=== PATIENT | female | born 1945 | race Caucasian/White ===

== ENCOUNTER 2016-07-20 09:10 | Observation (INO) | payer MEDICARE, OTHER ==
[2016-07-20] VITALS (7 sets, daily range): BP systolic 99–122; BP diastolic 55–61; PULSE 74–114; RESP 18; TEMP 98.5; Ht 167.6 cm; Wt 59.4 kg
[~2016-07-20] VITALS: Ht 167.6 cm; Wt 59.4 kg
[~2016-07-20 09:10] MED LIST: ALEN1TAB3; ALEN70TA15; ALPR1TAB2; ALPR1TAB7; ASCO500T22; BUDE6HFA; CALC-649; CALC1TAB98; CENTSILV; CHOL10009; DOCU50CA4; DULO60CA6; DUR25P; FOLI-49; HYDR-3504; HYDR200T39; LEVA15HF6; LUBI8CAP4; METO-448; METO25TA54; OLAN10TA16; OLAN20TA3; POTA10TA97; PRED-248; SENOKOTS; SYN1; ZOF8; [UNRECOGNIZED DRUG - CODE]; [UNRECOGNIZED DRUG - CODE]; [UNRECOGNIZED DRUG - CODE]; [UNRECOGNIZED DRUG - CODE]; [UNRECOGNIZED DRUG - CODE]
[2016-07-20] MEDS ORDERED: NITROGLYCERIN (SL) 0.4 MG TAB SL PRN ×2 (09:30→13:00)
[2016-07-20] MEDS ORDERED: METHYLPREDNISOLONE 125 MG INJ IV STA (09:30)
[2016-07-20] MEDS ORDERED: ASPIRIN 325 MG TAB PO STA (09:30)
[2016-07-20] MEDS ORDERED: NITROGLYCERIN 2% 1 GM OINT PKT TD STA (09:30)
[2016-07-20] MEDS: ALBUTEROL 0.5% (NEB) 2.5 MG/0.5 ML AMP INH STA ×2 (09:56→11:03)
[2016-07-20 10:23] LABS: ADD SCAN DIFF NO; BASOPHIL # 0.1 10^3/ul (0.0-0.1); BASOPHILS % 0.5 % (0.0-2.0); EOSINOPHILS # 0.1 10^3/ul (0.0-0.5); HEMATOCRIT 45.7 % (37.0-47.0); HEMOGLOBIN 14.7 g/dl (12.0-16.0); LYMPHOCYTES # 2.6 10^3/ul (0.8-2.9); LYMPHOCYTES % 23.7 % (15.0-51.0); MEAN CORPUSCULAR HEMOGLOBIN 28.5 pg (29.0-33.0); MEAN CORPUSCULAR HGB CONC 32.2 g/dl (32.0-37.0); MEAN CORPUSCULAR VOLUME 88.7 fl (82.0-101.0); MEAN PLATELET VOLUME 10.1 fl (7.4-10.4); NEUTROPHIL # 7.1 10^3/ul (1.6-7.5); NEUTROPHILS % 65.5 % (39.0-77.0); PLATELET COUNT 368 10^3/UL (140-415); RED BLOOD COUNT 5.15 10^6/ul (4.20-5.40); RED CELL DISTRIBUTION WIDTH 13.9 % (11.5-14.5); WHITE BLOOD COUNT 10.9 10^3/ul (4.8-10.8)
--- NOTE | 2016-07-20 10:29 | RADRPT ---
PROCEDURE: XR Chest. CLINICAL INDICATION: Chest pain TECHNIQUE: Single frontal chest x-ray. COMPARISON: 11/04/2008 FINDINGS: The lungs are mildly hyperinflated but clear. No focal opacification is seen. No pneumothorax or p leural effusion is seen. The cardiomediastinal silhouette is unremarkable. The osseous structures are grossly unremarkable. IMPRESSION: 1. No evidence of acute cardiopulmonary disease. 2. Mild hyperinflation. RPTAT: EE .Rush Song MD, MD Date Time Electronically viewed and signed by .Rush Song MD, on 07/20/2016 10:28 .A/
[2016-07-20 10:44] LABS: INR 0.91; PROTIME 12.3 Sec (12.2-14.2)
[2016-07-20 10:45] LABS: PARTIAL THROMBOPLASTIN TIME 27.9 Sec (25.0-35.0)
[2016-07-20 10:54] LABS: ALANINE AMINOTRANSFERASE 25 IU/L (13-69); ALBUMIN 3.8 g/dl (3.3-4.9); ALKALINE PHOSPHATASE 128 IU/L (42-121); ANION GAP 13 (8-16); ASPARTATE AMINO TRANSFERASE 30 IU/L (15-46); BILIRUBIN,INDIRECT 0.2 mg/dl (0-1.1); BILIRUBIN,TOTAL 0.2 mg/dl (0.2-1.3); BLOOD UREA NITROGEN 8 mg/dl (7-20); CALCIUM 10.4 mg/dl (8.4-10.2); CARBON DIOXIDE 30 mmol/L (21-31); CHLORIDE 101 mmol/L (97-110); CREATININE 0.74 mg/dl (0.44-1.00); GLUCOSE 107 mg/dl (70-220); POTASSIUM 4.2 mmol/L (3.5-5.1); SODIUM 140 mmol/L (135-144)
[2016-07-20 11:04] LABS: B-TYPE NATRIURETIC PEPTIDE 98 PG/ML (0-125)
[2016-07-20 11:06] LABS: TROPONIN-I < 0.012 ng/ml (0.00-0.12)
--- NOTE | 2016-07-20 12:29 | ERA ---
ER Documentation Chief Complaint Date/Time DATE: 07/20/16 TIME: 12:18 Chief Complaint CHEST PAIN GEN BODY PAIN FOR THE PAST FEW DAYS. NO TRAUMA/ MILD SOB HPI This is a 71-year-old female complains of chest pain and shortness of breath today. The patient has a history of asthma/COPD and is on oxygen as needed. She states that this morning she developed some substernal chest pressure that radiated to her shoulders and is having a hard time breathing. She says the pressure in her chest it feels different than it does when she has her asthma/ COPD exacerbations. She is not diaphoretic no palpitations no syncope. She says she has had a dry cough over the past 2-3 days. No fever no orthopnea or dyspnea on exertion ROS All systems reviewed and are negative except as per history of present illness. Medications Home Meds Reported Medications Trazodone Hcl* (Trazodone Hcl*) 50 Mg Tablet, 50 MG PO QHS, #30 TAB 07/20/16 Bisacodyl* (Dulcolax*) 5 Mg Tablet.dr, 10 MG PO DAILY Y for CONSTIPATION, TAB 07/20/16 Acetaminophen* (Tylenol*) 500 Mg Tab, 500 MG PO Q4H Y for MILD PAIN LEVEL 1-3, TAB 07/20/16 Discontinued Reported Medications Budesonide-Formoterol Fumarate* (Symbicort*) 6 Gm Hfa.aer.ad 04/20/10 Oxycodone Hcl/Acetaminophen (Oxycodon Hcl-Apap 10-325 Mg Tb) 1 Tab Tablet 04/20/10 Hydroxychloroquine Sulfate* (Hydroxychloroquine Sulfate*) 200 Mg Tablet 04/20/10 Prednisone (Prednisone) 10 Mg Tablet 04/20/10 Lubiprostone* (Amitiza*) 8 Mcg Capsule 04/20/10 Docusate Sod/Senna (Senokot-S) 1 Tab Tab 04/20/10 Docusate Sodium* (Colace*) 50 Mg Capsule 04/20/10 Ondansetron Hcl* (Zofran* ODT) 8 Mg/Tab Tab.rapdis 04/20/10 Hydrocodone Bit-Acetaminophen (Hydrocodone-APAP) 1 Tab Tablet 04/20/10 Levalbuterol* (Xopenex* HFA) 15 Gm Inha 04/20/10 Acetaminophen/Dp-Hydram Hcl (Tylenol Pm Ex-Str Caplet) 1 Tab Tablet 04/20/10 Fentanyl Patch* (Duragesic Patch*) 1 Patch Patch 04/20/10 Alendronate Sodium-Vitamin D3 (Fosamax Plus-D) 1 Tab Tablet 04/20/10 Alprazolam* (Alprazolam*) 1 Mg Tablet 04/20/10 Olanzapine* (Zyprexa*) 20 Mg Tablet 04/20/10 Calcium Carbonate (Calcium) 1 Tab Tablet 04/20/10 Cholecalciferol (Vitamin D3) 1,000 Unit Capsule 04/20/10 Calcium Carbonate/Vitamin D3 (Calcium + D Tablet) 1 Udtab Tablet 04/20/10 Multivitamins/Minerals (Centrum Silver) 1 Tab Tab 04/20/10 Potassium Chloride (Klor-Con) 10 Meq Tablet.sa 04/20/10 Phentermine Hcl (Adipex-P) 37.5 Mg Capsule 04/20/10 Levothyroxine Sodium* (Synthroid*) 100 Mcg Tablet 04/20/10 Metoprolol Tartrate* (Lopressor*) 25 Mg Tab 04/20/10 Duloxetine Hcl* (Cymbalta*) 60 Mg Capsule. 04/20/10 Calcium Carbonate/Vitamin D3 (Calcium With Vitamin D Tablet) 1 Tab Tablet 04/19/10 Simethicone (Mylanta) 125 Mg Capsule 04/19/10 Prednisone (Prednisone) 10 Mg Tablet 04/19/10 Levalbuterol* (Xopenex* HFA) 15 Gm Inha 04/19/10 Ascorbic Acid (Ascorbic Acid With Rh) 500 Mg Tablet 02/13/10 Folic Acid* (Folic Acid*) 1 Mg Tablet 02/13/10 Alendronate Sodium (Fosamax) 70 Mg Tablet 02/13/10 Alprazolam* (Xanax*) 1 Mg Tab 02/13/10 Olanzapine (Zyprexa) 10 Mg Tablet 02/13/10 Fentanyl Patch* (Duragesic Patch*) 1 Patch Patch 02/13/10 Levothyroxine Sodium* (Synthroid*) 100 Mcg Tablet 02/13/10 Metoprolol Succinate (Toprol Xl) 25 Mg Tab.sr.24h 02/13/10 Duloxetine Hcl* (Cymbalta*) 60 Mg Capsule. 02/13/10 Allergies Allergies: Coded Allergies: No Known Drug Allergy (Verified Allergy, Unknown, 02/13/10) PMhx/Soc History of Surgery: Yes (APPENDECTOMY,TUBAL LIGATION,D&C,BREAST LUMPECTOMY, GALLBLADDER,BILATERAL HIP) Anesthesia Reaction: No Hx Neurological Disorder: No Hx Respiratory Disorders: Yes (ASTHMA) Hx Cardiac Disorders: Yes (H/O HEART MURMUR.) Hx Psychiatric Problems: No Hx Alcohol Use: No Hx Substance Use: No Hx Tobacco Use: No Smoking Status: Never smoker FmHx Family History: No coronary disease Physical Exam Vitals Vital Signs Date Time Temp Pulse Resp B/P Pulse Ox O2 Delivery O2 Flow Rate FiO2 07/20/16 12:00 109 20 103/67 100 Room Air 07/20/16 11:04 98 21 99 Nasal Cannula 3.0 07/20/16 09:50 Nasal Cannula 3 07/20/16 09:20 98.5 102 24 122/79 94 Physical Exam Const: Well-developed, well-nourished Head: Atraumatic, normocephalic Eyes: Normal Conjunctiva, PERRLA, EOMI, normal sclera, no nystagmus ENT: Normal External Ears, Nose and Mouth, moist mucus membranes. Neck: Full range of motion. No meningismus, no lymphadenopathy. Resp: Bilateral distant breath sounds with some faint expiratory wheezes no increased work of breathing Cardio: Regular rate and rhythm, no murmurs, S1 S2 present Abd: Soft, non tender x 4, non distended. Normal bowel sounds, no guarding or rebound, no pulsitile abdominal masses or bruits Skin: No petechiae or rashes, no ecchymosis , no maculopapular rash Back: No midline or flank tenderness Ext: No cyanosis, or edema, FROM x 4, normal inspection, neurovascularly intact x 4 Neur: Awake and alert, STR 5/5 x 4, sensation intact x 4, no focal findings, cerebellum intact Psych: Normal Mood and Affect Result Diagram: 07/20/1695407/20/1655 Results 24 hrs Laboratory Tests Test 07/20/16 09:55 White Blood Count 10.910^3/ul Red Blood Count 5.1510^6/ul Hemoglobin 14.7g/dl Hematocrit 45.7% Mean Corpuscular Volume 88.7fl Mean Corpuscular Hemoglobin 28.5pg Mean Corpuscular Hemoglobin Concent 32.2g/dl Red Cell Distribution Width 13.9% Platelet Count 79268^3/UL Mean Platelet Volume 10.1fl Neutrophils % 65.5% Lymphocytes % 23.7% Monocytes % 9.0% Eosinophils % 1.0% Basophils % 0.5% Nucleated Red Blood Cells % 0.0/100WBC Neutrophils # 7.110^3/ul Lymphocytes # 2.610^3/ul Monocytes # 1.010^3/ul Eosinophils # 0.110^3/ul Basophils # 0.110^3/ul Nucleated Red Blood Cells # 0.010^3/ul Prothrombin Time 12.3Sec Prothrombin Time Ratio 1.0 INR International Normalized Ratio 0.91 Activated Partial Thromboplast Time 27.9Sec Sodium Level 140mmol/L Potassium Level 4.2mmol/L Chloride Level 101mmol/L Carbon Dioxide Level 30mmol/L Anion Gap 13 Blood Urea Nitrogen 8mg/dl Creatinine 0.74mg/dl Glucose Level 107mg/dl Calcium Level 10.4mg/dl Total Bilirubin 0.2mg/dl Direct Bilirubin 0.00mg/dl Indirect Bilirubin 0.2mg/dl Aspartate Amino Transf (AST/SGOT) 30IU/L Alanine Aminotransferase (ALT/SGPT) 25IU/L Alkaline Phosphatase 128IU/L Troponin I < 0.012ng/ml B-Type Natriuretic Peptide 98PG/ML Total Protein 8.0g/dl Albumin 3.8g/dl Globulin 4.20g/dl Albumin/Globulin Ratio 0.90 Current Medications Medications (Trade) Dose Ordered Sig/Viraj Route PRN Reason Start Time Stop Time Status Last Admin Dose Admin Aspirin (Aspirin) 325 mg ONCE STAT PO 07/20/16 09:30 07/20/16 09:32 DC 07/20/16 09:40 Nitroglycerin (Nitroglycerin 2% Oint) 1 inch ONCE STAT TD 07/20/16 09:30 07/20/16 12:46 DC 07/20/16 09:41 Nitroglycerin (Nitroglycerin (Sl Tab) 0.4 Mg) 1 tab Q5M UP TO 3 DOSES PRN SL CHEST PAIN 07/20/16 09:30 07/20/16 12:23 Albuterol (Proventil 0.5% (Neb)) 10 mg ONCE STAT INH 07/20/16 09:30 07/20/16 09:32 DC 07/20/16 11:03 Methylprednisolone Sodium Succinate (Solu-Medrol) 125 mg ONCE STAT IV 07/20/16 09:30 07/20/16 09:32 DC 07/20/16 09:40 IV Flush (NS 3 ml) 3 ml PER PROTOCOL IV 07/20/16 13:00 Ondansetron HCl (Zofran Inj) 4 mg Q6H PRN IV NAUSEA AND/OR VOMITING 07/20/16 13:00 Aspirin (Aspirin) 81 mg DAILY PO 07/21/16 09:00 Nitroglycerin (Nitroglycerin (Sl Tab) 0.4 Mg) 1 tab Q5M PRN SL CHEST PAIN 07/20/16 13:00 Acetaminophen (Tylenol Tab) 650 mg Q6H PRN PO PAIN LEVEL 1-3 OR FEVER 07/20/16 13:00 Acetaminophen/ Hydrocodone Bitart ([place] (5/325)) 1 tab Q6H PRN PO PAIN LEVEL 4-6 07/20/16 13:00 Acetaminophen/ Hydrocodone Bitart ([place] (5/325)) 2 tab Q6H PRN PO PAIN LEVEL 7-10 07/20/16 13:00 Docusate Sodium (Colace) 100 mg Q12H PRN PO CONSTIPATION 07/20/16 13:00 Magnesium Hydroxide (Milk Of Mag) 30 ml DAILY PRN PO CONSTIPATION 07/20/16 13:00 Bisacodyl (Dulcolax Supp) 10 mg DAILY PRN HI CONSTIPATION 07/20/16 13:00 Pantoprazole (Protonix Tab) 40 mg DAILY@06 PO 07/21/16 06:00 Enoxaparin Sodium (Lovenox) 40 mg DAILY SC 07/20/16 13:00 Procedures/[facility] PROCEDURE: XR Chest. CLINICAL INDICATION: Chest pain TECHNIQUE: Single frontal chest x-ray. COMPARISON: 11/04/2008 FINDINGS: The lungs are mildly hyperinflated but clear. No focal opacification is seen. No pneumothorax or pleural effusion is seen. The cardiomediastinal silhouette is unremarkable. The osseous structures are grossly unremarkable. IMPRESSION: 1. No evidence of acute cardiopulmonary disease. 2. Mild hyperinflation. RPTAT: EE .Rush Song MD, MD Date Time Electronically viewed and signed by .Rush Song MD, on 07/20/2016 10:28 .A/ CC: ZACHARY CLAY DO EKG: Rate/Rhythm: Sinus tachycardia heart rate 103, right axis deviation pulmonary disease pattern QRS, ST, QT: NORMAL HI, QRS, QT] Impression: Abnormal EKG] Patient received a continuous nebulizer treatment. On reevaluation the patient says her chest pain is improved but is still slightly very. The nurse had not given her sublingual nitroglycerin yet but only put paste on will attempt a sublingual now. Concern is that the patient is having chest pain radiating to her shoulders that feels like a different type of sensation that she usually has when she has her COPD exacerbations. She says she usually does not have this type of pain and she does not have radiation to the shoulder We will admit her for cardiac workup as well as pulmonary therapy. Patient's symptoms are concerning for cardiac cause will require inpatient workup and continuous monitoring. Further w/u for ischemia, arrhythmia, PE or dissection will be deferred to the inpatient team. Accepting Care Team: Current data and ongoing care discussed. Time: Time of admission Primary Provider: marcela Consulting: ALLISON Outstanding Data: none Departure Diagnosis: Primary Impression: Chest pain Qualified Code: R07.9 - Chest pain, unspecified type Additional Impression: COPD exacerbation Condition: Stable ZACHARY CLAY DO July 20, 2016 12:28
[2016-07-20] MEDS ORDERED: TYL500 PO (12:48)
[2016-07-20] MEDS ORDERED: TRAZ50TA18 PO (12:48)
[2016-07-20] MEDS ORDERED: BISA-57 PO (12:48)
[2016-07-20] MEDS ORDERED: SOD CHLORIDE 0.9% 1,000 ML IV SCH (12:53)
[2016-07-20] MEDS ORDERED: ALBUTEROL/IPRATROPIUM (NEB) 3 ML AMP HHN PRN (13:00)
[2016-07-20] MEDS ORDERED: MAGNESIUM HYDROXIDE 30ML CUP PO PRN (13:00)
[2016-07-20] MEDS ORDERED: DOCUSATE SODIUM 100 MG CAP PO PRN (13:00)
[2016-07-20] MEDS ORDERED: BISACODYL 10 MG SUPP PR PRN (13:00)
[2016-07-20] MEDS ORDERED: NACL 0.9% 3 ML SYG IV SCH (13:00)
[2016-07-20] MEDS ORDERED: ACETAMINOPHEN 325 MG TAB PO PRN ×2 (13:00)
[2016-07-20] MEDS ORDERED: ONDANSETRON 4 MG INJ IV PRN ×2 (13:00)
[2016-07-20] MEDS ORDERED: HYDROCODONE/APAP (5/325) TAB PO PRN (13:00)
[2016-07-20] MEDS ORDERED: LEVO88TA3 PO (14:24)
[2016-07-20] MEDS ORDERED: LACTINEX PO (14:25)
[2016-07-20] MEDS ORDERED: DOCU-144 PO (14:25)
[2016-07-20] MEDS ORDERED: PANT40TA4 PO (14:25)
[2016-07-20] MEDS ORDERED: CITA20TA6 PO (14:26)
[2016-07-20] MEDS ORDERED: MELA3TAB51 PO (14:27)
[2016-07-20] MEDS ORDERED: ONDA4TAB95 PO (14:28)
[2016-07-20] MEDS ORDERED: IBUP-1542 PO (14:28)
[2016-07-20] MEDS ORDERED: TRAM-40 PO (14:28)
--- NOTE | 2016-07-20 14:29 | RADRPT ---
PROCEDURE: US Lower extremity venous, bilateral CLINICAL INDICATION: r/o DVT TECHNIQUE: Multiple sonographic images of the bilateral lower extremity deep venous system was ob tained utilizing grayscale, color-flow, compressive sonography and doppler imaging with augmentation . The images were reviewed on a PACS workstation. COMPARISON: None. FINDINGS: There is normal compressibility and flow within the bilateral common femoral, superficial femoral , posterior tibial, peroneal and popliteal veins. RPTAT: AA IMPRESSION: No sonographic evidence for deep venous thrombosis in bilateral lower extremities. Physician Yue Date Time Electronically viewed and signed by Physician Yue on 07/20/2016 14:29 RA/
--- NOTE | 2016-07-20 14:41 | HP ---
DATE OF ADMISSION: 07/20/2016 PRIMARY CARE PHYSICIAN: Dr. Antoine CHIEF COMPLAINT ON ADMISSION: Chest pressure. HISTORY OF PRESENT ILLNESS: This is a 71-year-old female with a previous history of COPD, more or l ess oxygen dependent, but lately has not been really requiring much oxygen and also reported rheumat oid arthritis for which she is not taking any medication, who presented to the emergency department with acute onset of chest pressure this morning. The patient reports that she went to bed in her [facility] last night. She woke up around 4:00 a.m. with severe chest pressure, inability to take a deep breath. No nausea, no vomiting, no dizziness. This per sister, she came to the [facility]. In the emergency department, she did receive nitroglycerin and put on oxygen and also given her history, she did receive steroids and nebulizer treatment. She feels better currentl y. She is noted to be slightly tachycardic, but she did get nebulizer treatment. BNP is within nor mal. Troponin is negative. We will check a D-dimer and bilateral Dopplers of the lower extremities . If there is any additional indication, she will have a CT angiogram. The patient reports that sh checo is wheelchair bound, at least she is not really ambulatory. She denies any previous history of ve nous thromboembolism, coronary artery disease. Based on previous admission, she was on multiple med ications, but the patient reports that currently she only takes 3 medications and none of them are p ulmonary, cardiac or for rheumatoid arthritis. She will be admitted to telemetry observation. ALLERGIES: NO KNOWN ALLERGIES. PAST MEDICAL HISTORY: This is based on the reports on previous admission. 1. COPD, which is confirmed with the patient, occasionally oxygen dependent. 2. Rheumatoid arthritis. 3. Possible hypothyroidism. PAST SURGICAL HISTORY: 1. Status post right total hip replacement in February of 2010. 2. Status post left total hip replacement in October of 2008. 3. Laparoscopic cholecystectomy in 2009. 4. Status post appendectomy remotely. 5. Status post right breast lumpectomy remotely. 6. Status post tubal ligation, dilatation and curettage in the past. REVIEW OF SYSTEMS: As per HPI. OUTPATIENT MEDICATIONS: Listed. The patient only has 3 medications listed: 1. Tylenol 500 mg p.o. q.4h. p.r.n. mild pain. 2. Trazodone 50 mg p.o. at bedtime. 3. Dulcolax 10 mg p.o. daily p.r.n. constipation. PHYSICAL EXAMINATION: VITAL SIGNS: Temperature is 98.5, heart rate of 114, respiratory rate of 20, blood pressure 96/57. Patient is satting 100% on 3 liters nasal cannula. GENERAL: Generally, she is alert. She is oriented x4. She is in no acute distress. She is lying in a stretcher. She feels better with less chest pressure at this point. HEENT: Pupils are equally round and reactive to light. Extraocular muscles are intact. Anicteric sclerae. NECK: No JVD, no thyromegaly noted. HEART: Regular rhythm, tachycardic slightly. ABDOMEN: Soft, nontender, nondistended. Bowel sounds are present. EXTREMITIES: No edema, clubbing or cyanosis. NEUROLOGIC: Grossly intact with 5/5 strength, but limited range of movement due to arthritis, sever e. The patient again is wheelchair bound at most. LABORATORY DATA: White blood cell count is 10.9, hemoglobin 14.7, hematocrit 45.7, platelet count o f 368. Chemistry with a sodium of 140, potassium 4.2, chloride 101, bicarbonate 30, BUN 8, creatini ne 0.74, calcium of 10.4, total bilirubin 0.2, AST 30, ALT 25, alkaline phosphatase of 128, troponin less than 0.012. BNP of 98. Total protein 8.0. INR is 0.91. PT 12.3, PTT 27.9. ELECTROCARDIOGRAM: Does not show any acute ST or T-wave abnormalities. RADIOLOGICAL DATA: Chest x-ray shows no evidence of acute pulmonary disease, mild hyperinflation of the lungs. ASSESSMENT AND PLAN: This is a 71-year-old female with: 1. Chest pressure, new onset this morning, improving. Given her sedentary nature, I will also ru le out for any venous thromboembolism while she is being ruled out for coronary artery disease. Cur rently, we will start with Dopplers and a D-dimer. If they are indicators of possibly venous thromb oembolism, now will proceed with a CT angiogram. A 2-D echocardiogram is ordered. Cardiac enzymes will be trended by the morning. 2. Chronic obstructive pulmonary disease per history. Occasionally O2 dependent. This could be al so chronic obstructive pulmonary disease exacerbation and mild flare. She already received steroids in the ER. We will continue Solu-Medrol 60 mg IV q.8h., with plan to transition to p.o. taper by tomorrow. Continue nebulizer treatment. Continue Advair and Spiriva is added. 3. Previous reported hypothyroidism. Will check TSH and free T4. The patient has not been on any medications as an outpatient. 4. Rheumatoid arthritis. The patient reports that she has been mostly wheelchair bound due to mauro re arthritis. She is not on any medication currently. She will be referred to rheumatology if need ed as an outpatient. 5. Prophylaxis. Lovenox for deep vein thrombosis prophylaxis and Pepcid for gastrointestinal proph ylaxis. DISPOSITION: The patient is admitted to telemetry observation. Follow up on Doppler of the lower e xtremity and D-dimer. Dictated By: SHELBI MATTSON/SUMEET Conf#: [id number] DID#: [id number]
[2016-07-20] MEDS: METHYLPREDNISOLONE 125 MG INJ IV SCH ×2 (15:27→21:08)
[2016-07-20] MEDS: ENOXAPARIN 40 MG/0.4 ML SYG SC SCH (15:32)
--- NOTE | 2016-07-20 15:34 | RADRPT ---
Echocardiogram Report Patient Name: KIMI GOLD Gender: Female Date: 1945 Study Date: 20-Jul-2016 Freelance Director: Fabian Gaytan RDCS Location: 6 Ref. Physician: VENKAT HOLLINGSWORTH Quality: Technically Difficult Study Procedures: Transthoracic echocardiogram with complete 2D, M-Mode, and doppler examination. Indications: Chest Pain. 2D/M Mode Doppler Measurement Value Normal Ranges Measurement Value Normal Ranges LVIDd 2D 2.8 3.5 - 5.6 cm AV Peak Juan 0.9 m/sec LVIDs 2D 2.4 2.1 - 4.1 cm AV Peak PG 3.5 mmHg LVPWd 2D 0.9 0.6 - 1.1 cm LVOT Peak Juan 0.9 m/sec IVSd 2D 1.0 0.6 - 1.1 cm LVOT Peak PG 3.2 mmHg AoR Diam 2D 1.9 2.0 - 3.7 cm MV E Peak Juan 0.6 m/sec EDV 2D 29.7 cm3 MV A Peak Juan 0.8 m/sec ESV 2D 13.1 cm3 MV E/A 0.7 LA Dimen 2D 2.2 2.3 - 4.0 cm MV Decel Time 180 msec MV Decel Gilmer 3 MV E/A 0.7 Findings Left Ventricle: Overall, normal left ventricular systolic function. Not all segments visualized. Normal left ventricular cavity size. Normal left ventricular wall thickness. Ejection fraction is visually estimated at 65 %. Tissue Doppler/Mitral Doppler indices are consistent with impaired relaxation (Stage I diastolic dysfunction). Right Ventricle: Normal right ventricular size. Normal right ventricular systolic function. Left Atrium: The left atrium is normal in size. Right Atrium: The right atrium is normal in size. Mitral Valve: Mitral valve is not well visualized. Trace mitral regurgitation. Aortic Valve: No significant aortic stenosis or insufficiency. Aortic valve not well visualized. Tricuspid Valve: Tricuspid valve not well visualized. Estimated peak PA systolic pressure 22 mmHg. There is trace tricuspid regurgitation. Pulmonic Valve: Pulmonic valve not well visualized. Pericardium: Normal pericardium with no significant pericardial effusion. Aorta: Normal aortic root. IVC: Normal size and normal respiratory collapse consistent with normal right atrial pressure. Conclusions 1.Overall, normal left ventricular systolic function. Not all segments visualized. Normal left ventricular cavity size. Normal left ventricular wall thickness. Ejection fraction is visually estimated at 65 %. Tissue Doppler/Mitral Doppler indices are consistent with impaired relaxation (Stage I diastolic dysfunction). 2.Normal right ventricular size. Normal right ventricular systolic function. 3.The left atrium is normal in size. 4.The right atrium is normal in size. 5.No significant valvular stenosis or regurgitation seen. 6.Normal pericardium with no significant pericardial effusion. Electronically Signed By: Henok Devries 20-Jul-2016 15:33:51 -0700 Patient Name: KIMI GOLD Study Date: 20-Jul-2016 [id number]
[2016-07-20 15:39] LABS: D-DIMER 665.81 ng/ml (<460)
[2016-07-20] MEDS: ALBUTEROL/IPRATROPIUM (NEB) 3 ML AMP HHN SCH ×2 (16:00→23:17)
[2016-07-20 17:00] LABS: CK-MB 0.23 ng/ml (0.0-2.4)
[2016-07-20 17:09] LABS: CREATINE KINASE < 20 IU/L (23-200); TROPONIN-I < 0.012 ng/ml (0.00-0.12)
[2016-07-20] MEDS: SALMETEROL/FLUTICASONE 250/50 INHA INH SCH (20:07)
[2016-07-20] MEDS: HYDROCODONE/APAP (5/325) TAB PO PRN ×2 (20:08→21:07)
[2016-07-20] MEDS ORDERED: SOD CHLORIDE 0.9% 100 ML ONE (20:09)
[2016-07-20] MEDS ORDERED: IOHEXOL 100 ML ONE (20:09)
[2016-07-20] MEDS ORDERED: IOHEXOL 350MG/ML 50 ML BTL ONE (20:09)
[2016-07-20] MEDS ORDERED: traZODone 50 MG TAB PO SCH (21:00)
--- NOTE | 2016-07-20 21:03 | RADRPT ---
PROCEDURE: CTA Chest. CLINICAL INDICATION: Chest pain and shortness of breath TECHNIQUE: The study was performed utilizing a GE 64-slice multidetector CT scanner. Multiple axia l sections were obtained from the thoracic inlet to the upper abdomen with the use of 88 cc of Omnip aque- 350 nonionic intravenous contrast material. Coronal and sagittal reformations were obtained. 3 -D reformatted images were performed. The images were reviewed on a PACS workstation. The CTDI vol is 23.74 mGy and the DLP is 385.68 mGy-cm. COMPARISON: No prior studies are available for comparison. FINDINGS: No filling defect in the pulmonary arterial system is seen. The main and central pulmonary arteries are normal in course and caliber. Aortic calcifications are seen. The aorta is without aneurysmal d ilatation or dissection. Diffuse central lobular emphysematous changes are seen. Scarring in the ri ght middle lobe in bilateral lower lobes is seen. No dense consolidation is seen. Bilateral peribr onchial thickening is seen. The heart is not enlarged. No pericardial effusion is seen. No abnorma lly enlarged lymph nodes in the mediastinum, hilum, or axilla are seen. No suspicious osteoblastic f or osteolytic lesions are seen. Diffuse osteopenia is seen. The compression fracture of the T12 vert ebral body is seen which demonstrates approximately 25% height loss. Approximate 2-3 mm retropulsio n of the posterior superior endplate of T12 is seen. Mild height loss is also seen of the inferior endplates of T4 and L1. The gallbladder has been removed. A left renal cyst is seen. The visualized portions of the upper abdomen is grossly unremarkable. IMPRESSION: 1. No CT evidence for pulmonary embolus. 2. Diffuse centrilobular emphysematous changes. 3. Multiple compression fractures as detailed above which is most prominent at T12 with approximate ly 25% height loss and 2-3 mm of retropulsion of the posterior superior endplate. Consider further evaluation with an MRI as clinically warranted. 4. Bilateral peribronchial thickening which may be related to bronchitis. RPTAT: HPNM Physician Emmanuel Date Time Electronically viewed and signed by Physician Emmanuel on 07/20/2016 21:02 /
[2016-07-20] MEDS: METOPROLOL 25 MG TAB PO SCH (22:45)
[2016-07-20] MEDS: SOD CHLORIDE 0.9% 1,000 ML IV SCH (22:46)
[2016-07-21] VITALS (9 sets, daily range): BP systolic 87–101; BP diastolic 48–56; PULSE 85–112; RESP 18–20
[2016-07-21 00:48] LABS: CREATINE KINASE < 20 IU/L (23-200)
[2016-07-21 00:50] LABS: CK-MB 0.27 ng/ml (0.0-2.4); TROPONIN-I < 0.012 ng/ml (0.00-0.12)
[2016-07-21] MEDS ORDERED: PANTOPRAZOLE (EC) 40 MG TAB PO SCH (06:00)
[2016-07-21] MEDS: METHYLPREDNISOLONE 125 MG INJ IV SCH ×2 (06:00→14:00)
[2016-07-21 07:33] LABS: ADD SCAN DIFF NO
[2016-07-21 07:35] LABS: BASOPHILS % 0.1 % (0.0-2.0); HEMATOCRIT 36.4 % (37.0-47.0); HEMOGLOBIN 11.7 g/dl (12.0-16.0); LYMPHOCYTES # 1.4 10^3/ul (0.8-2.9); LYMPHOCYTES % 12.5 % (15.0-51.0); MEAN CORPUSCULAR HEMOGLOBIN 28.3 pg (29.0-33.0); MEAN CORPUSCULAR HGB CONC 32.1 g/dl (32.0-37.0); MEAN CORPUSCULAR VOLUME 87.9 fl (82.0-101.0); MEAN PLATELET VOLUME 9.9 fl (7.4-10.4); MONOCYTE # 0.3 10^3/ul (0.3-0.9); MONOCYTES % 2.3 % (0.0-11.0); NEUTROPHIL # 9.7 10^3/ul (1.6-7.5); NEUTROPHILS % 84.6 % (39.0-77.0); PLATELET COUNT 308 10^3/UL (140-415); RED BLOOD COUNT 4.14 10^6/ul (4.20-5.40); WHITE BLOOD COUNT 11.4 10^3/ul (4.8-10.8)
[2016-07-21] MEDS: ALBUTEROL/IPRATROPIUM (NEB) 3 ML AMP HHN SCH ×2 (07:49→16:21)
[2016-07-21 07:55] LABS: CALCIUM 9.5 mg/dl (8.4-10.2); CHOL/HDL RATIO 5.1 RATIO; CREATININE 0.72 mg/dl (0.44-1.00); MAGNESIUM 1.8 mg/dl (1.7-2.5); POTASSIUM 4.1 mmol/L (3.5-5.1)
[2016-07-21] MEDS: METOPROLOL 25 MG TAB PO SCH (08:09)
[2016-07-21] MEDS: SALMETEROL/FLUTICASONE 250/50 INHA INH SCH (08:21)
[2016-07-21] MEDS: ENOXAPARIN 40 MG/0.4 ML SYG SC SCH (08:23)
[2016-07-21] MEDS ORDERED: TIOTROPIUM 18 MCG CAPSULE INHA DEV INH SCH (09:00)
[2016-07-21] MEDS ORDERED: ASPIRIN 81 MG TAB PO SCH (09:00)
[2016-07-21] MEDS: SOD CHLORIDE 0.9% 1,000 ML IV SCH (11:00)
--- NOTE | 2016-07-21 11:57 | PN ---
Date/Time of Note Date/Time of Note DATE: 07/21/16 TIME: 11:48 Assessment/Plan VTE Prophylaxis VTE Prophylaxis Intervention: LMWH Lines/Catheters IV Catheter Type (from [facility] Saline Lock Urinary Cath still in place: No Assessment/Plan Assessment/Plan 71-year-old female with: 1. Chest pressure, new onset this morning, improving. Seems non cardiac chest pressure, 2ry to COPD Resolved and CE negative x 3 2D echo ordered Continue COPD treatment CTA negative and Doppler negative 2. Chronic obstructive pulmonary disease per history, home O2 at least while sleeping Advair and Spiriva added along with DuoNeb prn D/c with Medrol dose pack 3. Hypothyroidism. TFTs wnl and on Synthroid per updated med rec. 4. Rheumatoid arthritis. The patient reports that she has been mostly wheelchair bound due to severe arthritis. She is not on any medication currently. She will be referred to rheumatology if needed as an outpatient. 5. Chronic pain with hx of T spine compression fx, pelvic fx ... On tylenol at home, at most tramadol prn at home to be continued Prophylaxis. Lovenox for deep vein thrombosis prophylaxis and Pepcid for gastrointestinal prophylaxis. DISPOSITION: D/c home and follow up with Home Health RN and PCP Outpatient cardiology referral as needed . Subjective 24 Hr Interval Summary Free Text/Dictation Patient doing better, back to baseline ans no chest pressure all w/u negative so far D/c home with HH today Exam/Review of Systems Vital Signs Vitals Vital Signs Date Time Temp Pulse Resp B/P Pulse Ox O2 Delivery O2 Flow Rate FiO2 07/21/16 11:27 98.1 93 20 88/50 97 07/21/16 07:50 2.0 07/21/16 07:50 Nasal Cannula Intake and Output 07/20/16 07/20/16 07/21/16 15:00 23:00 07:00 Intake Total 280 ml Balance 280 ml Exam Constitutional: alert, frail, oriented Respiratory: clear to auscultation, normal air movement Cardiovascular: nl pulses, regular rate and rhythm Gastrointestinal: non-tender, soft Musculoskeletal: nl extremities to inspection Extremities: normal pulses, other (no edema, clubibng or cyanosis ) Neurological: GOLD STAMPER II-XII intact, nl mental status, nl speech, other ( generalised weakness mostly bed/wheelchair ridden ) Results Result Diagram: 07/21/16 0647 07/21/16 0647 Results 24 hrs Laboratory Tests Test 07/20/16 15:06 07/20/16 16:10 07/20/16 21:55 07/21/16 06:47 D-Dimer 665.81 H D-Dimer Comment Thyroid Stimulating Hormone (TSH) 0.035 L Free Thyroxine 1.42 Creatine Kinase < 20 L < 20 L Creatine Kinase Index Creatinine Kinase MB (Mass) 0.23 0.27 Troponin I < 0.012 < 0.012 White Blood Count 11.4 H Red Blood Count 4.14 L Hemoglobin 11.7 #L Hematocrit 36.4 #L Mean Corpuscular Volume 87.9 Mean Corpuscular Hemoglobin 28.3 L Mean Corpuscular Hemoglobin Concent 32.1 Red Cell Distribution Width 14.0 Platelet Count 308 Mean Platelet Volume 9.9 Neutrophils % 84.6 H Lymphocytes % 12.5 L Monocytes % 2.3 Eosinophils % 0.0 Basophils % 0.1 Nucleated Red Blood Cells % 0.0 Neutrophils # 9.7 H Lymphocytes # 1.4 Monocytes # 0.3 Eosinophils # 0.0 Basophils # 0.0 Nucleated Red Blood Cells # 0.0 Sodium Level 137 Potassium Level 4.1 Chloride Level 106 Carbon Dioxide Level 26 Anion Gap 9 Blood Urea Nitrogen 18 # Creatinine 0.72 Glucose Level 159 Hemoglobin A1c 5.4 Calcium Level 9.5 Magnesium Level 1.8 Triglycerides Level 77 Cholesterol Level 185 LDL Cholesterol, Calculated 134 HDL Cholesterol 36 Cholesterol/HDL Ratio 5.1 Medications Medications Current Medications Ondansetron HCl (Zofran Inj) 4 mg Q6H PRN IV NAUSEA AND/OR VOMITING; Start at 13:00 Aspirin (Aspirin) 81 mg DAILY PO Last administered on 07/21/16 08:20; Admin Dose 81 MG; Start 07/21/16 at 09:00 Nitroglycerin (Nitroglycerin (Sl Tab) 0.4 Mg) 1 tab Q5M PRN SL CHEST PAIN; Start 07/20/16 at 13:00 Acetaminophen (Tylenol Tab) 650 mg Q6H PRN PO PAIN LEVEL 1-3 OR FEVER; Start at 13:00 Acetaminophen/ Hydrocodone Bitart ([place] (5/325)) 1 tab Q6H PRN PO PAIN LEVEL 4 -6 Last administered on 07/20/16 21:07; Admin Dose 1 TAB; Start 07/20/16 at 13: 00 Acetaminophen/ Hydrocodone Bitart ([place] (5/325)) 2 tab Q6H PRN PO PAIN LEVEL 7 -10 Last administered on 07/21/16 08:22; Admin Dose 2 TAB; Start 07/20/16 at 13 :00 Docusate Sodium (Colace) 100 mg Q12H PRN PO CONSTIPATION; Start 07/20/16 at 13: 00 Magnesium Hydroxide (Milk Of Mag) 30 ml DAILY PRN PO CONSTIPATION; Start at 13:00 Bisacodyl (Dulcolax Supp) 10 mg DAILY PRN [place] CONSTIPATION; Start 07/20/16 at 13 :00 Pantoprazole (Protonix Tab) 40 mg DAILY@06 PO Last administered on 07/21/16 06 :00; Admin Dose 40 MG; Start 07/21/16 at 06:00 Enoxaparin Sodium (Lovenox) 40 mg DAILY SC Last administered on 07/21/16 08:23 ; Admin Dose 40 MG; Start 07/20/16 at 13:00 Methylprednisolone Sodium Succinate (Solu-Medrol) 60 mg Q8 IV Last administered on 07/21/16 06:00; Admin Dose 60 MG; Start 07/20/16 at 14:00 Tiotropium [place] (Spiriva) 1 inh DAILY INH Last administered on 07/21/16 08: 21; Admin Dose 1 INH; Start 07/21/16 at 09:00 Trazodone HCl (Desyrel) 50 mg QHS PO Last administered on 07/20/16 22:07; Admin Dose 50 MG; Start 07/20/16 at 21:00 Salmeterol Xinafoate/ Fluticasone 1 inh 1 inh BID INH Last administered on 07/21 08:21; Admin Dose 1 INH; Start 07/20/16 at 21:00 Sodium Chloride (NS) 1,000 ml @ 80 mls/hr [id number] IV Last administered on 07/20 22:46; Admin Dose 80 MLS/HR; Start 07/20/16 at 22:30 Metoprolol Tartrate (Lopressor) 25 mg BID PO Last administered on 07/20/16 22: 45; Admin Dose 25 MG; Start 07/20/16 at 22:30 Procedures Procedures PROCEDURE: CTA Chest. CLINICAL INDICATION: Chest pain and shortness of breath TECHNIQUE: The study was performed utilizing a GE 64-slice multidetector CT scanner. Multiple axial sections were obtained from the thoracic inlet to the upper abdomen with the use of 88 cc of Omnipaque- 350 nonionic intravenous contrast material. Coronal and sagittal reformations were obtained. 3-D reformatted images were performed. The images were reviewed on a PACS workstation. The CTDI vol is 23.74 mGy and the DLP is 385.68 mGy-cm. COMPARISON: No prior studies are available for comparison. FINDINGS: No filling defect in the pulmonary arterial system is seen. The main and central pulmonary arteries are normal in course and caliber. Aortic calcifications are seen. The aorta is without aneurysmal dilatation or dissection. Diffuse central lobular emphysematous changes are seen. Scarring in the right middle lobe in bilateral lower lobes is seen. No dense consolidation is seen. Bilateral peribronchial thickening is seen. The heart is not enlarged. No pericardial effusion is seen. No abnormally enlarged lymph nodes in the mediastinum, hilum, or axilla are seen. No suspicious osteoblastic for osteolytic lesions are seen. Diffuse osteopenia is seen. The compression fracture of the T12 vertebral body is seen which demonstrates approximately 25% height loss. Approximate 2-3 mm retropulsion of the posterior superior endplate of T12 is seen. Mild height loss is also seen of the inferior endplates of T4 and L1. The gallbladder has been removed. A left renal cyst is seen. The visualized portions of the upper abdomen is grossly unremarkable. IMPRESSION: 1. No CT evidence for pulmonary embolus. 2. Diffuse centrilobular emphysematous changes. 3. Multiple compression fractures as detailed above which is most prominent at T12 with approximately 25% height loss and 2-3 mm of retropulsion of the posterior superior endplate. Consider further evaluation with an MRI as clinically warranted. 4. Bilateral peribronchial thickening which may be related to bronchitis. RPTAT: HPNM Physician Emmanuel Date Time Electronically viewed and signed by Physician Emmanuel on 07/20/2016 21 :02 PROCEDURE: US Lower extremity venous, bilateral CLINICAL INDICATION: r/o DVT TECHNIQUE: Multiple sonographic images of the bilateral lower extremity deep venous system was obtained utilizing grayscale, color-flow, compressive sonography and doppler imaging with augmentation. The images were reviewed on a PACS workstation. COMPARISON: None. FINDINGS: There is normal compressibility and flow within the bilateral common femoral, superficial femoral , posterior tibial, peroneal and popliteal veins. RPTAT: AA IMPRESSION: No sonographic evidence for deep venous thrombosis in bilateral lower extremities. SHELBI HOLLINGSWORTH July 21, 2016 11:57 SHELBI HOLLINGSWORTH July 21, 2016 11:57
--- NOTE | 2016-07-21 11:58 | PDOCDIS ---
Discharge Instructions CONDITION Patient Condition: Good HOME CARE INSTRUCTIONS: Diet Instructions: Regular ACTIVITY: Activity Restrictions: Slowly Increase Activity FOLLOW UP/APPOINTMENTS Appointments Home O2 Home Health RN or RT Follow up with PCP within 1 week SHELBI HOLLINGSWORTH July 21, 2016 11:58
[2016-07-21] MEDS ORDERED: TIOT18CA INH (12:01)
[2016-07-21] MEDS ORDERED: MED4DP PO (12:01)
[2016-07-21] MEDS ORDERED: IPRA3AMP HHN (12:01)
[2016-07-21] MEDS ORDERED: ADV25050 INH (12:01)
[2016-07-21] MEDS ORDERED: TRAM50TA2 PO (12:08)
[2016-07-21] MEDS ORDERED: CITALOPRAM 20 MG TAB PO SCH (12:30)
[2016-07-21] MEDS ORDERED: traMADol 50 MG TAB PO PRN (12:30)
[2016-07-21] MEDS ORDERED: IBUPROFEN 600 MG TAB PO PRN (12:30)
[2016-07-21] MEDS ORDERED: DOCUSATE SODIUM 100 MG CAP PO SCH (21:00)
[2016-07-22] MEDS ORDERED: LEVOTHYROXINE 88 MCG TAB PO SCH (07:00)
== END 2016-07-21 18:36 | disposition home or self-care (01) ==
LOC: E/R 09:10 → MS4 12:54
PROVIDERS: ADMIT Internal Medicine; ATTEND Internal Medicine
DX: R07.89 Other chest pain (principal); J45.909 Unspecified asthma, uncomplicated; J44.9 Chronic obstructive pulmonary disease, unspecified; Z99.81 Dependence on supplemental oxygen; M06.9 Rheumatoid arthritis, unspecified; Z96.643 Presence of artificial hip joint, bilateral; Z90.49 Acquired absence of other specified parts of digestive tract; G89.29 Other chronic pain
CPT/HCPCS: 36415; 71010; 71275; 80048; 80053; 80061; 82550; 82553; 83036; 83735; 83880; 84439; 84443; 84484; 85025; 85378; 85610; 85730; 93005; 93306; 93970; 94640; 94644; 94664; 96372; 96374; 99285; G0378; J1650; J2930; J7030; Q9967

== ENCOUNTER 2016-12-27 13:49 | Emergency (ER) | payer OTHER ==
[~2016-12-27] VITALS: Ht 160 cm; Wt 58.2 kg
[~2016-12-27 13:49] MED LIST changes: +ADV25050 INH; -ALEN1TAB3; -ALEN70TA15; -ALPR1TAB2; -ALPR1TAB7; -ASCO500T22; +BISA-57 PO; -BUDE6HFA; -CALC-649; -CALC1TAB98; -CENTSILV; -CHOL10009; +CITA20TA6 PO; +DOCU-144 PO; -DOCU50CA4; -DULO60CA6; -DUR25P; -FOLI-49; -HYDR-3504; -HYDR200T39; +IBUP-1542 PO; +IPRA3AMP HHN; +LACTINEX PO; -LEVA15HF6; +LEVO88TA3 PO; -LUBI8CAP4; +MED4DP PO; +MELA3TAB51 PO; -METO-448; -METO25TA54; -OLAN10TA16; -OLAN20TA3; +ONDA4TAB95 PO; +PANT40TA4 PO; -POTA10TA97; -PRED-248; -SENOKOTS; -SYN1; +TIOT18CA INH; +TRAM50TA2 PO; +TRAZ50TA18 PO; +TYL500 PO; -ZOF8; -[UNRECOGNIZED DRUG - CODE]; -[UNRECOGNIZED DRUG - CODE]; -[UNRECOGNIZED DRUG - CODE]; -[UNRECOGNIZED DRUG - CODE]; -[UNRECOGNIZED DRUG - CODE]
[2016-12-27 13:56] VITALS: Ht 160 cm; Wt 58.2 kg
[2016-12-27] MEDS ORDERED: METOCLOPRAMIDE 10 MG INJ IV STA (16:25)
[2016-12-27] MEDS ORDERED: morphine 4 MG/ML VIAL IV STA (16:25)
[2016-12-27] MEDS ORDERED: KETOROLAC 30 MG INJ IV STA (16:25)
[2016-12-27] MEDS ORDERED: SOD CHLORIDE 0.9% 500 ML IV STA (16:25)
--- NOTE | 2016-12-27 18:21 | RADRPT ---
PROCEDURE: Noncontrast CT Head. CLINICAL INDICATION: Headache TECHNIQUE: Noncontrast CT of the head was obtained. The administered radiation dose was CTDI vol = 43.2 mGy, DLP = 846.97 mGy-cm. One or more of the following dose reduction techniques were used: Aut omated exposure control, Adjustment of the mA and/or kV according to patient size, or Use of iterati ve reconstruction technique. COMPARISON: There are no similar studies submitted for comparison. FINDINGS: There is no acute intracranial hemorrhage, midline shift, or mass effect. No extra-axial collection is seen. The cerebral helton-white matter differentiation appears preserved. Patchy and confluent low attenuation in the periventricular, deep, and subcortical cerebral white matter is nonspecific, but suggestive of mild to moderate chronic microvascular ischemic white matter change per bilateral symm etric basal ganglia calcifications are noted, nonspecific. There is mild to moderate diffuse cerebra l volume loss with compensatory diffuse cerebral sulcal and ventricular enlargement. The basal ciste rns are preserved. There is intracranial calcific atherosclerotic disease involving the internal car otid arteries and vertebral arteries bilaterally. There is mild diffuse cerebellar volume loss. The brainstem and cerebellum are otherwise grossly unremarkable, although suboptimally evaluated with CT secondary to beam-hardening artifact. The visualized paranasal sinuses and mastoid air cells are clear. No acute fracture or suspicious osseous lesion is identified. IMPRESSION: 1. No evidence of an acute intracranial process. 2. Evidence of mild to moderate chronic microangiopathic cerebral white matter change. 3. Mild to moderate diffuse cerebral volume loss, likely age-related. 4. Intracranial calcific atherosclerotic disease involving the internal carotid arteries and vertebr al arteries bilaterally. RPTAT: HRC Physician Chelsea Date Time Electronically viewed and signed by Physician Chelsea on 12/27/2016 18:20 /
[2016-12-27] MEDS ORDERED: HYDROmorphONE 1 MG/ML SYG IV STA (18:51)
[2016-12-27 18:52] VITALS: BP 118/57; PULSE 82; RESP 18; TEMP 98.1
[2016-12-27] MEDS ORDERED: ACET325T33 PO (20:37)
--- NOTE | 2016-12-27 21:00 | ERD ---
ER Documentation Chief Complaint Chief Complaint gayle R102 from home, [place] X2 WKS HPI Patient is a 71-year-old female with past medical history of chronic pain, osteoporosis, rheumatoid arthritis presenting to the emergency department with complaints of intermittent headache for 1 week. It is localized to her left occipital area. She describes the pain as a stabbing feeling. She did have one episode of vomiting 2 days ago. She denies unilateral weakness, fevers, urinary symptoms, dizziness, or other symptoms currently. ROS All systems reviewed and are negative except as per history of present illness. Medications Home Meds Active Scripts Acetaminophen* (Tylenol*) 325 Mg Tablet, 2 TAB PO Q6 Y for PAIN AND OR ELEVATED TEMP, #20 TAB Prov:LUIS MORA PA-C 12/27/16 Tramadol HCl (Tramadol HCl) 50 Mg Tablet, 50 MG PO Q8H Y for PAIN LEVEL 6-10, # 60 TAB Prov:SHELBI HOLLINGSWORTH 07/21/16 Salmeterol Xinaf/Fluticasone* (Advair*) 250-50 Diskus Inhaler, 1 INH INH BID, # 1 INHALER 3 Refills Prov:SHELBI HOLLINGSWORTH 07/21/16 Methylprednisolone* (Medrol* DOSE PACK) 4 Mg/Dose-Pack Tab.ds.pk, 4 MG PO . DIRECTED, #1 PACKET Prov:SHELBI HOLLINGSWORTH 07/21/16 Tiotropium [place]* (Spiriva*) 18 Mcg Cap.w.dev, 1 INH INH DAILY, #1 INHALER 3 Refills Prov:SHELBI HOLLINGSWROTH 07/21/16 Ipratropium-Albuterol (Ipratropium-Albuterol) 0.5-3 Mg/3 Ml Ampul.neb, 3 ML HHN Q4H RESP THERAPY Y for SHORTNESS OF BREATH, #90 3 Refills Prov:SHELBI HOLLINGSWORTH 07/21/16 Reported Medications Ibuprofen* (Ibuprofen*) 600 Mg Tablet, 600 MG PO Q8 Y for PAIN, TAB 07/20/16 Ondansetron Hcl* (Ondansetron Hcl*) 4 Mg Tablet, 4 MG PO Q6H Y for NAUSEA AND/ OR VOMITING, TAB 07/20/16 Melatonin (Melatin) 3 Mg Tablet, 6 MG PO QHS, TAB 07/20/16 Citalopram Hydrobromide* (Citalopram Hydrobromide*) 20 Mg Tablet, 20 MG PO DAILY , #30 TAB 07/20/16 Pantoprazole* (Pantoprazole*) 40 Mg Tablet.dr, 40 MG PO AC BREAKFAST, TAB 07/20/16 Docusate Sodium* (Colace*) 100 Mg Capsule, 100 MG PO BID, #60 CAP 07/20/16 Lactobacillus Acidophilus* (Lactinex*) 1 Tab Chew, 2 TAB PO BID, TAB 07/20/16 Levothyroxine Sodium* (Levothyroxine Sodium*) 88 Mcg Tablet, 88 MCG PO BEFORE BREAKFAST, #30 TAB 07/20/16 Trazodone Hcl* (Trazodone Hcl*) 50 Mg Tablet, 50 MG PO QHS, #30 TAB 07/20/16 Bisacodyl* (Dulcolax*) 5 Mg Tablet.dr, 10 MG PO DAILY Y for CONSTIPATION, TAB 07/20/16 Acetaminophen* (Tylenol*) 500 Mg Tab, 500 MG PO Q4H Y for MILD PAIN LEVEL 1-3, TAB 07/20/16 Allergies Allergies: Coded Allergies: No Known Drug Allergy (Verified Allergy, Unknown, 02/13/10) PMhx/Soc History of Surgery: Yes Anesthesia Reaction: No Hx Neurological Disorder: No Hx Respiratory Disorders: Yes Hx Cardiac Disorders: Yes Hx Psychiatric Problems: No Hx Miscellaneous Medical Probl: Yes (Thyroid) Hx Alcohol Use: No Hx Substance Use: No Hx Tobacco Use: No Smoking Status: Former smoker Physical Exam Vitals Vital Signs Date Time Temp Pulse Resp B/P Pulse Ox O2 Delivery O2 Flow Rate FiO2 12/27/16 18:52 98.1 82 18 118/57 97 Room Air 12/27/16 13:56 98.4 101 20 112/67 96 Physical Exam Const: Nontoxic, well-appearing female resting in the [place] in no acute distress. Head: Atraumatic Eyes: Normal Conjunctiva ENT: Normal External Ears, Nose and Mouth. Neck: Full range of motion..~ No meningismus. Resp: Clear to auscultation bilaterally Cardio: Regular rate and rhythm, no murmurs Abd: Soft, non tender, non distended. Normal bowel sounds Skin: No petechiae or rashes Back: No midline or flank tenderness Ext: No cyanosis, or edema. Cranial nerves intact. Strength and sensation intact in bilateral upper and lower extremities. Neur: Awake and alert Psych: Normal Mood and Affect Result Diagram: 12/27/16 1600 12/27/16 1600 Results 24 hrs Laboratory Tests Test 12/27/16 16:00 White Blood Count 11.410^3/ul Red Blood Count 5.5210^6/ul Hemoglobin 15.8g/dl Hematocrit 47.8% Mean Corpuscular Volume 86.6fl Mean Corpuscular Hemoglobin 28.6pg Mean Corpuscular Hemoglobin Concent 33.1g/dl Red Cell Distribution Width 18.2% Platelet Count 86991^3/UL Mean Platelet Volume 8.9fl Neutrophils % 62.8% Lymphocytes % 26.2% Monocytes % 9.6% Eosinophils % 0.6% Basophils % 0.4% Nucleated Red Blood Cells % 0.0/100WBC Neutrophils # 7.210^3/ul Lymphocytes # 3.010^3/ul Monocytes # 1.110^3/ul Eosinophils # 0.110^3/ul Basophils # 0.110^3/ul Nucleated Red Blood Cells # 0.010^3/ul Prothrombin Time 13.4Sec Prothrombin Time Ratio 1.0 INR International Normalized Ratio 1.02 Activated Partial Thromboplast Time 28.5Sec Sodium Level 138mmol/L Potassium Level 4.2mmol/L Chloride Level 101mmol/L Carbon Dioxide Level 27mmol/L Anion Gap 14 Blood Urea Nitrogen 29mg/dl Creatinine 0.91mg/dl Glucose Level 83mg/dl Calcium Level 10.3mg/dl Current Medications Medications (Trade) Dose Ordered Sig/Viraj Route PRN Reason Start Time Stop Time Status Last Admin Dose Admin Sodium Chloride (NS) 500 ml @ 500 mls/hr Q1H STAT IV 12/27/16 16:25 12/27/16 17:24 DC 12/27/16 17:06 Metoclopramide HCl (Reglan) 10 mg ONCE STAT IV 12/27/16 16:25 12/27/16 16:29 DC 12/27/16 17:06 Morphine Sulfate (morphine) 4 mg ONCE STAT IV 12/27/16 16:25 12/27/16 16:29 DC 12/27/16 17:06 Ketorolac Tromethamine (Toradol) 30 mg ONCE STAT IV 12/27/16 16:25 12/27/16 16:29 DC 12/27/16 17:06 Hydromorphone HCl (Dilaudid) 1 mg ONCE STAT IV 12/27/16 18:51 12/27/16 18:52 DC 12/27/16 18:58 Procedures/MDM 71-year-old female presents to the emergency department with complaints of headache. The patient does have a history of chronic pain and on review of her old records, she has been admitted here before. She states that in the past and she was admitted she continued to have pain even after being given morphine and Dilaudid. The patient was placed on a stretcher, IV line established, IV fluids, IV morphine, IV IV Reglan, IV Toradol given, on reevaluation patient was still complaining of pain. I gave her 1 mg IV Dilaudid and she was feeling improved. Review of CBC shows mild leukocytosis at 11.4, this is likely reactive in nature due to her pain. There were no signs of anemia. Review of chemistry panel shows slightly elevated BUN at 29, however there is no elevation of creatinine. The remainder of the chemistry panel was negative for acute abnormalities. CT brain was obtained due to the patient's complaint of headache for 1 week, there is no evidence of an acute intracranial process. The patient's neuro symptoms stabilized in the department and she was stable for discharge with outpatient treatment. Upon review of the patient's [facility] CURES report, she had recent fills of excessive amounts of tramadol and [place] and therefore I did not feel comfortable sending her home with a prescription for narcotic pain medication, instead I did give her a prescription for Tylenol. She was advised to follow-up with her primary care physician or a pain management physician for further management of her chronic pain. She was advised to return immediately for any new or worsening symptoms. Medical decision making shared with the patient and she was in agreement. PROCEDURE: Noncontrast CT Head. CLINICAL INDICATION: Headache TECHNIQUE: Noncontrast CT of the head was obtained. The administered radiation dose was CTDI vol = 43.2 mGy, DLP = 846.97 mGy-cm. One or more of the following dose reduction techniques were used: Automated exposure control, Adjustment of the mA and/or kV according to patient size, or Use of iterative reconstruction technique. COMPARISON: There are no similar studies submitted for comparison. FINDINGS: There is no acute intracranial hemorrhage, midline shift, or mass effect. No extra-axial collection is seen. The cerebral helton-white matter differentiation appears preserved. Patchy and confluent low attenuation in the periventricular, deep, and subcortical cerebral white matter is nonspecific, but suggestive of mild to moderate chronic microvascular ischemic white matter change per bilateral symmetric basal ganglia calcifications are noted, nonspecific. There is mild to moderate diffuse cerebral volume loss with compensatory diffuse cerebral sulcal and ventricular enlargement. The basal cisterns are preserved. There is intracranial calcific atherosclerotic disease involving the internal carotid arteries and vertebral arteries bilaterally. There is mild diffuse cerebellar volume loss. The brainstem and cerebellum are otherwise grossly unremarkable, although suboptimally evaluated with CT secondary to beam- hardening artifact. The visualized paranasal sinuses and mastoid air cells are clear. No acute fracture or suspicious osseous lesion is identified. IMPRESSION: 1. No evidence of an acute intracranial process. 2. Evidence of mild to moderate chronic microangiopathic cerebral white matter change. 3. Mild to moderate diffuse cerebral volume loss, likely age-related. 4. Intracranial calcific atherosclerotic disease involving the internal carotid arteries and vertebral arteries bilaterally. RPTAT: HRC Physician Chelsea Date Time Electronically viewed and signed by Physician Chelsea on 12/27/2016 18: 20 Departure Diagnosis: Primary Impression: Headache Headache type: unspecified Headache chronicity pattern: unspecified pattern Intractability: not intractable Qualified Code: R51 - Nonintractable headache, unspecified chronicity pattern, unspecified headache type Condition: Fair Patient Instructions: Self-Care for Headaches Referrals: COMMUNITY CLINICS YOU HAVE RECEIVED A MEDICAL SCREENING EXAM AND THE RESULTS INDICATE THAT YOU DO NOT HAVE A CONDITION THAT REQUIRES URGENT TREATMENT IN THE EMERGENCY DEPARTMENT. FURTHER EVALUATION AND TREATMENT OF YOUR CONDITION CAN WAIT UNTIL YOU ARE SEEN IN YOUR DOCTORS OFFICE WITHIN THE NEXT 1-2 DAYS. IT IS YOUR RESPONSIBILITY TO MAKE AN APPOINTMENT FOR FOLOW-UP CARE. IF YOU HAVE A PRIMARY DOCTOR --you should call your primary doctor and schedule an appointment IF YOU DO NOT HAVE A PRIMARY DOCTOR YOU CAN CALL OUR PHYSICIAN REFERRAL HOTLINE AT IF YOU CAN NOT AFFORD TO SEE A PHYSICIAN YOU CAN CHOSE FROM THE FOLLOWING [facility] [address] [facility] [address] [facility] [address] [facility] [address] [facility] [address] [facility]. [facility] [address] Additional Instructions: Follow up with your PCP within the next 1-3 days for a repeat evaluation. If you require a referral to a specialist, your Primary Care Provider may be able to provide this for you. In most patient cases, a referral is not required. If you have further questions regarding this matter, please ask your Primary Care Provider. Return the the emergency department immediately if symptoms worsen or change. If you have any questions regarding medications, ask your pharmacist or us before you leave. If any adverse reactions, occur while taking your medications, discontinue the treatment and return to the emergency department immediately. If any new or worsening symptoms, uncontrolled fevers, or other unexplained symptoms occur, return to the emergency department immediately. Take your medications as directed, and complete the entire course of treatment. LUIS MORA PA-C Dec 27, 2016 21:00
--- NOTE | 2016-12-27 21:00 | ERD ---
ER Documentation Chief Complaint Chief Complaint gayle R102 from home, PETERSON X2 WKS HPI Patient is a 71-year-old female with past medical history of chronic pain, osteoporosis, rheumatoid arthritis presenting to the emergency department with complaints of intermittent headache for 1 week. It is localized to her left occipital area. She describes the pain as a stabbing feeling. She did have one episode of vomiting 2 days ago. She denies unilateral weakness, fevers, urinary symptoms, dizziness, or other symptoms currently. ROS All systems reviewed and are negative except as per history of present illness. Medications Home Meds Active Scripts Acetaminophen* (Tylenol*) 325 Mg Tablet, 2 TAB PO Q6 Y for PAIN AND OR ELEVATED TEMP, #20 TAB Prov:LUIS MORA PA-C 12/27/16 Tramadol HCl (Tramadol HCl) 50 Mg Tablet, 50 MG PO Q8H Y for PAIN LEVEL 6-10, # 60 TAB Prov:SHELBI HOLLINGSWORTH 07/21/16 Salmeterol Xinaf/Fluticasone* (Advair*) 250-50 Diskus Inhaler, 1 INH INH BID, # 1 INHALER 3 Refills Prov:SHELBI HOLLINGSWORTH 07/21/16 Methylprednisolone* (Medrol* DOSE PACK) 4 Mg/Dose-Pack Tab.ds.pk, 4 MG PO . DIRECTED, #1 PACKET Prov:SHELBI HOLLINGSWORTH 07/21/16 Tiotropium Bernard* (Spiriva*) 18 Mcg Cap.w.dev, 1 INH INH DAILY, #1 INHALER 3 Refills Prov:SHELBI HOLLINGSWORTH 07/21/16 Ipratropium-Albuterol (Ipratropium-Albuterol) 0.5-3 Mg/3 Ml Ampul.neb, 3 ML HHN Q4H RESP THERAPY Y for SHORTNESS OF BREATH, #90 3 Refills Prov:SHELBI HOLLINGSWORTH 07/21/16 Reported Medications Ibuprofen* (Ibuprofen*) 600 Mg Tablet, 600 MG PO Q8 Y for PAIN, TAB 07/20/16 Ondansetron Hcl* (Ondansetron Hcl*) 4 Mg Tablet, 4 MG PO Q6H Y for NAUSEA AND/ OR VOMITING, TAB 07/20/16 Melatonin (Melatin) 3 Mg Tablet, 6 MG PO QHS, TAB 07/20/16 Citalopram Hydrobromide* (Citalopram Hydrobromide*) 20 Mg Tablet, 20 MG PO DAILY , #30 TAB 07/20/16 Pantoprazole* (Pantoprazole*) 40 Mg Tablet.dr, 40 MG PO AC BREAKFAST, TAB 07/20/16 Docusate Sodium* (Colace*) 100 Mg Capsule, 100 MG PO BID, #60 CAP 07/20/16 Lactobacillus Acidophilus* (Lactinex*) 1 Tab Chew, 2 TAB PO BID, TAB 07/20/16 Levothyroxine Sodium* (Levothyroxine Sodium*) 88 Mcg Tablet, 88 MCG PO BEFORE BREAKFAST, #30 TAB 07/20/16 Trazodone Hcl* (Trazodone Hcl*) 50 Mg Tablet, 50 MG PO QHS, #30 TAB 07/20/16 Bisacodyl* (Dulcolax*) 5 Mg Tablet.dr, 10 MG PO DAILY Y for CONSTIPATION, TAB 07/20/16 Acetaminophen* (Tylenol*) 500 Mg Tab, 500 MG PO Q4H Y for MILD PAIN LEVEL 1-3, TAB 07/20/16 Allergies Allergies: Coded Allergies: No Known Drug Allergy (Verified Allergy, Unknown, 02/13/10) PMhx/Soc History of Surgery: Yes Anesthesia Reaction: No Hx Neurological Disorder: No Hx Respiratory Disorders: Yes Hx Cardiac Disorders: Yes Hx Psychiatric Problems: No Hx Miscellaneous Medical Probl: Yes (Thyroid) Hx Alcohol Use: No Hx Substance Use: No Hx Tobacco Use: No Smoking Status: Former smoker Physical Exam Vitals Vital Signs Date Time Temp Pulse Resp B/P Pulse Ox O2 Delivery O2 Flow Rate FiO2 12/27/16 18:52 98.1 82 18 118/57 97 Room Air 12/27/16 13:56 98.4 101 20 112/67 96 Physical Exam Const: Nontoxic, well-appearing female resting in the [place] in no acute distress. Head: Atraumatic Eyes: Normal Conjunctiva ENT: Normal External Ears, Nose and Mouth. Neck: Full range of motion..~ No meningismus. Resp: Clear to auscultation bilaterally Cardio: Regular rate and rhythm, no murmurs Abd: Soft, non tender, non distended. Normal bowel sounds Skin: No petechiae or rashes Back: No midline or flank tenderness Ext: No cyanosis, or edema. Cranial nerves intact. Strength and sensation intact in bilateral upper and lower extremities. Neur: Awake and alert Psych: Normal Mood and Affect Result Diagram: 12/27/16 1600 12/27/16 1600 Results 24 hrs Laboratory Tests Test 12/27/16 16:00 White Blood Count 11.410^3/ul Red Blood Count 5.5210^6/ul Hemoglobin 15.8g/dl Hematocrit 47.8% Mean Corpuscular Volume 86.6fl Mean Corpuscular Hemoglobin 28.6pg Mean Corpuscular Hemoglobin Concent 33.1g/dl Red Cell Distribution Width 18.2% Platelet Count 28513^3/UL Mean Platelet Volume 8.9fl Neutrophils % 62.8% Lymphocytes % 26.2% Monocytes % 9.6% Eosinophils % 0.6% Basophils % 0.4% Nucleated Red Blood Cells % 0.0/100WBC Neutrophils # 7.210^3/ul Lymphocytes # 3.010^3/ul Monocytes # 1.110^3/ul Eosinophils # 0.110^3/ul Basophils # 0.110^3/ul Nucleated Red Blood Cells # 0.010^3/ul Prothrombin Time 13.4Sec Prothrombin Time Ratio 1.0 INR International Normalized Ratio 1.02 Activated Partial Thromboplast Time 28.5Sec Sodium Level 138mmol/L Potassium Level 4.2mmol/L Chloride Level 101mmol/L Carbon Dioxide Level 27mmol/L Anion Gap 14 Blood Urea Nitrogen 29mg/dl Creatinine 0.91mg/dl Glucose Level 83mg/dl Calcium Level 10.3mg/dl Current Medications Medications (Trade) Dose Ordered Sig/Viraj Route PRN Reason Start Time Stop Time Status Last Admin Dose Admin Sodium Chloride (NS) 500 ml @ 500 mls/hr Q1H STAT IV 12/27/16 16:25 12/27/16 17:24 DC 12/27/16 17:06 Metoclopramide HCl (Reglan) 10 mg ONCE STAT IV 12/27/16 16:25 12/27/16 16:29 DC 12/27/16 17:06 Morphine Sulfate (morphine) 4 mg ONCE STAT IV 12/27/16 16:25 12/27/16 16:29 DC 12/27/16 17:06 Ketorolac Tromethamine (Toradol) 30 mg ONCE STAT IV 12/27/16 16:25 12/27/16 16:29 DC 12/27/16 17:06 Hydromorphone HCl (Dilaudid) 1 mg ONCE STAT IV 12/27/16 18:51 12/27/16 18:52 DC 12/27/16 18:58 Procedures/MDM 71-year-old female presents to the emergency department with complaints of headache. The patient does have a history of chronic pain and on review of her old records, she has been admitted here before. She states that in the past and she was admitted she continued to have pain even after being given morphine and Dilaudid. The patient was placed on a stretcher, IV line established, IV fluids, IV morphine, IV IV Reglan, IV Toradol given, on reevaluation patient was still complaining of pain. I gave her 1 mg IV Dilaudid and she was feeling improved. Review of CBC shows mild leukocytosis at 11.4, this is likely reactive in nature due to her pain. There were no signs of anemia. Review of chemistry panel shows slightly elevated BUN at 29, however there is no elevation of creatinine. The remainder of the chemistry panel was negative for acute abnormalities. CT brain was obtained due to the patient's complaint of headache for 1 week, there is no evidence of an acute intracranial process. The patient's neuro symptoms stabilized in the department and she was stable for discharge with outpatient treatment. Upon review of the patient's DOJ CURES report, she had recent fills of excessive amounts of tramadol and Lolo and therefore I did not feel comfortable sending her home with a prescription for narcotic pain medication, instead I did give her a prescription for Tylenol. She was advised to follow-up with her primary care physician or a pain management physician for further management of her chronic pain. She was advised to return immediately for any new or worsening symptoms. Medical decision making shared with the patient and she was in agreement. PROCEDURE: Noncontrast CT Head. CLINICAL INDICATION: Headache TECHNIQUE: Noncontrast CT of the head was obtained. The administered radiation dose was CTDI vol = 43.2 mGy, DLP = 846.97 mGy-cm. One or more of the following dose reduction techniques were used: Automated exposure control, Adjustment of the mA and/or kV according to patient size, or Use of iterative reconstruction technique. COMPARISON: There are no similar studies submitted for comparison. FINDINGS: There is no acute intracranial hemorrhage, midline shift, or mass effect. No extra-axial collection is seen. The cerebral helton-white matter differentiation appears preserved. Patchy and confluent low attenuation in the periventricular, deep, and subcortical cerebral white matter is nonspecific, but suggestive of mild to moderate chronic microvascular ischemic white matter change per bilateral symmetric basal ganglia calcifications are noted, nonspecific. There is mild to moderate diffuse cerebral volume loss with compensatory diffuse cerebral sulcal and ventricular enlargement. The basal cisterns are preserved. There is intracranial calcific atherosclerotic disease involving the internal carotid arteries and vertebral arteries bilaterally. There is mild diffuse cerebellar volume loss. The brainstem and cerebellum are otherwise grossly unremarkable, although suboptimally evaluated with CT secondary to beam- hardening artifact. The visualized paranasal sinuses and mastoid air cells are clear. No acute fracture or suspicious osseous lesion is identified. IMPRESSION: 1. No evidence of an acute intracranial process. 2. Evidence of mild to moderate chronic microangiopathic cerebral white matter change. 3. Mild to moderate diffuse cerebral volume loss, likely age-related. 4. Intracranial calcific atherosclerotic disease involving the internal carotid arteries and vertebral arteries bilaterally. RPTAT: HRC Physician Chelsea Date Time Electronically viewed and signed by Physician Chelsea on 12/27/2016 18: 20 Departure Diagnosis: Primary Impression: Headache Headache type: unspecified Headache chronicity pattern: unspecified pattern Intractability: not intractable Qualified Code: R51 - Nonintractable headache, unspecified chronicity pattern, unspecified headache type Condition: Fair Patient Instructions: Self-Care for Headaches Referrals: COMMUNITY CLINICS YOU HAVE RECEIVED A MEDICAL SCREENING EXAM AND THE RESULTS INDICATE THAT YOU DO NOT HAVE A CONDITION THAT REQUIRES URGENT TREATMENT IN THE EMERGENCY DEPARTMENT. FURTHER EVALUATION AND TREATMENT OF YOUR CONDITION CAN WAIT UNTIL YOU ARE SEEN IN YOUR DOCTORS OFFICE WITHIN THE NEXT 1-2 DAYS. IT IS YOUR RESPONSIBILITY TO MAKE AN APPOINTMENT FOR FOLOW-UP CARE. IF YOU HAVE A PRIMARY DOCTOR --you should call your primary doctor and schedule an appointment IF YOU DO NOT HAVE A PRIMARY DOCTOR YOU CAN CALL OUR PHYSICIAN REFERRAL HOTLINE AT IF YOU CAN NOT AFFORD TO SEE A PHYSICIAN YOU CAN CHOSE FROM THE FOLLOWING [facility] [address] [facility] [address] [facility] [address] [facility] [address] [facility] [address] [facility]. [facility] [address] Additional Instructions: Follow up with your PCP within the next 1-3 days for a repeat evaluation. If you require a referral to a specialist, your Primary Care Provider may be able to provide this for you. In most patient cases, a referral is not required. If you have further questions regarding this matter, please ask your Primary Care Provider. Return the the emergency department immediately if symptoms worsen or change. If you have any questions regarding medications, ask your pharmacist or us before you leave. If any adverse reactions, occur while taking your medications, discontinue the treatment and return to the emergency department immediately. If any new or worsening symptoms, uncontrolled fevers, or other unexplained symptoms occur, return to the emergency department immediately. Take your medications as directed, and complete the entire course of treatment. LUIS MORA PA-C Dec 27, 2016 21:00
--- NOTE | 2016-12-27 21:00 | ERD ---
ER Documentation Chief Complaint Chief Complaint gayle R102 from home, PETERSON X2 WKS HPI Patient is a 71-year-old female with past medical history of chronic pain, osteoporosis, rheumatoid arthritis presenting to the emergency department with complaints of intermittent headache for 1 week. It is localized to her left occipital area. She describes the pain as a stabbing feeling. She did have one episode of vomiting 2 days ago. She denies unilateral weakness, fevers, urinary symptoms, dizziness, or other symptoms currently. ROS All systems reviewed and are negative except as per history of present illness. Medications Home Meds Active Scripts Acetaminophen* (Tylenol*) 325 Mg Tablet, 2 TAB PO Q6 Y for PAIN AND OR ELEVATED TEMP, #20 TAB Prov:LUIS MORA PA-C 12/27/16 Tramadol HCl (Tramadol HCl) 50 Mg Tablet, 50 MG PO Q8H Y for PAIN LEVEL 6-10, # 60 TAB Prov:SHELBI HOLLINGSWORTH 07/21/16 Salmeterol Xinaf/Fluticasone* (Advair*) 250-50 Diskus Inhaler, 1 INH INH BID, # 1 INHALER 3 Refills Prov:SHELBI HOLLINGSWORTH 07/21/16 Methylprednisolone* (Medrol* DOSE PACK) 4 Mg/Dose-Pack Tab.ds.pk, 4 MG PO . DIRECTED, #1 PACKET Prov:SHELBI HOLLINGSWORTH 07/21/16 Tiotropium [place]* (Spiriva*) 18 Mcg Cap.w.dev, 1 INH INH DAILY, #1 INHALER 3 Refills Prov:SHELBI HOLLINGSWORTH 07/21/16 Ipratropium-Albuterol (Ipratropium-Albuterol) 0.5-3 Mg/3 Ml Ampul.neb, 3 ML HHN Q4H RESP THERAPY Y for SHORTNESS OF BREATH, #90 3 Refills Prov:SHELBI HOLLINGSWORTH 07/21/16 Reported Medications Ibuprofen* (Ibuprofen*) 600 Mg Tablet, 600 MG PO Q8 Y for PAIN, TAB 07/20/16 Ondansetron Hcl* (Ondansetron Hcl*) 4 Mg Tablet, 4 MG PO Q6H Y for NAUSEA AND/ OR VOMITING, TAB 07/20/16 Melatonin (Melatin) 3 Mg Tablet, 6 MG PO QHS, TAB 07/20/16 Citalopram Hydrobromide* (Citalopram Hydrobromide*) 20 Mg Tablet, 20 MG PO DAILY , #30 TAB 07/20/16 Pantoprazole* (Pantoprazole*) 40 Mg Tablet.dr, 40 MG PO AC BREAKFAST, TAB 07/20/16 Docusate Sodium* (Colace*) 100 Mg Capsule, 100 MG PO BID, #60 CAP 07/20/16 Lactobacillus Acidophilus* (Lactinex*) 1 Tab Chew, 2 TAB PO BID, TAB 07/20/16 Levothyroxine Sodium* (Levothyroxine Sodium*) 88 Mcg Tablet, 88 MCG PO BEFORE BREAKFAST, #30 TAB 07/20/16 Trazodone Hcl* (Trazodone Hcl*) 50 Mg Tablet, 50 MG PO QHS, #30 TAB 07/20/16 Bisacodyl* (Dulcolax*) 5 Mg Tablet.dr, 10 MG PO DAILY Y for CONSTIPATION, TAB 07/20/16 Acetaminophen* (Tylenol*) 500 Mg Tab, 500 MG PO Q4H Y for MILD PAIN LEVEL 1-3, TAB 07/20/16 Allergies Allergies: Coded Allergies: No Known Drug Allergy (Verified Allergy, Unknown, 02/13/10) PMhx/Soc History of Surgery: Yes Anesthesia Reaction: No Hx Neurological Disorder: No Hx Respiratory Disorders: Yes Hx Cardiac Disorders: Yes Hx Psychiatric Problems: No Hx Miscellaneous Medical Probl: Yes (Thyroid) Hx Alcohol Use: No Hx Substance Use: No Hx Tobacco Use: No Smoking Status: Former smoker Physical Exam Vitals Vital Signs Date Time Temp Pulse Resp B/P Pulse Ox O2 Delivery O2 Flow Rate FiO2 12/27/16 18:52 98.1 82 18 118/57 97 Room Air 12/27/16 13:56 98.4 101 20 112/67 96 Physical Exam Const: Nontoxic, well-appearing female resting in the [place] in no acute distress. Head: Atraumatic Eyes: Normal Conjunctiva ENT: Normal External Ears, Nose and Mouth. Neck: Full range of motion..~ No meningismus. Resp: Clear to auscultation bilaterally Cardio: Regular rate and rhythm, no murmurs Abd: Soft, non tender, non distended. Normal bowel sounds Skin: No petechiae or rashes Back: No midline or flank tenderness Ext: No cyanosis, or edema. Cranial nerves intact. Strength and sensation intact in bilateral upper and lower extremities. Neur: Awake and alert Psych: Normal Mood and Affect Result Diagram: 12/27/16 1600 12/27/16 1600 Results 24 hrs Laboratory Tests Test 12/27/16 16:00 White Blood Count 11.410^3/ul Red Blood Count 5.5210^6/ul Hemoglobin 15.8g/dl Hematocrit 47.8% Mean Corpuscular Volume 86.6fl Mean Corpuscular Hemoglobin 28.6pg Mean Corpuscular Hemoglobin Concent 33.1g/dl Red Cell Distribution Width 18.2% Platelet Count 16258^3/UL Mean Platelet Volume 8.9fl Neutrophils % 62.8% Lymphocytes % 26.2% Monocytes % 9.6% Eosinophils % 0.6% Basophils % 0.4% Nucleated Red Blood Cells % 0.0/100WBC Neutrophils # 7.210^3/ul Lymphocytes # 3.010^3/ul Monocytes # 1.110^3/ul Eosinophils # 0.110^3/ul Basophils # 0.110^3/ul Nucleated Red Blood Cells # 0.010^3/ul Prothrombin Time 13.4Sec Prothrombin Time Ratio 1.0 INR International Normalized Ratio 1.02 Activated Partial Thromboplast Time 28.5Sec Sodium Level 138mmol/L Potassium Level 4.2mmol/L Chloride Level 101mmol/L Carbon Dioxide Level 27mmol/L Anion Gap 14 Blood Urea Nitrogen 29mg/dl Creatinine 0.91mg/dl Glucose Level 83mg/dl Calcium Level 10.3mg/dl Current Medications Medications (Trade) Dose Ordered Sig/Viraj Route PRN Reason Start Time Stop Time Status Last Admin Dose Admin Sodium Chloride (NS) 500 ml @ 500 mls/hr Q1H STAT IV 12/27/16 16:25 12/27/16 17:24 DC 12/27/16 17:06 Metoclopramide HCl (Reglan) 10 mg ONCE STAT IV 12/27/16 16:25 12/27/16 16:29 DC 12/27/16 17:06 Morphine Sulfate (morphine) 4 mg ONCE STAT IV 12/27/16 16:25 12/27/16 16:29 DC 12/27/16 17:06 Ketorolac Tromethamine (Toradol) 30 mg ONCE STAT IV 12/27/16 16:25 12/27/16 16:29 DC 12/27/16 17:06 Hydromorphone HCl (Dilaudid) 1 mg ONCE STAT IV 12/27/16 18:51 12/27/16 18:52 DC 12/27/16 18:58 Procedures/MDM 71-year-old female presents to the emergency department with complaints of headache. The patient does have a history of chronic pain and on review of her old records, she has been admitted here before. She states that in the past and she was admitted she continued to have pain even after being given morphine and Dilaudid. The patient was placed on a stretcher, IV line established, IV fluids, IV morphine, IV IV Reglan, IV Toradol given, on reevaluation patient was still complaining of pain. I gave her 1 mg IV Dilaudid and she was feeling improved. Review of CBC shows mild leukocytosis at 11.4, this is likely reactive in nature due to her pain. There were no signs of anemia. Review of chemistry panel shows slightly elevated BUN at 29, however there is no elevation of creatinine. The remainder of the chemistry panel was negative for acute abnormalities. CT brain was obtained due to the patient's complaint of headache for 1 week, there is no evidence of an acute intracranial process. The patient's neuro symptoms stabilized in the department and she was stable for discharge with outpatient treatment. Upon review of the patient's DOJ CURES report, she had recent fills of excessive amounts of tramadol and [place] and therefore I did not feel comfortable sending her home with a prescription for narcotic pain medication, instead I did give her a prescription for Tylenol. She was advised to follow-up with her primary care physician or a pain management physician for further management of her chronic pain. She was advised to return immediately for any new or worsening symptoms. Medical decision making shared with the patient and she was in agreement. PROCEDURE: Noncontrast CT Head. CLINICAL INDICATION: Headache TECHNIQUE: Noncontrast CT of the head was obtained. The administered radiation dose was CTDI vol = 43.2 mGy, DLP = 846.97 mGy-cm. One or more of the following dose reduction techniques were used: Automated exposure control, Adjustment of the mA and/or kV according to patient size, or Use of iterative reconstruction technique. COMPARISON: There are no similar studies submitted for comparison. FINDINGS: There is no acute intracranial hemorrhage, midline shift, or mass effect. No extra-axial collection is seen. The cerebral helton-white matter differentiation appears preserved. Patchy and confluent low attenuation in the periventricular, deep, and subcortical cerebral white matter is nonspecific, but suggestive of mild to moderate chronic microvascular ischemic white matter change per bilateral symmetric basal ganglia calcifications are noted, nonspecific. There is mild to moderate diffuse cerebral volume loss with compensatory diffuse cerebral sulcal and ventricular enlargement. The basal cisterns are preserved. There is intracranial calcific atherosclerotic disease involving the internal carotid arteries and vertebral arteries bilaterally. There is mild diffuse cerebellar volume loss. The brainstem and cerebellum are otherwise grossly unremarkable, although suboptimally evaluated with CT secondary to beam- hardening artifact. The visualized paranasal sinuses and mastoid air cells are clear. No acute fracture or suspicious osseous lesion is identified. IMPRESSION: 1. No evidence of an acute intracranial process. 2. Evidence of mild to moderate chronic microangiopathic cerebral white matter change. 3. Mild to moderate diffuse cerebral volume loss, likely age-related. 4. Intracranial calcific atherosclerotic disease involving the internal carotid arteries and vertebral arteries bilaterally. RPTAT: HRC Physician Chelsea Date Time Electronically viewed and signed by Physician Chelsea on 12/27/2016 18: 20 Departure Diagnosis: Primary Impression: Headache Headache type: unspecified Headache chronicity pattern: unspecified pattern Intractability: not intractable Qualified Code: R51 - Nonintractable headache, unspecified chronicity pattern, unspecified headache type Condition: Fair Patient Instructions: Self-Care for Headaches Referrals: COMMUNITY CLINICS YOU HAVE RECEIVED A MEDICAL SCREENING EXAM AND THE RESULTS INDICATE THAT YOU DO NOT HAVE A CONDITION THAT REQUIRES URGENT TREATMENT IN THE EMERGENCY DEPARTMENT. FURTHER EVALUATION AND TREATMENT OF YOUR CONDITION CAN WAIT UNTIL YOU ARE SEEN IN YOUR DOCTORS OFFICE WITHIN THE NEXT 1-2 DAYS. IT IS YOUR RESPONSIBILITY TO MAKE AN APPOINTMENT FOR FOLOW-UP CARE. IF YOU HAVE A PRIMARY DOCTOR --you should call your primary doctor and schedule an appointment IF YOU DO NOT HAVE A PRIMARY DOCTOR YOU CAN CALL OUR PHYSICIAN REFERRAL HOTLINE AT IF YOU CAN NOT AFFORD TO SEE A PHYSICIAN YOU CAN CHOSE FROM THE FOLLOWING [facility] [address] [facility] [address] [facility] [address] [facility] [address] [facility] [address] [facility]. [facility] [address] Additional Instructions: Follow up with your PCP within the next 1-3 days for a repeat evaluation. If you require a referral to a specialist, your Primary Care Provider may be able to provide this for you. In most patient cases, a referral is not required. If you have further questions regarding this matter, please ask your Primary Care Provider. Return the the emergency department immediately if symptoms worsen or change. If you have any questions regarding medications, ask your pharmacist or us before you leave. If any adverse reactions, occur while taking your medications, discontinue the treatment and return to the emergency department immediately. If any new or worsening symptoms, uncontrolled fevers, or other unexplained symptoms occur, return to the emergency department immediately. Take your medications as directed, and complete the entire course of treatment. LUIS MORA PA-C Dec 27, 2016 21:00
== END 2016-12-27 22:55 | disposition home or self-care (01) ==
LOC: FTE 13:49
DX: R51 Headache (principal); Z87.891 Personal history of nicotine dependence
CPT/HCPCS: 36415; 70450; 80048; 85025; 85610; 85730; 96374; 96375; 99285; J1170; J1885; J2270; J2765; J7040

== ENCOUNTER 2017-01-10 14:37 | Emergency (ER) | payer OTHER ==
[~2017-01-10] VITALS: Ht 170.2 cm; Wt 59.1 kg
[~2017-01-10 14:37] MED LIST changes: +ACET325T33 PO
[2017-01-10 15:00] VITALS: Ht 170.2 cm; Wt 59.1 kg
[2017-01-10] MEDS ORDERED: morphine 4 MG/ML VIAL IV STA (15:21)
[2017-01-10] MEDS ORDERED: SOD CHLORIDE 0.9% 1,000 ML IV STA (15:21)
[2017-01-10] MEDS ORDERED: ONDANSETRON 4 MG INJ IV STA (15:21)
--- NOTE | 2017-01-10 15:46 | ERD ---
ER Documentation Chief Complaint Chief Complaint Abdominal pain and diarrhea HPI This is a 71-year-old female who presents from assisted living facility because of abdominal pain and diarrhea. The patient notes at least 4 days of symptoms of loose watery stools. She denies any blood in the stool, no nausea or vomiting. She does describe mild suprapubic abdominal cramping with dysuria for approximately 3 weeks. No fevers or chills, no recent antibiotics. ROS All systems reviewed and are negative except as per history of present illness. Medications Home Meds Active Scripts Cephalexin* (Keflex*) 500 Mg Capsule, 500 MG PO BID for 7 Days, CAP Prov:RONALD MARTINS MD 01/10/17 Reported Medications Tiotropium Br/Olodaterol HCl (Stiolto Respimat Inhal [place]) 4 Gm Mist.inhal, 2 PUFF INHALATION DAILY, #1 INHALER 01/10/17 Nystatin* (Nystatin* Oint) 15 Gm Oint, 1 APPLIC TOP BID, #1 TUB 01/10/17 Quetiapine Fumarate* (Seroquel*) 25 Mg Tablet, 25 MG PO HS, #30 TAB 01/10/17 Sertraline Hcl* (Zoloft*) 50 Mg Tablet, 50 MG PO DAILY, #30 TAB 01/10/17 Terbinafine* (Lamisil*) 250 Mg Tablet, 250 MG PO DAILY, TAB 01/10/17 Hydrocodone/Acetaminophen ([place] 10-325 Tablet) 1 Each Tablet, 1 EACH PO Q8, TAB 01/10/17 Suvorexant (Belsomra) 10 Mg Tablet, 10 MG PO QHS, TAB 01/10/17 Trazodone Hcl* (Trazodone Hcl*) 100 Mg Tablet, 100 MG PO QHS, #30 TAB 01/10/17 Rosuvastatin Calcium* (Crestor*) 20 Mg Tablet, 20 MG PO QHS, #30 TAB 01/10/17 Ondansetron Hcl* (Ondansetron Hcl*) 4 Mg Tablet, 4 MG PO Q6H Y for NAUSEA AND/ OR VOMITING, TAB 07/20/16 Levothyroxine Sodium* (Levothyroxine Sodium*) 88 Mcg Tablet, 88 MCG PO BEFORE BREAKFAST, #30 TAB 07/20/16 Discontinued Reported Medications Ibuprofen* (Ibuprofen*) 600 Mg Tablet, 600 MG PO Q8 Y for PAIN, TAB 07/20/16 Melatonin (Melatin) 3 Mg Tablet, 6 MG PO QHS, TAB 07/20/16 Citalopram Hydrobromide* (Citalopram Hydrobromide*) 20 Mg Tablet, 20 MG PO DAILY , #30 TAB 07/20/16 Pantoprazole* (Pantoprazole*) 40 Mg Tablet.dr, 40 MG PO AC BREAKFAST, TAB 07/20/16 Docusate Sodium* (Colace*) 100 Mg Capsule, 100 MG PO BID, #60 CAP 07/20/16 Lactobacillus Acidophilus* (Lactinex*) 1 Tab Chew, 2 TAB PO BID, TAB 07/20/16 Trazodone Hcl* (Trazodone Hcl*) 50 Mg Tablet, 50 MG PO QHS, #30 TAB 07/20/16 Bisacodyl* (Dulcolax*) 5 Mg Tablet.dr, 10 MG PO DAILY Y for CONSTIPATION, TAB 07/20/16 Acetaminophen* (Tylenol*) 500 Mg Tab, 500 MG PO Q4H Y for MILD PAIN LEVEL 1-3, TAB 07/20/16 Allergies Allergies: Coded Allergies: No Known Drug Allergy (Verified Allergy, Unknown, 02/13/10) PMhx/Soc History of Surgery: Yes Anesthesia Reaction: No Hx Neurological Disorder: No Hx Respiratory Disorders: Yes Hx Cardiac Disorders: Yes Hx Psychiatric Problems: No Hx Miscellaneous Medical Probl: Yes (Thyroid) Hx Alcohol Use: No Hx Substance Use: No Hx Tobacco Use: No FmHx Family History: No diabetes Physical Exam Vitals Vital Signs Date Time Temp Pulse Resp B/P Pulse Ox O2 Delivery O2 Flow Rate FiO2 01/10/17 15:00 99.2 88 18 107/58 96 Physical Exam General: Well developed, well nourished, no acute distress Head: Normocephalic, atraumatic. Eyes: Pupils equally reactive, EOM intact ENT: Moist mucous membranes Neck: Supple, no lymphadenopathy Respiratory: Lungs clear bilaterally, no distress Cardiovascular: RRR, no murmurs, rubs, or gallops Abdominal: Soft, mild diffuse and inconsistent abdominal tenderness without pulsatile mass, non-distended, no peritoneal signs : Deferred MSK: No edema, no unilateral swelling, 5/5 strength Neurologic: Alert and oriented, moving all extremities, normal speech, no focal weakness, no cerebellar signs Skin: Dry area under the lip on the lower face consistent with eczema Psych: Normal mood Result Diagram: 01/10/17 1530 01/10/17 1530 Results 24 hrs Laboratory Tests Test 01/10/17 15:30 White Blood Count 8.010^3/ul Red Blood Count 4.9210^6/ul Hemoglobin 14.0g/dl Hematocrit 42.5% Mean Corpuscular Volume 86.4fl Mean Corpuscular Hemoglobin 28.5pg Mean Corpuscular Hemoglobin Concent 32.9g/dl Red Cell Distribution Width 16.9% Platelet Count 64780^3/UL Mean Platelet Volume 10.0fl Neutrophils % 46.1% Lymphocytes % 37.4% Monocytes % 13.7% Eosinophils % 2.1% Basophils % 0.6% Nucleated Red Blood Cells % 0.0/100WBC Neutrophils # 3.710^3/ul Lymphocytes # 3.010^3/ul Monocytes # 1.110^3/ul Eosinophils # 0.210^3/ul Basophils # 0.110^3/ul Nucleated Red Blood Cells # 0.010^3/ul Urine Color YELLOW Urine Clarity TURBID Urine pH 6.0 Urine Specific [place] 1.009 Urine Ketones NEGATIVEmg/dL Urine Nitrite NEGATIVEmg/dL Urine Bilirubin NEGATIVEmg/dL Urine Urobilinogen NEGATIVEmg/dL Urine Leukocyte Esterase 3+[place]/ul Urine Microscopic RBC 67/HPF Urine Microscopic WBC > 182/HPF Urine Bacteria MODERATE/HPF Urine Hemoglobin 1+mg/dL Urine Glucose NEGATIVEmg/dL Urine Total Protein NEGATIVEmg/dl Sodium Level 141mmol/L Potassium Level 3.7mmol/L Chloride Level 105mmol/L Carbon Dioxide Level 28mmol/L Anion Gap 12 Blood Urea Nitrogen 19mg/dl Creatinine 0.87mg/dl Glucose Level 90mg/dl Calcium Level 9.5mg/dl Total Bilirubin 0.1mg/dl Direct Bilirubin 0.00mg/dl Indirect Bilirubin 0.1mg/dl Aspartate Amino Transf (AST/SGOT) 25IU/L Alanine Aminotransferase (ALT/SGPT) 32IU/L Alkaline Phosphatase 131IU/L Total Protein 7.5g/dl Albumin 3.4g/dl Globulin 4.10g/dl Albumin/Globulin Ratio 0.82 Lipase 160U/L Current Medications Medications (Trade) Dose Ordered Sig/Viraj Route PRN Reason Start Time Stop Time Status Last Admin Dose Admin Sodium Chloride (NS) 1,000 ml @ 1,000 mls/hr Q1H STAT IV 01/10/17 15:21 01/10/17 16:20 DC 01/10/17 15:34 Morphine Sulfate (morphine) 4 mg ONCE STAT IV 01/10/17 15:21 01/10/17 15:22 DC 01/10/17 15:33 Ondansetron HCl 4 mg 4 mg ONCE STAT IV 01/10/17 15:21 01/10/17 15:22 DC 01/10/17 15:31 Ceftriaxone Sodium (Rocephin) 50 ml @ 100 mls/hr ONCE ONCE IVPB 01/10/17 19:30 01/10/17 19:59 UNV Procedures/MDM EKG, MONITORS, & DIAGNOSTIC IMAGING: CT abdomen and pelvis: Indication for advanced imaging: The patient is over 65 years old with abdominal pain and diarrhea, significant risk for atypical presentation of acute intra-abdominal process Summary of radiologist interpretation: IMPRESSION: 1. Bronchial wall thickening bilaterally in the lower lobes consistent with bronchitis. 2. Status post cholecystectomy. 3. Nonobstructing bilateral renal calculi. 4. Benign left renal cyst. 5. Atherosclerosis. 6. Degenerative changes of the spine. Old compression fractures of T12 and L1. 7. Bilateral total hip arthroplasties. CT brain Indication for advanced imaging: The patient started describe a headache, CT brain to rule out mass given her age Summary of radiologist interpretation: IMPRESSION: 1. Atrophy. 2. Microangiopathic ischemic change. 3. Atherosclerosis. 4. No intracranial hemorrhage. 5. Otherwise unremarkable noncontrast CT scan of the brain. 6. No change from 12/27/2016. RPTAT: QQ LAB INTERPRETATION: No significant leukocytosis or evidence of hepatobiliary obstruction, positive UTI MEDICAL DECISION MAKING: The patient presents with diarrhea and abdominal pain. This is most likely a viral process but the patient needs further evaluation for C. difficile colitis , acute intra-abdominal process such as focal colitis. Additional evaluation for urinary tract infection would be reasonable. Lower clinical concern for bowel obstruction but possible in this age group. ER COURSE: The patient was given IV fluids. She also started to describe of a headache for several weeks if not longer. A CT brain was ordered which is negative. The patient CT abdomen and pelvis is also unrevealing. The patient does have a UTI was given ceftriaxone. Her symptoms are controlled. No diarrhea during ER course. At this point I do not believe she requires inpatient hospitalization, outpatient treatment for UTI would be appropriate. I kept the patient and/or family informed of laboratory and diagnostic imaging results throughout the emergency room course. DISPOSITION PLAN: We discussed follow up with the patient's primary care doctor within 24 to 48 hours as needed. We also discussed return to the emergency room for worsening symptoms or worsening condition. Outpatient referral: [None required] Discharge Medications: Keflex Departure Diagnosis: Primary Impression: Abdominal pain, generalized Additional Impressions: Diarrhea Diarrhea type: unspecified type Qualified Code: R19.7 - Diarrhea, unspecified type UTI (urinary tract infection) Urinary tract infection type: acute cystitis Hematuria presence: without hematuria Qualified Code: N30.00 - Acute cystitis without hematuria Condition: Stable RONALD MARTINS MD Jan 10, 2017 15:46
[2017-01-10] MEDS ORDERED: ROSU20TA PO (16:15)
[2017-01-10] MEDS ORDERED: HYDR-902 PO (16:15)
[2017-01-10] MEDS ORDERED: TERB250T46 PO (16:15)
[2017-01-10] MEDS ORDERED: TRAZ100T15 PO (16:15)
[2017-01-10] MEDS ORDERED: TIOT4MIS4 INHALATION (16:15)
[2017-01-10] MEDS ORDERED: SUVO10TA2 PO (16:15)
[2017-01-10] MEDS ORDERED: NYST15OI12 TOP (16:15)
[2017-01-10] MEDS ORDERED: SERT50TA PO (16:15)
[2017-01-10] MEDS ORDERED: QUET25TA26 PO (16:15)
--- NOTE | 2017-01-10 18:52 | RADRPT ---
PROCEDURE: CT Brain without contrast. CLINICAL INDICATION: Dizziness. TECHNIQUE: A CT of the brain without contrast was performed utilizing axial sections from the skul l base through the vertex. The patient was scanned without intravenous contrast enhancement. [place] l and coronal reformatted images were obtained using the data from the axial images. Total exam DLP is 630.20 mGy-cm. CTDIvol is 45.01 mGy. One or more of the following dose reduction techniques were used: Automated exposure control, adjustment of the mA and/or kV according to patient size, use of iterative reconstruction technique. COMPARISON: CT scan of the brain dated 12/27/2016. FINDINGS: There is normal helton-white matter differentiation. There is enlargement of the ventricles and subarachnoid spaces consistent with atrophy. There is decreased attenuation of the periventricular white matter consistent with microangiopathic ischemic change. There is no intracranial hemorrhage or space-occupying lesion. There are vascular calcifications consistent with atherosclerosis. There is no skull fracture or lytic lesion. IMPRESSION: 1. Atrophy. 2. Microangiopathic ischemic change. 3. Atherosclerosis. 4. No intracranial hemorrhage. 5. Otherwise unremarkable noncontrast CT scan of the brain. 6. No change from 12/27/2016. RPTAT: QQ .Tj Zafar MD, MD Date Time Electronically viewed and signed by .Tj Zafar MD, on 01/10/2017 16:53 .R/
--- NOTE | 2017-01-10 18:52 | RADRPT ---
PROCEDURE: CT Abdomen and Pelvis without contrast. CLINICAL INDICATION: Abdominal and pelvic pain. TECHNIQUE: CT scan of the abdomen and pelvis without contrast was performed. Coronal and sagittal reformatted images were obtained from the axial source images. Images were reviewed on a high-resolu [employer] PACS workstation. Total exam DLP is 149.38 mGy-cm. CTDIvol is 15.10 mGy. One or more of the f ollowing dose reduction techniques were used: Automated exposure control, adjustment of the mA and/o r kV according to patient size, use of iterative reconstruction technique. COMPARISON: None. FINDINGS: There is bronchial wall thickening bilaterally in the lower lobes posteriorly consistent with bronch itis. The lung bases are otherwise normal. There is no pleural effusion or pericardial effusion. The heart size is normal. The liver is normal in size and attenuation. There is no focal hepatic lesion. The gallbladder is surgically absent with clips noted in the gallbladder bed. The bile ducts are nor mal. The spleen is normal in size. There is no focal splenic lesion. Both adrenals are normal with no enlargement or mass. The pancreas is unremarkable with no mass or evidence of pancreatitis. There is no solid renal mass or hydronephrosis. There is a nonobstructing 0.2 cm calculus in the mid right kidney. There is a nonobstructing 0.7 x 0.4 cm calculus in the mid left kidney. There is a be nign 1.6 cm cyst in the mid to lower left kidney. There is no ureteral calculus on either side. The abdominal aorta is not dilated. Calcification is present in the aorta consistent with atheroscle rosis. There is no retroperitoneal lymphadenopathy or mass. There is no pelvic lymphadenopathy or mass. The bladder and distal ureters are normal. The periappendiceal region is unremarkable with no evidence of appendicitis. The bowel and mesentery are normal. There is no free fluid or free gas. There are degenerative changes of the spine. There is no acute fracture or lytic lesion. There is an old compression fracture of T12 superior endplate old compression fracture of L1 inferior endplate. There are bilateral total hip arthroplasties. IMPRESSION: 1. Bronchial wall thickening bilaterally in the lower lobes consistent with bronchitis. 2. Status post cholecystectomy. 3. Nonobstructing bilateral renal calculi. 4. Benign left renal cyst. 5. Atherosclerosis. 6. Degenerative changes of the spine. Old compression fractures of T12 and L1. 7. Bilateral total hip arthroplasties. RPTAT: QQ .Tj Zafar MD, Date Time Electronically viewed and signed by .Tj Zafar MD, on 01/10/2017 16:59 .R/
[2017-01-10] MEDS ORDERED: CEPH-443 PO (19:05)
[2017-01-10] MEDS ORDERED: CEFTRIAXONE 1 GM/50 ML (PMX) 50 ML IVPB ONE ×2 (19:23→19:30)
[2017-01-10] MEDS ORDERED: HYDROCODONE/APAP (5/325) TAB ONE (19:59)
[2017-01-11] MEDS ORDERED: morphine 4 MG/ML VIAL IV STA (04:35)
[2017-01-11 10:20] VITALS: BP 111/66; PULSE 78; RESP 16; TEMP 98.3
== END 2017-01-11 10:54 | disposition home or self-care (01) ==
LOC: E/R 14:37
DX: N30.00 Acute cystitis without hematuria (principal); R19.7 Diarrhea, unspecified
CPT/HCPCS: 36415; 70450; 74176; 80053; 81001; 83690; 85025; 87040; 96374; 96375; 96376; 99285; J0696; J2270; J2405; J7030

== ENCOUNTER 2017-01-16 12:30 | Emergency (ER) | payer OTHER ==
[~2017-01-16] VITALS: Ht 167.6 cm; Wt 58.2 kg
[~2017-01-16 12:30] MED LIST changes: -ACET325T33 PO; -ADV25050 INH; -BISA-57 PO; +CEPH-443 PO; -CITA20TA6 PO; -DOCU-144 PO; +HYDR-902 PO; -IBUP-1542 PO; -IPRA3AMP HHN; -LACTINEX PO; -MED4DP PO; -MELA3TAB51 PO; +NYST15OI12 TOP; -PANT40TA4 PO; +QUET25TA26 PO; +ROSU20TA PO; +SERT50TA PO; +SUVO10TA2 PO; +TERB250T46 PO; -TIOT18CA INH; +TIOT4MIS4 INHALATION; -TRAM50TA2 PO; +TRAZ100T15 PO; -TRAZ50TA18 PO; -TYL500 PO
[2017-01-16 12:50] VITALS: Ht 167.6 cm; Wt 58.2 kg
--- NOTE | 2017-01-16 13:10 | ERD ---
ER Documentation Chief Complaint Chief Complaint GENERALIZE MALAISE W/ RT KNEE PAIN/SWELLING X2 WEEKS HPI Patient is a 71-year-old female who presents with gradual onset, constant, progressive right knee pain for 2 weeks. She states that her left knee has also begun to hurt over the last several days. She reports swelling to the right knee. She denies fever. She denies fall or injury. The patient reports that she takes Vicodin chronically for rheumatoid arthritis. She ran out of her medication 4 days ago. She does not currently have a doctor, because she has difficulty making the trip to see him in [place]. She is in the process of finding a new doctor. She is nonambulatory at baseline and has a home caregiver. She reports 1 week of right-sided throat pain. She denies onset during eating. She denies difficulty swallowing. ROS All systems reviewed and are negative except as per history of present illness. Medications Home Meds Active Scripts Hydrocodone/Acetaminophen ([place] 5-325 Tablet) 1 Each Tablet, 1 EACH PO Q4 Y for PAIN LEVEL 6-10, #20 TAB Prov:IKE SANDS MD 01/16/17 Cephalexin* (Keflex*) 500 Mg Capsule, 500 MG PO BID for 7 Days, CAP Prov:RONALD MARTINS MD 01/10/17 Reported Medications Tiotropium Br/Olodaterol HCl (Stiolto Respimat Inhal [place]) 4 Gm Mist.inhal, 2 PUFF INHALATION DAILY, #1 INHALER 01/10/17 Nystatin* (Nystatin* Oint) 15 Gm Oint, 1 APPLIC TOP BID, #1 TUB 01/10/17 Quetiapine Fumarate* (Seroquel*) 25 Mg Tablet, 25 MG PO HS, #30 TAB 01/10/17 Sertraline Hcl* (Zoloft*) 50 Mg Tablet, 50 MG PO DAILY, #30 TAB 01/10/17 Terbinafine* (Lamisil*) 250 Mg Tablet, 250 MG PO DAILY, TAB 01/10/17 Hydrocodone/Acetaminophen ([place] 10-325 Tablet) 1 Each Tablet, 1 EACH PO Q8, TAB 01/10/17 Suvorexant (Belsomra) 10 Mg Tablet, 10 MG PO QHS, TAB 01/10/17 Trazodone Hcl* (Trazodone Hcl*) 100 Mg Tablet, 100 MG PO QHS, #30 TAB 01/10/17 Rosuvastatin Calcium* (Crestor*) 20 Mg Tablet, 20 MG PO QHS, #30 TAB 01/10/17 Ondansetron Hcl* (Ondansetron Hcl*) 4 Mg Tablet, 4 MG PO Q6H Y for NAUSEA AND/ OR VOMITING, TAB 07/20/16 Levothyroxine Sodium* (Levothyroxine Sodium*) 88 Mcg Tablet, 88 MCG PO BEFORE BREAKFAST, #30 TAB 07/20/16 Discontinued Reported Medications Ibuprofen* (Ibuprofen*) 600 Mg Tablet, 600 MG PO Q8 Y for PAIN, TAB 07/20/16 Melatonin (Melatin) 3 Mg Tablet, 6 MG PO QHS, TAB 07/20/16 Citalopram Hydrobromide* (Citalopram Hydrobromide*) 20 Mg Tablet, 20 MG PO DAILY , #30 TAB 07/20/16 Pantoprazole* (Pantoprazole*) 40 Mg Tablet.dr, 40 MG PO AC BREAKFAST, TAB 07/20/16 Docusate Sodium* (Colace*) 100 Mg Capsule, 100 MG PO BID, #60 CAP 07/20/16 Lactobacillus Acidophilus* (Lactinex*) 1 Tab Chew, 2 TAB PO BID, TAB 07/20/16 Trazodone Hcl* (Trazodone Hcl*) 50 Mg Tablet, 50 MG PO QHS, #30 TAB 07/20/16 Bisacodyl* (Dulcolax*) 5 Mg Tablet.dr, 10 MG PO DAILY Y for CONSTIPATION, TAB 07/20/16 Acetaminophen* (Tylenol*) 500 Mg Tab, 500 MG PO Q4H Y for MILD PAIN LEVEL 1-3, TAB 07/20/16 Allergies Allergies: Coded Allergies: No Known Drug Allergy (Verified Allergy, Unknown, 01/16/17) PMhx/Soc Past medical history: Rheumatoid arthritis, osteoporosis, COPD Past surgical history:Appendectomy, tubal ligation, right breast lumpectomy Social history: Denies tobacco or alcohol. History of Surgery: Yes (APPENDECTOMY, R-LUMPECTOMY, TUBAL LIGATION) Anesthesia Reaction: No Hx Neurological Disorder: No (RA) Hx Respiratory Disorders: Yes (ASTHMA, COPD) Hx Cardiac Disorders: Yes Hx Psychiatric Problems: No Hx Miscellaneous Medical Probl: Yes (Thyroid, BEDRID[place]-RA, OSTEOPOROSIS) Hx Alcohol Use: No Hx Substance Use: No Hx Tobacco Use: No FmHx Family History: No coronary disease, No diabetes Physical Exam Vitals Vital Signs Date Time Temp Pulse Resp B/P Pulse Ox O2 Delivery O2 Flow Rate FiO2 01/16/17 13:40 98.3 78 18 132/60 98 Room Air 01/16/17 12:50 98.0 81 16 115/58 95 Physical Exam Const: Alert, no acute distress Head: Atraumatic Eyes: Normal Conjunctiva, No pallor, no icterus ENT: Normal External Ears, Nose and Mouth. Clear oropharynx, no tonsillar erythema or exudate, no peritonsillar swelling, no trismus Neck: Full range of motion..~ No meningismus. No adenopathy or mass, no induration Resp: Clear to auscultation bilaterally, No wheezes, no rales Cardio: Regular rate and rhythm, no murmurs Abd: Soft, non tender, non distended. Skin: No petechiae or rashes Back: No midline or flank tenderness Ext: No cyanosis, or edema. Right knee with moderate effusion, no erythema, mild warmth, pain with range of motion Neur: Awake and alert, Cranial nerves II through XII intact bilaterally, strength and station grossly intact in 4 extremities Psych: Normal Mood and Affect Results 24 hrs Laboratory Tests Test 01/16/17 14:05 Body Fluid Type RIGHT KNEE Body Fluid Volume 6.0ml Body Fluid Color DARK YELLOW Body Fluid Appearance CLOUDY Body Fluid WBC 6496/cmm Body Fluid RBC (Auto) 4000/uL Body Fluid Polynuclear WBCs (%) 52.6% Body Fluid Mononuclear Cells % Auto 47.4% Current Medications Medications (Trade) Dose Ordered Sig/Viraj Route PRN Reason Start Time Stop Time Status Last Admin Dose Admin Bupivacaine HCl ([place] 0.5% (Mpf Ez)) 10 ml ONCE ONCE INJ 01/16/17 13:30 01/16/17 13:31 DC Procedures/MDM Arthrocentesis by me: Patient consented, sterilely draped, full prep, time out performed. Anesthesia: 1% lidocaine locally Location: Right knee, superior lateral approach Technique: 18 gauge needle aspiration Results: 25 ml of serous fluid, clear, minimal viscosity Complications: Minimal bleeding. No complications. MDM: Patient is a 71-year-old female with gradual onset and progressive swelling of bilateral knees, right greater than left. The patient has history of rheumatoid arthritis. She was found of a joint effusion without signs of septic joint. Therapeutic arthrocentesis was performed and bupivacaine was injected into the joint. The patient currently does not have a primary care physician but is chronically been on [place]. I consulted [facility], and she has not had a recent prescription. She was provided a prescription, and advised to follow-up with a PMD as soon as possible. Departure Diagnosis: Primary Impression: Joint effusion of knee Laterality: right Qualified Code: M25.461 - Effusion of right knee Additional Impression: Rheumatoid arthritis Rheumatoid arthritis location: knee Rheumatoid factor presence: unspecified presence Laterality: bilateral Qualified Code: M06.9 - Rheumatoid arthritis involving both knees, unspecified rheumatoid factor presence Condition: IKE Andino MD Jan 16, 2017 13:10
[2017-01-16] MEDS ORDERED: BUPIVACAINE 0.5% (MPF) 10 ML VIAL INJ ONE (13:30)
[2017-01-16 14:40] LABS: FLD MN% 47.4 %; FLD PMN% 52.6 %; FLD RBC 4000 /uL; FLD WBC 6496 /cmm
[2017-01-16 15:38] LABS: FLD CLARITY CLOUDY; FLD COLOR DARK YELLOW; FLD TYPE RIGHT KNEE
[2017-01-16] MEDS ORDERED: HYDR-906 PO (15:58)
[2017-01-16 17:54] VITALS: BP 106/51; PULSE 78; RESP 18; TEMP 98.8
== END 2017-01-16 17:54 | disposition home or self-care (01) ==
LOC: E/R 12:30
DX: M25.461 Effusion, right knee (principal); J44.9 Chronic obstructive pulmonary disease, unspecified
CPT/HCPCS: 87070; 89051

== ENCOUNTER 2017-01-23 21:35 | Emergency (ER) | payer OTHER ==
[~2017-01-23] VITALS: Ht 161.9 cm; Wt 58.2 kg
[~2017-01-23 21:35] MED LIST changes: +HYDR-906 PO
[2017-01-23] MEDS ORDERED: ONDANSETRON 4 MG INJ IV STA (21:40)
[2017-01-23] MEDS ORDERED: morphine 4 MG/ML VIAL IV STA (21:40)
[2017-01-23 21:44] VITALS: Ht 161.9 cm; Wt 58.2 kg
[2017-01-23 22:06] LABS: BASOPHILS % 0.5 % (0.0-2.0); EOSINOPHILS # 0.3 10^3/ul (0.0-0.5); HEMATOCRIT 38.8 % (37.0-47.0); HEMOGLOBIN 12.6 g/dl (12.0-16.0); LYMPHOCYTES # 3.9 10^3/ul (0.8-2.9); LYMPHOCYTES % 46.3 % (15.0-51.0); MEAN CORPUSCULAR HEMOGLOBIN 27.9 pg (29.0-33.0); MEAN CORPUSCULAR HGB CONC 32.5 g/dl (32.0-37.0); MEAN CORPUSCULAR VOLUME 85.8 fl (82.0-101.0); MEAN PLATELET VOLUME 8.7 fl (7.4-10.4); MONOCYTES % 11.3 % (0.0-11.0); NEUTROPHIL # 3.2 10^3/ul (1.6-7.5); NEUTROPHILS % 37.7 % (39.0-77.0); PLATELET COUNT 313 10^3/UL (140-415); RED BLOOD COUNT 4.52 10^6/ul (4.20-5.40); RED CELL DISTRIBUTION WIDTH 14.6 % (11.5-14.5); WHITE BLOOD COUNT 8.4 10^3/ul (4.8-10.8)
--- NOTE | 2017-01-23 22:25 | RADRPT ---
PROCEDURE: XR Chest. CLINICAL INDICATION: Chest pain TECHNIQUE: Single portable view of the chest was obtained COMPARISON: [facility] PORT CHEST 11/04/2008 FINDINGS: The heart and mediastinum are within normal limits. There are mild bibasilar atelectatic changes. The lungs are otherwise clear. There is no pleural effusion or pneumothorax. RPTAT: AA IMPRESSION: Mild bibasilar atelectatic changes. .Hector Davies MD, MD Date Time Electronically viewed and signed by .Hector Davies MD, on 01/23/2017 22:25 .S/
[2017-01-23 22:31] LABS: ANION GAP 10 (8-16); BLOOD UREA NITROGEN 15 mg/dl (7-20); CALCIUM 9.3 mg/dl (8.4-10.2); CARBON DIOXIDE 31 mmol/L (21-31); CHLORIDE 102 mmol/L (97-110); CREATININE 0.73 mg/dl (0.44-1.00); GLUCOSE 103 mg/dl (70-220); POTASSIUM 3.7 mmol/L (3.5-5.1); SODIUM 139 mmol/L (135-144)
[2017-01-23 22:42] LABS: TROPONIN-I < 0.012 ng/ml (0.00-0.12)
[2017-01-23] MEDS ORDERED: KETOROLAC 30 MG INJ IV STA (23:19)
--- NOTE | 2017-01-23 23:38 | ERD ---
ER Documentation Chief Complaint Chief Complaint BIBA RA102,CP radiating to left shoulder,rec'd aspirin 162 mg & 1 ntiro HPI This is a 71-year-old female history of chronic pain who presents to the emergency room with left-sided chest wall pain. She states the chest wall pain is sharp, worse to touch for approximately 24-48 hours. She states that the pain occasionally goes to her shoulder but only when moving. She denies any fevers or chills, no cough. The patient sees a pain specialist and takes chronic pain medication. She denies any calf swelling or pain. ROS All systems reviewed and are negative except as per history of present illness. Medications Home Meds Active Scripts Hydrocodone/Acetaminophen ([place] 5-325 Tablet) 1 Each Tablet, 1 EACH PO Q4 Y for PAIN LEVEL 6-10, #20 TAB Prov:IKE SANDS MD 01/16/17 Cephalexin* (Keflex*) 500 Mg Capsule, 500 MG PO BID for 7 Days, CAP Prov:RONALD MARTINS MD 01/10/17 Reported Medications Tiotropium Br/Olodaterol HCl (Stiolto Respimat Inhal [place]) 4 Gm Mist.inhal, 2 PUFF INHALATION DAILY, #1 INHALER 01/10/17 Nystatin* (Nystatin* Oint) 15 Gm Oint, 1 APPLIC TOP BID, #1 TUB 01/10/17 Quetiapine Fumarate* (Seroquel*) 25 Mg Tablet, 25 MG PO HS, #30 TAB 01/10/17 Sertraline Hcl* (Zoloft*) 50 Mg Tablet, 50 MG PO DAILY, #30 TAB 01/10/17 Terbinafine* (Lamisil*) 250 Mg Tablet, 250 MG PO DAILY, TAB 01/10/17 Hydrocodone/Acetaminophen ([place] 10-325 Tablet) 1 Each Tablet, 1 EACH PO Q8, TAB 01/10/17 Suvorexant (Belsomra) 10 Mg Tablet, 10 MG PO QHS, TAB 01/10/17 Trazodone Hcl* (Trazodone Hcl*) 100 Mg Tablet, 100 MG PO QHS, #30 TAB 01/10/17 Rosuvastatin Calcium* (Crestor*) 20 Mg Tablet, 20 MG PO QHS, #30 TAB 01/10/17 Ondansetron Hcl* (Ondansetron Hcl*) 4 Mg Tablet, 4 MG PO Q6H Y for NAUSEA AND/ OR VOMITING, TAB 07/20/16 Levothyroxine Sodium* (Levothyroxine Sodium*) 88 Mcg Tablet, 88 MCG PO BEFORE BREAKFAST, #30 TAB 07/20/16 Allergies Allergies: Coded Allergies: No Known Drug Allergy (Verified Allergy, Unknown, 01/16/17) PMhx/Soc History of Surgery: Yes (APPENDECTOMY, R-LUMPECTOMY, TUBAL LIGATION) Anesthesia Reaction: No Hx Neurological Disorder: No (RA) Hx Respiratory Disorders: Yes (ASTHMA, COPD) Hx Cardiac Disorders: Yes Hx Psychiatric Problems: No Hx Miscellaneous Medical Probl: Yes (Thyroid, BEDRIDDEN-RA, OSTEOPOROSIS) Hx Alcohol Use: No Hx Substance Use: No Hx Tobacco Use: No Smoking Status: Never smoker FmHx Family History: No diabetes Physical Exam Vitals Vital Signs Date Time Temp Pulse Resp B/P Pulse Ox O2 Delivery O2 Flow Rate FiO2 01/23/17 21:51 Nasal Cannula 2 01/23/17 21:44 98.2 73 18 102/63 95 Physical Exam General: Elderly female, cachectic Head: Normocephalic, atraumatic. Eyes: Pupils equally reactive, EOM intact ENT: Moist mucous membranes Neck: Supple, no lymphadenopathy Respiratory: Lungs clear bilaterally, no distress, very reproducible chest wall tenderness along the left anterior chest wall and sternal costal margin Cardiovascular: RRR, no murmurs, rubs, or gallops Abdominal: Soft, non-tender, non-distended, no peritoneal signs : Deferred MSK: No edema, no unilateral swelling, 5/5 strength Neurologic: Alert and oriented, moving all extremities, normal speech, no focal weakness, no cerebellar signs Skin: No rash Psych: Normal mood Result Diagram: 01/23/17219901/23/172199 Results 24 hrs Laboratory Tests Test 01/23/17 22:00 White Blood Count 8.410^3/ul Red Blood Count 4.5210^6/ul Hemoglobin 12.6g/dl Hematocrit 38.8% Mean Corpuscular Volume 85.8fl Mean Corpuscular Hemoglobin 27.9pg Mean Corpuscular Hemoglobin Concent 32.5g/dl Red Cell Distribution Width 14.6% Platelet Count 62862^3/UL Mean Platelet Volume 8.7fl Neutrophils % 37.7% Lymphocytes % 46.3% Monocytes % 11.3% Eosinophils % 4.0% Basophils % 0.5% Nucleated Red Blood Cells % 0.0/100WBC Neutrophils # 3.210^3/ul Lymphocytes # 3.910^3/ul Monocytes # 1.010^3/ul Eosinophils # 0.310^3/ul Basophils # 0.010^3/ul Nucleated Red Blood Cells # 0.010^3/ul Sodium Level 139mmol/L Potassium Level 3.7mmol/L Chloride Level 102mmol/L Carbon Dioxide Level 31mmol/L Anion Gap 10 Blood Urea Nitrogen 15mg/dl Creatinine 0.73mg/dl Glucose Level 103mg/dl Calcium Level 9.3mg/dl Troponin I < 0.012ng/ml Current Medications Medications (Trade) Dose Ordered Sig/Viraj Route PRN Reason Start Time Stop Time Status Last Admin Dose Admin Morphine Sulfate (morphine) 4 mg ONCE STAT IV 01/23/17 21:40 01/23/17 21:41 DC 01/23/17 21:50 Ondansetron HCl (Zofran Inj) 4 mg ONCE STAT IV 01/23/17 21:40 01/23/17 21:41 DC 01/23/17 21:50 Ketorolac Tromethamine (Toradol) 30 mg ONCE STAT IV 01/23/17 23:19 01/23/17 23:20 DC Procedures/MDM EKG, MONITORS, & DIAGNOSTIC IMAGING: EKG: I reviewed and interpreted a 12-lead EKG. Rhythm: Normal sinus rhythm Ectopy: None Intervals: No abnormalities ST segments: No elevations or depressions T waves: No contiguous inversions Repeat EKG: EKG: I reviewed and interpreted a 12-lead EKG. Rhythm: Normal sinus rhythm Ectopy: None Intervals: No abnormalities ST segments: No elevations or depressions T waves: No contiguous inversions Chest x-ray: I reviewed and interpreted a 1 view of the chest Mediastinum: No enlargement Cardiac silhouette: No cardiomegaly Airspace: Clear lung freeman bilaterally without evidence of pneumothorax Bones: No evidence of fracture LAB INTERPRETATION: Negative troponin times 1 repeat pending MEDICAL DECISION MAKING: The patient's history, physical exam and clinical presentation is mostly consistent with musculoskeletal etiology. The patient has a history of chronic pain. The patient has had narcotic dependence in the past. She has very reproducible symptoms. I have a much lower clinical concern for cardiac ischemia given the reproducible nature of her physical exam Based on the patient's clinical exam and history and risk factors, I have a much lower clinical concern for pulmonary embolism, acute aortic dissection, pneumothorax, pneumonia, cardiac tamponade HEART Score: 3 MACE Rate: Less than 1.7% Shared Decision Making: We had a conversation regarding risk stratification, MACE rate, and the risks, benefits, alternatives of disposition planning options. Disposition planning: I believe a serial troponin here in the emergency room would be reasonable given the patient's age but given strong concern for muscular skeletal etiology outpatient follow-up would be reasonable. ER COURSE: Was able to speak to Dr. Wilson. He reviewed the patient's record and sees that the patient was recently diagnosed with rheumatoid arthritis. He believes that the patient's pain may be related to this. The patient does see a pain specialist. He feels comfortable with a 3 hour delta troponin in the emergency room and follow-up in his office tomorrow which I believe would be extremely reasonable. He would like the patient be given Toradol here in the emergency room which has been provided. He states that he can see the patient at 3 PM at his office at [address] [place] [address] in [place]. The office phone number is [phone] This information was passed on to the patient who feels very comfortable with this plan and states that she can get a ride from her travel accommodation inspector. She has a pain medicine specialist appointment tomorrow as well. The patient's pain is improving. The patient is written for a 3 hour delta troponin around 1 AM. If negative the patient can be safely discharged home with outpatient follow-up as described above. Again, very low clinical concern for cardiac etiology in this patient with very reproducible symptoms and history of chronic pain. I kept the patient and/or family informed of laboratory and diagnostic imaging results throughout the emergency room course. DISPOSITION PLAN: Pending repeat troponin but anticipate discharge home We discussed follow up with the patient's primary care doctor within 24 to 48 hours as needed. We also discussed return to the emergency room for worsening symptoms or worsening condition. Outpatient referral: Pain specialist tomorrow, Dr. Wilson tomorrow Discharge Medications: Patient has narcotic pain medication at home Departure Diagnosis: Primary Impression: Acute chest wall pain Additional Impression: Chronic pain Chronic pain type: other chronic pain Qualified Code: G89.29 - Other chronic pain Condition: Stable Patient Instructions: Chest Wall Pain, Costochondritis Referrals: ADENIKE STOREY M.D. Additional Instructions: Dr. Storey wants to see you in his office tomorrow at 3pm. Office is a [address] [place] [address] in [facility] Office # is [phone] RONALD MARTINS MD Jan 23, 2017 23:38
[2017-01-24 05:49] VITALS: BP 111/67; PULSE 75; RESP 17
== END 2017-01-24 06:19 | disposition home or self-care (01) ==
LOC: E/R 21:35
DX: R07.89 Other chest pain (principal); G89.29 Other chronic pain; J44.9 Chronic obstructive pulmonary disease, unspecified
CPT/HCPCS: 36415; 71010; 80048; 84484; 85025; 93005; 96374; 96375; 99285; J1885; J2270; J2405

== ENCOUNTER 2018-03-20 15:55 | Observation (INO) | payer MEDICARE, OTHER ==
[~2018-03-20] VITALS: Ht 165.1 cm; Wt 71.6 kg
[~2018-03-20 15:55] MED LIST changes: +HYDR-3980 PO; +HYDR-4011 PO; -HYDR-902 PO; -HYDR-906 PO; +QUET25TA PO; -QUET25TA26 PO; +TRA100 PO; -TRAZ100T15 PO
--- NOTE | 2018-03-20 16:15 | ERD ---
ER Documentation Chief Complaint Chief Complaint The patient is a 72-year-old male, presenting to the ER because of right-sided chest pain intermittently for the last 3 days, worse with movement. She denies similar symptoms previously, denies fever, cough, chest pain with vomiting/radiation/exertion/diaphoresis, dyspnea, abdominal pain, vomiting, dysuria. She does not smoke nor drink, use 2 L nasal cannula as needed Past medical history: Asthma, COPD, rheumatoid arthritis, dyslipidemia Past surgical history: Appendectomy, right knee arthroplasty ROS All systems reviewed and are negative except as per history of present illness. Medications Home Meds Active Scripts Hydrocodone/Acetaminophen ([place] 5-325 Tablet) 1 Each Tablet, 1 EACH PO Q4 PRN for PAIN LEVEL 6-10, #20 TAB Prov:IKE SANDS MD 01/16/17 Cephalexin* (Keflex*) 500 Mg Capsule, 500 MG PO BID for 7 Days, CAP Prov:RONALD MARTINS MD 01/10/17 Reported Medications Tiotropium Br/Olodaterol HCl (Stiolto Respimat Inhal [place]) 4 Gm Mist.inhal, 2 PUFF INHALATION DAILY, #1 INHALER 01/10/17 Nystatin* (Nystatin* Oint) 15 Gm Oint, 1 APPLIC TOP BID, #1 TUB 01/10/17 Quetiapine Fumarate* (Seroquel*) 25 Mg Tablet, 25 MG PO HS, #30 TAB 01/10/17 Sertraline Hcl* (Zoloft*) 50 Mg Tablet, 50 MG PO DAILY, #30 TAB 01/10/17 Terbinafine* (Lamisil*) 250 Mg Tablet, 250 MG PO DAILY, TAB 01/10/17 Hydrocodone/Acetaminophen ([place] 10-325 Tablet) 1 Each Tablet, 1 EACH PO Q8, TAB 01/10/17 Suvorexant (Belsomra) 10 Mg Tablet, 10 MG PO QHS, TAB 01/10/17 Trazodone Hcl* (Trazodone Hcl*) 100 Mg Tablet, 100 MG PO QHS, #30 TAB 01/10/17 Rosuvastatin Calcium* (Crestor*) 20 Mg Tablet, 20 MG PO QHS, #30 TAB 01/10/17 Ondansetron Hcl* (Ondansetron Hcl*) 4 Mg Tablet, 4 MG PO Q6H PRN for NAUSEA AND/OR VOMITING, TAB 07/20/16 Levothyroxine Sodium* (Levothyroxine Sodium*) 88 Mcg Tablet, 88 MCG PO BEFORE BREAKFAST, #30 TAB 07/20/16 Allergies Allergies: Coded Allergies: No Known Drug Allergy (Verified Allergy, Unknown, 01/16/17) PMhx/Soc History of Surgery: Yes (APPENDECTOMY, R-LUMPECTOMY, TUBAL LIGATION) Anesthesia Reaction: No Hx Neurological Disorder: No (RA) Hx Respiratory Disorders: Yes (ASTHMA, COPD) Hx Cardiac Disorders: Yes Hx Psychiatric Problems: No Hx Miscellaneous Medical Probl: Yes (Thyroid, BEDRIDDEN-RA, OSTEOPOROSIS) Hx Alcohol Use: No Hx Substance Use: No Hx Tobacco Use: No Physical Exam Vitals Vital Signs Date Temp Pulse Resp B/P (MAP) Pulse Ox O2 O2 Flow FiO2 Time Delivery Rate 03/20/18 98.3 79 20 129/73 98 Room Air 18:00 (91) 03/20/18 98.3 76 20 124/76 98 Nasal 2.0 17:00 (92) Cannula 03/20/18 78 20 98 21 16:53 03/20/18 Nasal 16:35 Cannula 03/20/18 Nasal 16:32 Cannula 03/20/18 98.3 79 20 126/98 98 Room Air 16:30 (107) 03/20/18 98.3 79 20 125/64 98 Room Air 16:15 (84) 03/20/18 98.3 79 20 126/98 97 15:55 (107) Physical Exam Const: No acute distress. Head: Atraumatic. Eyes: Normal Conjunctiva. ENT: Normal External Ears, Nose and Mouth. Neck: Full range of motion. No meningismus. Resp: Mild bilateral expiratory wheezes Cardio: Regular rate and rhythm. Abd: Soft, non distended, normal bowel sounds, non tender. Skin: No petechiae or rashes. Back: No midline or flank tenderness. Ext: No cyanosis, or edema. Neur: Awake and alert. No focal deficit Psych: Normal Mood and Affect. Result Diagram: 03/20/18 0755 03/20/18 1708 Results 24 hrs Laboratory Tests Test 03/20/18 16:25 03/20/18 17:03 White Blood Count 10.1 10^3/ul Red Blood Count 4.64 10^6/ul Hemoglobin 13.9 g/dl Hematocrit 41.9 % Mean Corpuscular Volume 90.3 fl Mean Corpuscular Hemoglobin 30.0 pg Mean Corpuscular Hemoglobin Concent 33.2 g/dl Red Cell Distribution Width 14.6 % Platelet Count 342 10^3/UL Mean Platelet Volume 10.4 fl Immature Granulocytes % 0.200 % Neutrophils % 52.2 % Lymphocytes % 35.8 % Monocytes % 7.6 % Eosinophils % 3.5 % Basophils % 0.7 % Nucleated Red Blood Cells % 0.0 /100WBC Immature Granulocytes # 0.020 10^3/ul Neutrophils # 5.3 10^3/ul Lymphocytes # 3.6 10^3/ul Monocytes # 0.8 10^3/ul Eosinophils # 0.4 10^3/ul Basophils # 0.1 10^3/ul Nucleated Red Blood Cells # 0.0 10^3/ul Prothrombin Time 12.6 Sec Prothrombin Time Ratio 1.0 INR International Normalized Ratio 0.93 Activated Partial Thromboplast Time 25.5 Sec Sodium Level 144 mmol/L Potassium Level 4.0 mmol/L Chloride Level 106 mmol/L Carbon Dioxide Level 25 mmol/L Anion Gap 13 Blood Urea Nitrogen 16 mg/dl Creatinine 0.68 mg/dl Est Glomerular Filtrat Rate mL/min > 60 mL/min Glucose Level 92 mg/dl Calcium Level 9.6 mg/dl Troponin I < 0.012 ng/ml B-Type Natriuretic Peptide 241 PG/ML Current Medications Medications Dose Sig/Viraj Start Time Status Last (Trade) Ordered Route PRN Stop Time Admin Dose Reason Admin Ipratropium 0.5 mg ONCE STAT 03/20/18 DC 03/20/18 [place] IN[facility] 16:21 16:52 (Atrovent 03/20/18 16:22 0.02% (Neb)) 1.25 mg ONCE ONCE 03/20/18 DC 03/20/18 Levalbuterol HHN 16:30 16:53 (Xopenex 03/20/18 16:31 Neb) Aspirin 324 mg ONCE ONCE 03/20/18 DC 03/20/18 (Aspirin) PO 18:00 18:01 03/20/18 18:01 0.5 inch ONCE ONCE 03/20/18 DC 03/20/18 Nitroglycerin TD 18:00 18:01 03/20/18 18:01 (Nitroglyceri n 2% Oint) Procedures/MDM [place] [address] Radiology Main Line: [phone] DIAGNOSTIC IMAGING REPORT Patient: KIMI GOLD : 1945 Age: 72 Sex: F MR #: [id number] DOS: 03/20/18 1621 Ordering MD: JAMIE WHITAKER MD Location: E/R Room/Bed: PROCEDURE: XR Chest. CLINICAL INDICATION: Shortness of breath TECHNIQUE: Single frontal radiograph of the chest. COMPARISON: CHEST 01/23/2017; DC [facility] CHEST 11/04/2008 FINDINGS: Minimal bibasilar atelectasis. No acute air space infiltrates. No pleural effusion. No pneumothorax. The cardiomediastinal silhouette is unremarkable. Vascular calcifications of the aorta are present compatible with atherosclerosis. IMPRESSION: Minimal bibasilar atelectasis. No acute air space infiltrates. RPTAT: AADD .Bernardo Payne MD, MD Date Time Electronically viewed and signed by .Bernardo Payne MD, MD on 03/20/2018 16:52 .B/ CC: JAMIE WHITAKER MD [phone] EKG: Read by emergency physician Rate/Rhythm: Normal Sinus Rhythm 80 beats/min QRS, ST, T-waves: No ST elevation, no T inversion Impression: Normal EKG MEDICAL MAKING DECISION: The patient is a 72-year-old female, presenting with acute chest pain of unclear etiology, concerning for acute ACS. She was treated with aspirin 325 mg p.o. and 0.5 mg nitroglycerin ointment to the chest wall for acute chest pain, Xopenex 1.25 mg and Atrovent 0.5 mg for acute wheezing with good response The differential diagnoses considered include but are not limited to acute coronary syndrome, acute myocardial infarction, pericarditis, pulmonary embolism, aortic dissection, pneumonia, pleural effusion, pneumothorax, GERD, chest wall pain. Departure Diagnosis: Primary Impression: Chest pain Additional Impression: COPD (chronic obstructive pulmonary disease) Condition: Stable Comments I discussed the findings with the patient. I discussed the patient with his physician Dr. Barrera at 6:15 PM. who was made aware of the lab, the treatment, the patient condition. The patient is admitted to [facility] Disclaimer: Inadvertent spelling and grammatical errors are likely due to EHR/dictation software use and do not reflect on the overall quality of patient care. Also, please note that the electronic time recorded on this note does not necessarily reflect the actual time of the patient encounter. JAMIE WHITAKER MD Mar 20, 2018 16:15
[2018-03-20] MEDS ORDERED: IPRATROPIUM (NEB) 0.5 MG/2.5 ML AMP INH STA (16:21)
[2018-03-20] MEDS ORDERED: LEVALBUTEROL (NEB) 1.25 MG/0.5 ML AMP HHN ONE (16:30)
[2018-03-20] MEDS ORDERED: ASPIRIN 81 MG TAB PO ONE (18:00)
[2018-03-20] MEDS ORDERED: NITROGLYCERIN 2% 1 GM OINT PKT TD ONE (18:00)
[2018-03-20 20:00] VITALS: Ht 165.1 cm; Wt 71.6 kg
[2018-03-20 20:16] VITALS: PULSE 81
[2018-03-20 20:30] VITALS: BP 167/86; PULSE 86; RESP 18
[2018-03-20] MEDS ORDERED: NITROGLYCERIN (SL) 0.4 MG TAB SL PRN (21:00)
[2018-03-20] MEDS: ARTIFICIAL TEARS 15 ML OPH BOTH EYES SCH (21:00)
[2018-03-20] MEDS ORDERED: NACL 0.9% 3 ML SYG IV SCH (21:00)
[2018-03-20] MEDS: traZODone 100 MG TAB PO SCH ×2 (21:00→22:01)
[2018-03-20] MEDS ORDERED: ZOLPIDEM 5 MG TAB PO PRN (21:00)
[2018-03-20] MEDS ORDERED: ONDANSETRON 4 MG TAB PO PRN ×2 (21:00)
[2018-03-20] MEDS ORDERED: METHYLPREDNISOLONE 125 MG INJ IV ONE (21:00)
[2018-03-20] MEDS ORDERED: LORAZEPAM 0.5 MG TAB PO PRN (21:00)
[2018-03-20] MEDS ORDERED: NA PHOSPHATE/BIPHOS 133 ML ENEMA PR PRN (21:00)
[2018-03-20] MEDS ORDERED: AZITHROMYCIN 250 MG TAB PO ONE (21:00)
[2018-03-20] MEDS ORDERED: HYDROCODONE/APAP (5/325) TAB PO PRN (21:00)
[2018-03-20] MEDS: CALCIUM CARBONATE 500 MG CHEW TAB PO SCH (22:02)
[2018-03-20] MEDS: QUETIAPINE 25 MG TAB PO SCH (22:02)
[2018-03-20] MEDS: FAMOTIDINE 20 MG TAB PO SCH (22:02)
[2018-03-20] MEDS: ATORVASTATIN 40 MG TAB PO SCH (22:02)
[2018-03-20] MEDS: HEPARIN 5,000 UNIT/1 ML VIAL SC SCH (22:10)
[2018-03-20] MEDS: FLUTICASONE/VILANTEROL 100-25 INH SCH (22:25)
[2018-03-21] VITALS (12 sets, daily range): BP systolic 107–140; BP diastolic 55–72; PULSE 80–96; RESP 16–19
[2018-03-21] MEDS: LEVOTHYROXINE 88 MCG TAB PO SCH (06:40)
[2018-03-21] MEDS ORDERED: CELECOXIB 200 MG CAP PO ONE (09:00)
[2018-03-21] MEDS: ASPIRIN 81 MG TAB PO SCH ×2 (09:00→11:42)
[2018-03-21] MEDS: ARTIFICIAL TEARS 15 ML OPH BOTH EYES SCH ×3 (09:00→20:34)
[2018-03-21] MEDS: TIOTROPIUM 18 MCG CAPSULE INHA DEV INH SCH (09:00)
[2018-03-21] MEDS: FLUTICASONE/VILANTEROL 100-25 INH SCH (09:00)
[2018-03-21] MEDS: HEPARIN 5,000 UNIT/1 ML VIAL SC SCH ×2 (09:00→20:39)
[2018-03-21] MEDS: FAMOTIDINE 20 MG TAB PO SCH ×2 (09:00→20:37)
[2018-03-21] MEDS: SERTRALINE 50 MG TAB PO SCH (09:00)
[2018-03-21] MEDS: CALCIUM CARBONATE 500 MG CHEW TAB PO SCH ×4 (09:00→20:38)
--- NOTE | 2018-03-21 09:38 | HP ---
Date/Time of Note Date/Time of Note DATE: 03/21/18 TIME: 09:26 Assessment/Plan VTE Prophylaxis SCD applied (from Nsg): No SCD contraindicated: low risk/ambulating Pharmacological prophylaxis: heparin Lines/Catheters IV Catheter Type (from Nrsg): Saline Lock Assessment/Plan Problems: (1) Chest pain Status: Acute Comment: Her cardiac enzymes are normal as expected. She has reproducible chest wall pain and as such this is an acute costochondritis. Patient declines trigger point injections and will get her started on nonsteroidal anti- inflammatory drugs. Qualifiers: Chest pain type: intercostal pain Qualified Codes: R07.82 - Intercostal pain (2) Acute costochondritis Status: Acute Comment: Nonsteroidal anti-inflammatory drugs as the patient declines trigger point injection which could have been considered in the emergency room (3) Xiphoiditis Status: Acute Comment: Celebrex. Patient declines trigger point injection which could have been considered in the emergency room (4) Asthma-COPD overlap syndrome Status: Chronic Comment: This is actually relatively well compensated at this time (5) Rheumatoid arthritis Status: Chronic Comment: Patient is treated by Dr. Dumont. She is on methotrexate with folate which will be continued as an outpatient. Qualifiers: Rheumatoid arthritis location: multiple sites Rheumatoid factor presence: with rheumatoid factor Qualified Codes: M05.79 - Rheumatoid arthritis with rheumatoid factor of multiple sites without organ or systems involvement (6) Essential hypertension Status: Chronic Comment: Adequate control at this time. (7) Grade I diastolic dysfunction Status: Chronic Comment: Control of blood pressure. (8) Hyperlipidemia Status: Chronic Comment: Maintain statin therapy. Qualifiers: Hyperlipidemia type: pure hypercholesterolemia Qualified Codes: E78.00 - Pure hypercholesterolemia, unspecified (9) Acquired hypothyroidism Status: Chronic Comment: Adequately replaced. Continue levothyroxine replacement therapy (10) Chronic pain syndrome Status: Chronic Comment: Noted. Continue with treatment including gabapentin (11) Persistent disorder of initiating or maintaining sleep Status: Chronic Comment: Noted. Continue her outpatient regimen on discharge (12) Hx laparoscopic cholecystectomy Onset Date: ~ 03/2009 Status: Chronic Comment: Noted. (13) History of total right hip arthroplasty Status: Chronic Comment: Noted. (14) History of total left hip arthroplasty Status: Chronic Comment: Noted. (15) History of lumpectomy of right breast Status: Chronic Comment: Noted. No evidence of recurrent disease (16) History of appendectomy Status: Chronic Comment: Noted. (17) History of total right knee replacement Onset Date: ~ 06/15/2017 Status: Chronic Comment: Noted. (18) Former smoker Onset Date: ~ 03/2007 Status: Chronic Comment: Noted. Reinforced Result Diagram: 03/21/18 0247 03/21/18 0247 Results 24hrs Laboratory Tests Test 03/20/18 16:25 03/20/18 17:03 03/20/18 21:07 03/20/18 23:00 White Blood Count 10.1 # Red Blood Count 4.64 Hemoglobin 13.9 Hematocrit 41.9 Mean Corpuscular 90.3 Volume Mean Corpuscular 30.0 Hemoglobin Mean Corpuscular 33.2 Hemoglobin Concent Red Cell 14.6 H Distribution Width Platelet Count 342 Mean Platelet Volume 10.4 Immature 0.200 Granulocytes % Neutrophils % 52.2 Lymphocytes % 35.8 Monocytes % 7.6 Eosinophils % 3.5 Basophils % 0.7 Nucleated Red Blood 0.0 Cells % Immature 0.020 Granulocytes # Neutrophils # 5.3 Lymphocytes # 3.6 H Monocytes # 0.8 Eosinophils # 0.4 Basophils # 0.1 Nucleated Red Blood 0.0 Cells # Prothrombin Time 12.6 Prothrombin Time 1.0 Ratio INR International 0.93 Normalized Ratio Activated 25.5 Partial Thromboplast Time Sodium Level 144 Potassium Level 4.0 Chloride Level 106 Carbon Dioxide Level 25 Anion Gap 13 Blood Urea Nitrogen 16 Creatinine 0.68 Est Glomerular > 60 Filtrat Rate mL/min Glucose Level 92 Calcium Level 9.6 Troponin I < 0.012 < 0.012 B-Type Natriuretic 241 H Peptide Creatine Kinase 34 Creatine Kinase 0.7 Index Creatinine Kinase MB 0.25 (Mass) Urine Color YELLOW Urine Clarity CLOUDY A Urine pH 5.0 Urine Specific 1.017 Wellman Urine Ketones NEGATIVE Urine Nitrite NEGATIVE Urine Bilirubin NEGATIVE Urine Urobilinogen NEGATIVE Urine Leukocyte 3+ H Esterase Urine Microscopic 32 H RBC Urine Microscopic > 182 H WBC Urine Bacteria FEW A Urine Mucus FEW A Urine Hemoglobin NEGATIVE Urine Glucose NEGATIVE Urine Total Protein 1+ H Test 03/21/18 02:47 White Blood Count 9.7 Red Blood Count 4.35 Hemoglobin 13.1 Hematocrit 39.4 Mean Corpuscular 90.6 Volume Mean Corpuscular 30.1 Hemoglobin Mean Corpuscular 33.2 Hemoglobin Concent Red Cell 13.8 Distribution Width Platelet Count 281 Mean Platelet Volume 9.7 Immature 0.400 Granulocytes % Neutrophils % 90.3 H Lymphocytes % 8.6 L Monocytes % 0.3 Eosinophils % 0.1 Basophils % 0.3 Nucleated Red Blood 0.0 Cells % Immature 0.040 H Granulocytes # Neutrophils # 8.8 H Lymphocytes # 0.8 Monocytes # 0.0 L Eosinophils # 0.0 Basophils # 0.0 Nucleated Red Blood 0.0 Cells # Sodium Level 139 Potassium Level 4.0 Chloride Level 106 Carbon Dioxide Level 24 Anion Gap 9 Blood Urea Nitrogen 14 Creatinine 0.66 Est Glomerular > 60 Filtrat Rate mL/min Glucose Level 109 Hemoglobin A1c 5.2 Calcium Level 9.7 Total Bilirubin 0.1 L Direct Bilirubin 0.00 Indirect Bilirubin 0.1 Aspartate Amino 27 Transf (AST/SGOT) Alanine 20 Aminotransferase (AL T/SGPT) Alkaline Phosphatase 98 Creatine Kinase 32 Creatine Kinase 1.0 Index Creatinine Kinase MB 0.32 (Mass) Troponin I < 0.012 Total Protein 6.3 Albumin 3.7 Globulin 2.60 Albumin/Globulin 1.42 Ratio CC: JAMIE WHITAKER MD; MARI MONGE MD; EDWARD RED MD ; HPI/ROS Admit Date/Time Admit Date/Time Mar 20, 2018 at 18:24 Hx of Present Illness 72-year-old female who sister roughly 10 days ago. Starting 1 week ago she had the onset of sharp right anterior upper chest wall pain where the rib meets the sternum. This would occasionally radiate around to the back and was not associated with shortness of breath nausea vomiting diaphoresis or palpitations. This was worsened with certain movements as described in the emergency room physician's note. Patient reports a direct palpation with one fingertip exacerbated the pain. Her caregiver became concerned and called paramedics where she was brought to the emergency room. In the emergency room it was determined based on her age and her having chest pain she should be admitted. ROS Constitutional: no complaints Eyes: no complaints ENT: no complaints Respiratory: no complaints (Please note she has a history of asthma COPD overlap syndrome she has not been having cough wheezing or shortness of breath or pleurisy) Cardiovascular: chest pain ([place] chest wall pain aggravated by motion no other symptoms) Gastrointestinal: no complaints Genitourinary: no complaints Musculoskeletal: other (Chest wall pain; chronic pain syndrome diffusely) Skin: no complaints Neurologic: no complaints Endocrine: no complaints Lymphatic: no complaints Psychological: no complaints PMH/Family/Social Past Medical History Medical History: cancer (History right breast lumpectomy), high cholesterol, hypertension, hypothyroid, other (Asthma COPD overlap syndrome; rheumatoid arthritis; chronic pain syndrome; disorders of initiating and maintaining sleep; ambulatory instability; diastolic dysfunction grade 1; osteopenia) Medications Current Medications Acetaminophen/ Hydrocodone Bitart ([place] (5/325)) 1 tab Q4H PRN PO PAIN LEVEL 6-10 Last administered on 03/20/18at 22:11; Admin Dose 1 TAB; Start 03/20/18 at 21:00 Levothyroxine Sodium (Synthroid) 88 mcg BEFORE BREAKFAST PO Last administered on 03/21/18at 06:40; Admin Dose 88 MCG; Start 03/21/18 at 07:00 Ondansetron HCl (Zofran Tab) 4 mg Q6H PRN PO NAUSEA AND/OR VOMITING; Start 03/20/18 at 21:00 Quetiapine Fumarate (Seroquel) 25 mg HS PO Last administered on 03/20/18at 22:02; Admin Dose 25 MG; Start 03/20/18 at 21:00 Sertraline HCl (Zoloft) 50 mg DAILY PO ; Start 03/21/18 at 09:00 Trazodone HCl (Desyrel) 100 mg QHS PO ; Start 03/20/18 at 21:00 Atorvastatin Calcium (Lipitor) 40 mg HS PO Last administered on 03/20/18at 22:02; Admin Dose 40 MG; Start 03/20/18 at 21:00 Tiotropium [place] (Spiriva) 1 inh DAILY INH ; Start 03/21/18 at 09:00 Fluticasone/ Vilanterol (Breo Ellipta 100-25 Mcg Inh) 1 inh DAILY INH Last administered on 03/20/18at 22:25; Admin Dose 1 INH; Start 03/20/18 at 21:00 IV Flush (NS 3 ml) 3 ml PER PROTOCOL IV ; Start 03/20/18 at 21:00 Lorazepam (Ativan) 0.5 mg Q8H PRN PO ANXIETY; Start 03/20/18 at 21:00 Aspirin (Aspirin) 81 mg DAILY PO ; Start 03/21/18 at 09:00 Zolpidem Tartrate (Ambien) 5 mg QHS PRN PO INSOMNIA Last administered on 03/20/18at 22:49; Admin Dose 5 MG; Start 03/20/18 at 21:00 Sodium Biphosphate/ Sodium Phosphate (Fleet Enema) 133 ml DAILY PRN [place] CONSTIPATION; Start 03/20/18 at 21:00 Famotidine (Pepcid) 20 mg Q12 PO Last administered on 03/20/18at 22:02; Admin Dose 20 MG; Start 03/20/18 at 21:00 Eye Lubricant (Artificial Tears Oph) 1 drop TID BOTH EYES ; Start 03/20/18 at 21:00 Heparin Sodium (Porcine) (Heparin (5000 Units/1ml)) 5,000 unit Q12 SC Last administered on 03/20/18at 22:10; Admin Dose 5,000 UNIT; Start 03/20/18 at 21:00 Calcium Carbonate (Tums) 500 mg QID PO Last administered on 03/20/18at 22:02; Admin Dose 500 MG; Start 03/20/18 at 21:00 Nitroglycerin (Nitroglycerin (Sl Tab) 0.4 Mg) 1 tab Q5M PRN SL CHEST PAIN; Start 03/20/18 at 21:00 Coded Allergies: No Known Drug Allergies (Verified Allergy, Unknown, 03/20/18) Past Surgical History Past Surgical Hx: appendectomy, other (Status post right total hip replacement; status post right total knee replacement; status post left total hip replacement; status post right breast lumpectomy;) Family History Significant Family History: cancer (Breast), diabetes, hypertension, lung disease, other (Rheumatoid arthritis) Social History Alcohol Use: none Smoking Status: Former smoker Drug Use: none Exam/Review of Systems Vital Signs Vitals Vital Signs Date Temp Pulse Resp B/P (MAP) Pulse Ox O2 O2 Flow FiO2 Time Delivery Rate 03/21/18 93 08:01 03/21/18 98.4 19 107/58 97 07:43 (74) 03/21/18 2.0 27 05:51 03/20/18 Nasal 20:00 Cannula Intake and Output 03/20/18 03/20/18 03/21/18 1515:00 23:00 07:00 IntakeIntake Total 500 ml BalanceBalance 500 ml Exam Constitutional: alert, oriented Head: normocephalic, atraumatic Eyes: nl conjunctiva, EOMI, nl lids, nl sclera, PERRL ENMT: nl external ears & nose, nl lips & teeth, nl nasal mucosa & septum, mucosa pink and moist Neck: supple, non-tender Respiratory: clear to auscultation, normal air movement Cardiovascular: regular rate and rhythm, nl pulses, other (Reproducible chest wall pain at the right second costosternal junction and at the xiphoid process which mimics her symptoms exactly. Please note the patient declines trigger point injection) Gastrointestinal: soft, nl liver, spleen, non-tender Musculoskeletal: nl extremities to inspection Extremities: normal pulses Neurological: [employer] II-XII intact, nl mental status, nl speech, nl strength Lymph: nl lymph nodes LUDY LEOS MD Mar 21, 2018 09:37
[2018-03-21] MEDS ORDERED: PANT40TA4 PO (09:42)
[2018-03-21] MEDS ORDERED: GABA100C14 PO (09:42)
[2018-03-21] MEDS ORDERED: CHOL100062 PO (09:42)
[2018-03-21] MEDS ORDERED: OXYC-438 PO (09:42)
[2018-03-21] MEDS ORDERED: MONT10TA24 PO (09:42)
[2018-03-21] MEDS ORDERED: MELA1TAB10 PO (09:42)
[2018-03-21] MEDS ORDERED: METO25TA4 PO (09:42)
[2018-03-21] MEDS ORDERED: FOLI-49 PO (09:42)
[2018-03-21] MEDS ORDERED: FER325 PO (09:42)
[2018-03-21] MEDS: METOPROLOL 25 MG TAB PO SCH (11:00)
[2018-03-21] MEDS: CHOLECALCIFEROL 1,000 UNIT TAB PO SCH ×2 (11:39→20:38)
[2018-03-21] MEDS: TERBINAFINE 250 MG TAB PO SCH (11:40)
[2018-03-21] MEDS: PANTOPRAZOLE (EC) 40 MG TAB PO SCH (11:41)
[2018-03-21] MEDS: GABAPENTIN 100 MG CAP PO SCH ×2 (11:41→20:37)
[2018-03-21] MEDS ORDERED: ACETAMINOPHEN 325 MG TAB PO PRN (13:30)
[2018-03-21] MEDS ORDERED: ONDANSETRON 4 MG INJ IV STA (13:52)
[2018-03-21] MEDS ORDERED: CHLORPROMAZINE 25 MG TAB PO ONE (14:00)
[2018-03-21] MEDS ORDERED: SUMATRIPTAN 50 MG TAB PO ONE (18:30)
[2018-03-21] MEDS: ATORVASTATIN 40 MG TAB PO SCH (20:35)
[2018-03-21] MEDS: traZODone 100 MG TAB PO SCH (20:35)
[2018-03-21] MEDS: QUETIAPINE 25 MG TAB PO SCH (20:37)
[2018-03-21] MEDS ORDERED: GABAPENTIN 300 MG CAP PO SCH (21:00)
[2018-03-21] MEDS ORDERED: MELATONIN 5 MG TABLET PO SCH (21:00)
[2018-03-21] MEDS ORDERED: MONTELUKAST 10 MG TAB PO SCH (21:00)
[2018-03-21] MEDS: IPRATROPIUM 0.03% 30 ML NASAL SPRAY NASAL SCH (21:27)
[2018-03-22] VITALS (10 sets, daily range): BP systolic 87–127; BP diastolic 50–62; PULSE 73–95; RESP 18–19
[2018-03-22] MEDS: LEVOTHYROXINE 88 MCG TAB PO SCH (06:07)
[2018-03-22] MEDS: PANTOPRAZOLE (EC) 40 MG TAB PO SCH (06:07)
[2018-03-22] MEDS: ARTIFICIAL TEARS 15 ML OPH BOTH EYES SCH ×2 (09:00→13:00)
[2018-03-22] MEDS: CALCIUM CARBONATE 500 MG CHEW TAB PO SCH ×2 (09:00→13:00)
[2018-03-22] MEDS: TIOTROPIUM 18 MCG CAPSULE INHA DEV INH SCH (09:00)
[2018-03-22] MEDS: ASPIRIN 81 MG TAB PO SCH (09:00)
[2018-03-22] MEDS: HEPARIN 5,000 UNIT/1 ML VIAL SC SCH (09:00)
[2018-03-22] MEDS: SERTRALINE 50 MG TAB PO SCH (09:00)
[2018-03-22] MEDS: METOPROLOL 25 MG TAB PO SCH (09:00)
[2018-03-22] MEDS: FAMOTIDINE 20 MG TAB PO SCH (09:00)
[2018-03-22] MEDS: GABAPENTIN 100 MG CAP PO SCH (09:42)
[2018-03-22] MEDS: CHOLECALCIFEROL 1,000 UNIT TAB PO SCH (09:43)
[2018-03-22] MEDS: TERBINAFINE 250 MG TAB PO SCH (09:43)
[2018-03-22] MEDS: IPRATROPIUM 0.03% 30 ML NASAL SPRAY NASAL SCH (09:43)
[2018-03-22] MEDS: FLUTICASONE/VILANTEROL 100-25 INH SCH (09:43)
--- NOTE | 2018-03-22 13:21 | DS ---
Date/Time of Note Date/Time of Note DATE: 03/22/18 TIME: 13:19 Discharge Summary Admission/Discharge Info Admit Date/Time Mar 20, 2018 at 18:24 Discharge Date/Time March 22, 2018 Discharge Diagnosis Noncardiac chest pain; costochondritis; xiphoiditis; gram-negative UTI; COPD; hyperlipidemia; acquired hypothyroidism; migraine syndrome; dysthymia Patient Condition: Good Procedures IV antibiotic therapy, rule out ND protocol. Hx of Present Illness 72-year-old female who sister roughly 10 days ago. Starting 1 week ago she had the onset of sharp right anterior upper chest wall pain where the rib meets the sternum. This would occasionally radiate around to the back and was not associated with shortness of breath nausea vomiting diaphoresis or palpitations. This was worsened with certain movements as described in the emergency room physician's note. Patient reports a direct palpation with one fingertip exacerbated the pain. Her caregiver became concerned and called paramedics where she was brought to the emergency room. In the emergency room it was determined based on her age and her having chest pain she should be admitted. Hospital Course Ekta 9-year-old woman who is admitted to the hospital with chest pain. Please see history of present illness. She came in was stabilized and had negative cardiac evaluation. She declined trigger point injections. She however did develop a migraine after receiving nitroglycerin in the emergency room which was relieved with treatment using Imitrex. She also was found to have a gram-negative urinary tract infection sensitivities are pending at this time. She is stable for discharge and will go ahead and discharge her home. As precaution I will give her 1 dose of oral fosfomycin which should very likely eradicate the urinary tract infection but she will also go out with some antibiotics. She will follow-up in our office in 1 week Home Meds Active Scripts Hydrocodone/Acetaminophen ([place] 5-325 Tablet) 1 Each Tablet, 1 EACH PO Q4 PRN for PAIN LEVEL 6-10, #20 TAB Prov:IKE SANDS MD 01/16/17 Cephalexin* (Keflex*) 500 Mg Capsule, 500 MG PO BID for 7 Days, CAP Prov:RONALD MARTINS MD 01/10/17 Reported Medications Oxycodone HCl/Acetaminophen (Oxycodone-Acetaminophen 5-325) 1 Each Tablet, 1 EACH PO DAILY, TAB 03/21/18 Melatonin-Pyridoxine Hcl (Melatonin) 5-10 Mg Tablet, 2 TAB PO HS, TAB 03/21/18 Metoprolol Tartrate* (Lopressor*) 25 Mg Tablet, 25 MG PO DAILY, #60 TAB 03/21/18 Folic Acid* (Folic Acid*) 1 Mg Tablet, 1 MG PO DAILY, TAB 03/21/18 Ferrous Sulfate* (Ferrous Sulfate*) 325 Mg Tabec, 325 MG PO DAILY, TAB 03/21/18 Gabapentin* (Gabapentin*) 100 Mg Capsule, 100 MG PO BID, #90 CAP 03/21/18 Pantoprazole* (Pantoprazole*) 40 Mg Tablet.dr, 40 MG PO DAILY, TAB 03/21/18 Cholecalciferol* (Vitamin D3*) 1,000 Unit Tablet, 1000 UNIT PO BID, TAB 03/21/18 Montelukast Sodium* (Montelukast Sodium*) 10 Mg Tablet, 10 MG PO QHS, #30 TAB 03/21/18 Tiotropium Br/Olodaterol HCl (Stiolto Respimat Inhal [place]) 4 Gm Mist.inhal, 2 PUFF INHALATION DAILY, #1 INHALER 01/10/17 Nystatin* (Nystatin* Oint) 15 Gm Oint, 1 APPLIC TOP BID, #1 TUB 01/10/17 Quetiapine Fumarate* (Seroquel*) 25 Mg Tablet, 25 MG PO HS, #30 TAB 01/10/17 Sertraline Hcl* (Zoloft*) 50 Mg Tablet, 50 MG PO DAILY, #30 TAB 01/10/17 Terbinafine* (Lamisil*) 250 Mg Tablet, 250 MG PO DAILY, TAB 01/10/17 Hydrocodone/Acetaminophen ([place] 10-325 Tablet) 1 Each Tablet, 1 EACH PO Q8, TAB 01/10/17 Suvorexant (Belsomra) 10 Mg Tablet, 10 MG PO QHS, TAB 01/10/17 Trazodone Hcl* (Trazodone Hcl*) 100 Mg Tablet, 100 MG PO QHS, #30 TAB 01/10/17 Rosuvastatin Calcium* (Crestor*) 20 Mg Tablet, 20 MG PO QHS, #30 TAB 01/10/17 Ondansetron Hcl* (Ondansetron Hcl*) 4 Mg Tablet, 4 MG PO Q6H PRN for NAUSEA AND/OR VOMITING, TAB 07/20/16 Levothyroxine Sodium* (Levothyroxine Sodium*) 88 Mcg Tablet, 88 MCG PO BEFORE BREAKFAST, #30 TAB 07/20/16 Follow-up Plan Our office 1 week Primary Care Provider Abhianv Esquivel MD Time spent on discharge: > 30 minutes LUDY LEOS MD Mar 22, 2018 13:21
--- NOTE | 2018-03-22 13:22 | PDOCDIS ---
Discharge Instructions DIAGNOSIS Discharge Diagnosis Noncardiac chest pain; costochondritis; xiphoiditis; gram-negative UTI; COPD; hyperlipidemia; acquired hypothyroidism; migraine syndrome; dysthymia CONDITION [id number] Patient Condition: [id number] Good HOME CARE INSTRUCTIONS: [id number] Special Diet: [id number] CCD ACTIVITY: [id number] Activity Restrictions: [id number] Slowly Increase Activity Do not operate Machinery Do not operate Power Tool FOLLOW UP/APPOINTMENTS Follow-up Plan Our office 1 week LUDY LEOS MD Mar 22, 2018 13:22
[2018-03-22] MEDS ORDERED: GABA300C16 PO (13:25)
[2018-03-22] MEDS ORDERED: LEVO500T10 PO (13:25)
[2018-03-22] MEDS ORDERED: ASPI-831 PO (13:25)
[2018-03-22] MEDS ORDERED: FOSFOMYCIN 3 GM PACKET PO ONE (13:30)
== END 2018-03-22 16:35 | disposition home or self-care (01) ==
LOC: E/R 15:55 → TEL 18:24
PROVIDERS: ADMIT Internal Medicine; ATTEND Internal Medicine
DX: R07.89 Other chest pain (principal); J45.909 Unspecified asthma, uncomplicated; J44.9 Chronic obstructive pulmonary disease, unspecified; E78.5 Hyperlipidemia, unspecified; M06.9 Rheumatoid arthritis, unspecified; M94.0 Chondrocostal junction syndrome [Tietze]; N39.0 Urinary tract infection, site not specified; E03.9 Hypothyroidism, unspecified; F34.1 Dysthymic disorder; G43.909 Migraine, unspecified, not intractable, without status migrainosus
CPT/HCPCS: 36415; 71045; 80048; 80053; 81001; 82550; 82553; 83036; 83880; 84484; 85025; 85610; 85730; 87086; 93005; 94664; 99285; G0378; J1644; J2405; J2930

== ENCOUNTER 2018-04-27 14:49 | Inpatient (IN) | payer MEDICARE, OTHER ==
[~2018-04-27] VITALS: Ht 165.1 cm; Wt 69.5 kg
[~2018-04-27 14:49] MED LIST changes: +ASPI-831 PO; -CEPH-443 PO; +CHOL100062 PO; +FER325 PO; +FOLI-49 PO; +GABA100C14 PO; +GABA300C16 PO; +LEVO500T10 PO; +MELA1TAB10 PO; +METO25TA4 PO; +MONT10TA24 PO; +OXYC-438 PO; +PANT40TA4 PO
[2018-04-27] MEDS ORDERED: BELLADONNA/PHENOBARBITAL TAB PO STA (15:45)
[2018-04-27] MEDS ORDERED: LIDOCAINE/MYLANTA 40 ML BTL PO STA (15:45)
[2018-04-27] MEDS ORDERED: SOD CHLORIDE 0.9% 1,000 ML IV STA (15:45)
[2018-04-27] MEDS ORDERED: ONDANSETRON 4 MG INJ IV STA (15:45)
[2018-04-27] MEDS ORDERED: CEFTRIAXONE 1 GM/50 ML (PMX) 50 ML IVPB ONE (16:30)
--- NOTE | 2018-04-27 16:31 | ERD ---
ER Documentation Chief Complaint Chief Complaint BIB RA FOR EVAL OF NAUSEA AND DIZZINESS TODAY AFTER TAKING NORTRYPTALINE HPI 72-year-old woman brought in by EMS for multiple episodes of clear nonbloody nonbilious emesis. Patient states she feels weak and dehydrated but denies abdominal pain, no chest pain or shortness of breath, no headache or blurry vision. Patient was transported here without further complications. ROS All systems reviewed and are negative except as per history of present illness. Medications Home Meds Reported Medications Zinc Oxide/[place] Starch (CALDESENE BABY POWDER) 142 Gm Powder, 1 APPLIC TP DAILY 04/27/18 Lactobacillus Acidophilus (Probiotic) 1 Each Capsule, 1 CAP PO DAILY, CAP 04/27/18 Melatonin (Melatonin) 10 Mg Capsule, 20 MG PO HS, CAP 04/27/18 Methotrexate* (Methotrexate*) 2.5 Mg Tab, 20 MG PO WEEKLY, TAB 04/27/18 Cranberry (Cranberry) 400 Mg Capsule, 400 MG PO DAILY, CAP 04/27/18 Aspirin* (Aspirin* EC) 81 Mg Tablet.dr, 81 MG PO DAILY, TAB 04/27/18 Lorazepam* (Lorazepam*) 0.5 Mg Tablet, 0.5 MG PO Q6 PRN for ANXIETY, TAB 04/27/18 Oxycodone HCl/Acetaminophen (Oxycodone-Acetaminophen 10-325) 1 Each Tablet, 1 TAB PO Q6 PRN for SEVERE PAIN LEVEL 7-10 04/27/18 Nortriptyline Hcl* (Nortriptyline Hcl*) 10 Mg Capsule, 10 MG PO BID 04/27/18 Ipratropium-Albuterol (Ipratropium-Albuterol) 0.5-3 Mg/3 Ml Ampul.neb, 3 ML INHALATION Q6 PRN for WHEEZING AND SOB, #30 VIAL 04/27/18 Metoprolol Tartrate* (Lopressor*) 25 Mg Tablet, 25 MG PO DAILY, #60 TAB 03/21/18 Folic Acid* (Folic Acid*) 1 Mg Tablet, 1 MG PO DAILY, TAB 03/21/18 Ferrous Sulfate* (Ferrous Sulfate*) 325 Mg Tabec, 325 MG PO DAILY, TAB 03/21/18 Pantoprazole* (Pantoprazole*) 40 Mg Tablet.dr, 40 MG PO DAILY, TAB 03/21/18 Cholecalciferol* (Vitamin D3*) 1,000 Unit Tablet, 1000 UNIT PO BID, TAB 03/21/18 Montelukast Sodium* (Montelukast Sodium*) 10 Mg Tablet, 10 MG PO QHS, #30 TAB 03/21/18 Rosuvastatin Calcium* (Crestor*) 20 Mg Tablet, 20 MG PO QHS, #30 TAB 01/10/17 Ondansetron Hcl* (Ondansetron Hcl*) 4 Mg Tablet, 4 MG PO Q6H PRN for NAUSEA AND/OR VOMITING, TAB 07/20/16 Levothyroxine Sodium* (Levothyroxine Sodium*) 88 Mcg Tablet, 88 MCG PO BEFORE BREAKFAST, #30 TAB 07/20/16 Discontinued Reported Medications Diphenhydramine Hcl* (Unisom*) 50 Mg Capsule, 100 MG PO HS PRN for SLEEP, CAP 04/27/18 Oxycodone HCl/Acetaminophen (Oxycodone-Acetaminophen 5-325) 1 Each Tablet, 1 EACH PO DAILY, TAB 03/21/18 Melatonin-Pyridoxine Hcl (Melatonin) 5-10 Mg Tablet, 2 TAB PO HS, TAB 03/21/18 Gabapentin* (Gabapentin*) 100 Mg Capsule, 100 MG PO BID, #90 CAP 03/21/18 Tiotropium Br/Olodaterol HCl (Stiolto Respimat Inhal [place]) 4 Gm Mist.inhal, 2 PUFF INHALATION DAILY, #1 INHALER 01/10/17 Nystatin* (Nystatin* Oint) 15 Gm Oint, 1 APPLIC TOP BID, #1 TUB 01/10/17 Quetiapine Fumarate* (Seroquel*) 25 Mg Tablet, 25 MG PO HS, #30 TAB 01/10/17 Sertraline Hcl* (Zoloft*) 50 Mg Tablet, 50 MG PO DAILY, #30 TAB 01/10/17 Terbinafine* (Lamisil*) 250 Mg Tablet, 250 MG PO DAILY, TAB 01/10/17 Hydrocodone/Acetaminophen ([place] 10-325 Tablet) 1 Each Tablet, 1 EACH PO Q8, TAB 01/10/17 Suvorexant (Belsomra) 10 Mg Tablet, 10 MG PO QHS, TAB 01/10/17 Trazodone Hcl* (Trazodone Hcl*) 100 Mg Tablet, 100 MG PO QHS, #30 TAB 01/10/17 Discontinued Scripts Levofloxacin* (Levofloxacin*) 500 Mg Tablet, 500 MG PO DAILY for 3 Days, #3 TAB Prov:LUDY LEOS MD 03/22/18 Gabapentin* (Gabapentin*) 300 Mg Capsule, 600 MG PO QHS for 30 Days, #30 CAP Prov:LUDY LEOS MD 03/22/18 Aspirin (Aspirin) 81 Mg Chew, 81 MG PO DAILY for 30 Days, #30 TAB Prov:LUDY LEOS MD 03/22/18 Hydrocodone/Acetaminophen ([place] 5-325 Tablet) 1 Each Tablet, 1 EACH PO Q4 PRN for PAIN LEVEL 6-10, #20 TAB Prov:IKE SANDS MD 01/16/17 Allergies Allergies: Coded Allergies: No Known Drug Allergies (Verified Allergy, Unknown, 03/20/18) PMhx/Soc Asthma, COPD, rheumatoid arthritis, dyslipidemia, chronic pain syndrome, psychiatric illness, appendectomy, right knee arthroplasty History of Surgery: Yes (right knee 2017,right shoulder 4,5 yrs ago, both hip replacement 2009,right) Anesthesia Reaction: No Hx Neurological Disorder: No Hx Respiratory Disorders: No Hx Cardiac Disorders: No Hx Psychiatric Problems: Yes (anxiety, sister last tuesday) Hx Miscellaneous Medical Probl: No Hx Alcohol Use: No Hx Substance Use: No Hx Tobacco Use: Yes (1/2 pack cigarette/d, stopped 5-6 yrs) Smoking Status: Current every day smoker FmHx Family History: No diabetes Physical Exam Vitals Vital Signs Date Temp Pulse Resp B/P (MAP) Pulse Ox O2 O2 Flow FiO2 Time Delivery Rate 04/27/18 98.1 102 19 122/70 97 Room Air 19:09 (87) 04/27/18 96.7 88 17 127/75 98 15:03 (92) Physical Exam GENERAL: Well-developed, appears dehydrated, nauseous, afebrile HEENT: Dry mucous membranes, pink conjunctiva, no cervical spine tenderness or step-off deformities, no goiter, no jaundice or icterus, extraocular movements i ntact without pain. No submandibular induration, and no pharyngeal erythema NEURO: Alert and oriented 3, cranial nerves II through XII intact bilaterally, pupils equal round reactive to light, no focal deficits or facial asymmetry, sensation intact distally Strength 5/5 in upper and lower extremities bilaterally CARDIAC: Regular rate and rhythm, no murmurs rubs or gallops LUNGS: Clear bilaterally no wheezing crackles or stridor ABDOMEN: Soft nontender, no guarding, no rigidity, no rebound, no psoas sign no obturator sign. Normoactive bowel sounds SKIN: Warm and dry to touch, no abrasions, contusions, or hematomas, no lacerations, no ecchymosis, no target lesions, and without ulcers EXTREMITIES: No clubbing cyanosis or edema, calves are bilaterally symmetrical, no Homans sign, no popliteal cord sign. Distal pulses equal and bilateral PSYCH: Normal affect without agitation or irritability Result Diagram: 04/28/18 0439 04/28/18 0439 Results 24 hrs Laboratory Tests Test 04/27/18 16:08 04/27/18 17:55 White Blood Count 10.3 10^3/ul Red Blood Count 4.57 10^6/ul Hemoglobin 13.8 g/dl Hematocrit 41.5 % Mean Corpuscular Volume 90.8 fl Mean Corpuscular Hemoglobin 30.2 pg Mean Corpuscular Hemoglobin Concent 33.3 g/dl Red Cell Distribution Width 14.6 % Platelet Count 358 10^3/UL Mean Platelet Volume 8.8 fl Immature Granulocytes % 0.300 % Neutrophils % 58.6 % Lymphocytes % 29.1 % Monocytes % 9.5 % Eosinophils % 2.1 % Basophils % 0.4 % Nucleated Red Blood Cells % 0.0 /100WBC Immature Granulocytes # 0.030 10^3/ul Neutrophils # 6.0 10^3/ul Lymphocytes # 3.0 10^3/ul Monocytes # 1.0 10^3/ul Eosinophils # 0.2 10^3/ul Basophils # 0.0 10^3/ul Nucleated Red Blood Cells # 0.0 10^3/ul Sodium Level 139 mmol/L Potassium Level 3.8 mmol/L Chloride Level 105 mmol/L Carbon Dioxide Level 24 mmol/L Anion Gap 10 Blood Urea Nitrogen 11 mg/dl Creatinine 0.77 mg/dl Est Glomerular Filtrat Rate mL/min > 60 mL/min Glucose Level 94 mg/dl Calcium Level 9.7 mg/dl Total Bilirubin 0.3 mg/dl Direct Bilirubin 0.00 mg/dl Indirect Bilirubin 0.3 mg/dl Aspartate Amino Transf (AST/SGOT) 29 IU/L Alanine Aminotransferase (ALT/SGPT) 10 IU/L Alkaline Phosphatase 95 IU/L Troponin I < 0.012 ng/ml Total Protein 6.8 g/dl Albumin 3.7 g/dl Globulin 3.10 g/dl Albumin/Globulin Ratio 1.19 Lipase 53 U/L Urine Color YELLOW Urine Clarity TURBID Urine pH 6.0 Urine Specific [place] 1.010 Urine Ketones 1+ mg/dL Urine Nitrite POSITIVE mg/dL Urine Bilirubin NEGATIVE mg/dL Urine Urobilinogen NEGATIVE mg/dL Urine Leukocyte Esterase 3+ [place]/ul Urine Microscopic RBC 108 /HPF Urine Microscopic WBC > 182 /HPF Urine Squamous Epithelial Cells FEW /HPF Urine Bacteria FEW /HPF Urine Mucus FEW /HPF Urine Hemoglobin 1+ mg/dL Urine Glucose NEGATIVE mg/dL Urine Total Protein NEGATIVE mg/dl Current Medications Medications Dose Sig/Viraj Start Time Status Last (Trade) Ordered Route PRN Stop Time Admin Dose Reason Admin Sodium 1,000 ml @ Q1H STAT 04/27/18 DC 04/27/18 Chloride 1,000 mls/hr IV 15:45 16:42 04/27/18 16:44 Ondansetron 4 mg ONCE STAT 04/27/18 DC 04/27/18 HCl (Zofran IV 15:45 16:42 Inj) 04/27/18 15:46 40 ml ONCE STAT 04/27/18 DC 04/27/18 Miscellaneous PO 15:45 16:42 Medication 04/27/18 15:46 (Gi Cocktail (2)) [place]/ 2 tab ONCE STAT 04/27/18 DC 04/27/18 Phenobarbital PO 15:45 16:41 () 04/27/18 15:46 Ceftriaxone 50 ml @ ONCE ONCE 04/27/18 DC 04/27/18 Sodium 100 mls/hr IVPB 16:30 16:42 04/27/18 16:59 Procedures/MDM IV line was established patient was placed on alarm security or surveillance monitor rhythm strip revealed a sinus rhythm at about 80 bpm with upright P and T waves. Patient was afebrile EKG performed, read by me revealed a normal sinus rhythm at 89 bpm, left axis deviation, narrow QRS complex, no concerning ST elevations or depressions noted CT scan of the abdomen and pelvis was performed, IMPRESSION: 1. No evidence of acute inflammatory process in the abdomen or pelvis. 2. Status post cholecystectomy. 3. Nonobstructing left renal calculus. 4. 2 cm simple appearing left renal cyst. 5. Atherosclerosis. 6. Degenerative changes of the spine. Old compression fractures of T12 and L1. 7. Bilateral total hip arthroplasties. 8. Bronchial wall thickening bilaterally in the lower lobes consistent with bronchitis. I administered 1 L normal saline IV for dehydration, Zofran 4 mg IV, GI cocktail p.o. For continued nausea and vomiting I later administered metoclopramide 10 mg IV x1. CBC and electrolytes were unremarkable, liver function tests normal, troponin negative, urinalysis positive for infection Patient admitted to [facility] Departure Diagnosis: Primary Impression: Vomiting Vomiting type: unspecified Vomiting Intractability: intractable Nausea presence: with nausea Qualified Codes: R11.2 - Nausea with vomiting, unspecified Additional Impressions: Dehydration Acute UTI Condition: LUZMARIA Donnelly MD Apr 27, 2018 16:31
[2018-04-27] MEDS ORDERED: IPRA3AMP29 INHALATION (17:19)
[2018-04-27] MEDS ORDERED: NORT10CA2 PO (17:20)
[2018-04-27] MEDS ORDERED: LORA0.5T PO (17:21)
[2018-04-27] MEDS ORDERED: OXYC-431 PO (17:21)
[2018-04-27] MEDS ORDERED: ASPI-817 PO (17:22)
[2018-04-27] MEDS ORDERED: CRAN400C PO (19:16)
[2018-04-27] MEDS ORDERED: MET25 PO (19:17)
[2018-04-27] MEDS ORDERED: MELA10CA PO (19:18)
[2018-04-27] MEDS ORDERED: LACT1CAP47 PO (19:19)
[2018-04-27] MEDS ORDERED: DIPH-444 PO (19:19)
[2018-04-27] MEDS ORDERED: [UNRECOGNIZED DRUG - CODE] TP (19:20)
[2018-04-27] MEDS ORDERED: ALBUTEROL 0.083% (NEB) 2.5 MG/3 ML AMP HHN STA (19:29)
[2018-04-27] MEDS ORDERED: NACL 0.9% 3 ML SYG IV SCH (19:30)
[2018-04-27] MEDS ORDERED: ACETAMINOPHEN 325 MG TAB PO PRN (19:30)
[2018-04-27] MEDS ORDERED: NA PHOSPHATE/BIPHOS 133 ML ENEMA PR PRN (19:30)
[2018-04-27] MEDS ORDERED: METOCLOPRAMIDE 10 MG INJ IV ONE (19:30)
[2018-04-27] MEDS: GABAPENTIN 300 MG CAP PO SCH (21:00)
[2018-04-27 21:08] VITALS: BP 131/72; PULSE 102; RESP 18
[2018-04-27 21:17] VITALS: Ht 165.1 cm; Wt 69.5 kg
[2018-04-27] MEDS: NORTRIPTYLINE 10 MG CAP PO SCH (22:30)
[2018-04-27] MEDS ORDERED: METHOTREXATE 2.5 MG TAB PO SCH (22:30)
[2018-04-27] MEDS: ONDANSETRON 4 MG INJ IV PRN (22:53)
[2018-04-27] MEDS: MONTELUKAST 10 MG TAB PO SCH (22:53)
[2018-04-27] MEDS: CHOLECALCIFEROL 1,000 UNIT TAB PO SCH (22:53)
[2018-04-27] MEDS: ATORVASTATIN 40 MG TAB PO SCH (22:53)
[2018-04-27] MEDS: OXYCODONE/ACETAMINOPHEN (10/325) TAB PO PRN (22:54)
[2018-04-27] MEDS: ZOLPIDEM 5 MG TAB PO PRN (22:54)
[2018-04-27] MEDS: METHOTREXATE 2.5 MG TAB PO SCH (23:52)
[2018-04-28 01:57] VITALS: BP 144/96; PULSE 92; RESP 18
[2018-04-28] MEDS: ONDANSETRON 4 MG INJ IV PRN ×2 (03:21→15:38)
[2018-04-28] MEDS: D5W-0.45 NACL + KCL 20 MEQ 1,000 ML IV SCH ×5 (03:24→20:59)
[2018-04-28] MEDS: ALBUTEROL/IPRATROPIUM (NEB) 3 ML AMP HHN PRN ×3 (05:02→17:52)
[2018-04-28] MEDS: METOCLOPRAMIDE 10 MG INJ IV PRN ×2 (06:40→20:59)
[2018-04-28] MEDS: GABAPENTIN 100 MG CAP PO SCH ×2 (06:41→11:30)
[2018-04-28] MEDS: LEVOTHYROXINE 88 MCG TAB PO SCH (06:41)
[2018-04-28] MEDS: PANTOPRAZOLE (EC) 40 MG TAB PO SCH (06:41)
[2018-04-28] MEDS: OXYCODONE/ACETAMINOPHEN (10/325) TAB PO PRN ×2 (06:41→20:59)
[2018-04-28 07:24] VITALS: BP 113/53; PULSE 75; RESP 16
[2018-04-28] MEDS: ASPIRIN (EC) 81 MG TAB PO SCH (08:44)
[2018-04-28] MEDS: CHOLECALCIFEROL 1,000 UNIT TAB PO SCH ×2 (08:44→20:57)
[2018-04-28] MEDS: FOLIC ACID 1 MG TAB PO SCH (08:45)
[2018-04-28] MEDS: METOPROLOL 25 MG TAB PO SCH (08:45)
[2018-04-28] MEDS: ENOXAPARIN 30 MG/0.3 ML SYG SC SCH ×2 (08:46→08:53)
[2018-04-28] MEDS: CEFTRIAXONE 2 GM/NS 50 ML IVPB SCH (08:47)
[2018-04-28] MEDS: NORTRIPTYLINE 10 MG CAP PO SCH (08:47)
[2018-04-28] MEDS ORDERED: CEFTRIAXONE 2 GM INJ IVPB SCH (09:00)
--- NOTE | 2018-04-28 13:41 | HP ---
Date/Time of Note Date/Time of Note DATE: 04/28/18 TIME: 13:26 Assessment/Plan VTE Prophylaxis Risk score (from Nsg)>0 risk: 8 SCD applied (from Ns): Yes Pharmacological prophylaxis: LMWH Lines/Catheters IV Catheter Type (from Nrsg): Mid Line Assessment/Plan Problems: (1) Intractable vomiting Status: Resolved Comment: Pt. still w/ some nausea but has been able to take some food. Cont. IV hydration. Cont. IV ondansetron and metoclopramide as needed. Monitor for full improvement. (2) UTI (urinary tract infection) Status: Acute Comment: On ceftriaxone. Pt. w/ recent courses of antibiotics so probably best to wait for culture results before d/c'ing this pt. home. Cont. rocephin until C&S established. (3) Rheumatoid arthritis Status: Chronic Comment: Cont. methotrexate weekly (4) Asthma-COPD overlap syndrome Status: Chronic Comment: Cont. duoneb as needed and montelukast daily (5) Essential hypertension Status: Chronic Comment: Cont. metoprolol and monitor BP. (6) Hyperlipidemia Status: Chronic Comment: Cont. statin daily (7) Acquired hypothyroidism Status: Chronic Comment: Cont. LT4 daily (8) Chronic pain syndrome Status: Chronic Comment: Cont. opiate therapy (1 mg dilaudid while not taking po, then switch back to home percocet when taking po), gabapentin. (9) Persistent disorder of initiating or maintaining sleep Status: Chronic Comment: Cont. zolpidem prn (10) Do not resuscitate Status: Chronic Comment: Pt. expresses desire to be DNR. This may stem from underlying mood disorder but pt. not asking for any therapy. Will change code status for now and urge pt. to d/w social work and look at forms on line to have notarized to change code status permanently. Result Diagram: 04/28/18 0439 04/28/18 0439 Results 24hrs Laboratory Tests Test 04/27/18 16:08 04/27/18 17:55 04/28/18 04:39 White Blood Count 10.3 9.5 Red Blood Count 4.57 4.04 L Hemoglobin 13.8 12.3 Hematocrit 41.5 37.8 Mean Corpuscular Volume 90.8 93.6 Mean Corpuscular Hemoglobin 30.2 30.4 Mean Corpuscular Hemoglobin Concent 33.3 32.5 Red Cell Distribution Width 14.6 H 14.6 H Platelet Count 358 # 316 Mean Platelet Volume 8.8 9.2 Immature Granulocytes % 0.300 0.300 Neutrophils % 58.6 55.4 Lymphocytes % 29.1 30.5 Monocytes % 9.5 11.3 H Eosinophils % 2.1 1.9 Basophils % 0.4 0.6 Nucleated Red Blood Cells % 0.0 0.0 Immature Granulocytes # 0.030 0.030 Neutrophils # 6.0 5.2 Lymphocytes # 3.0 H 2.9 Monocytes # 1.0 H 1.1 H Eosinophils # 0.2 0.2 Basophils # 0.0 0.1 Nucleated Red Blood Cells # 0.0 0.0 Sodium Level 139 141 Potassium Level 3.8 3.6 Chloride Level 105 105 Carbon Dioxide Level 24 28 Anion Gap 10 8 Blood Urea Nitrogen 11 9 Creatinine 0.77 0.80 Est Glomerular Filtrat Rate mL/min > 60 > 60 Glucose Level 94 129 Calcium Level 9.7 8.9 Total Bilirubin 0.3 Direct Bilirubin 0.00 Indirect Bilirubin 0.3 Aspartate Amino Transf (AST/SGOT) 29 Alanine Aminotransferase (ALT/SGPT) 10 L Alkaline Phosphatase 95 Troponin I < 0.012 Total Protein 6.8 Albumin 3.7 Globulin 3.10 Albumin/Globulin Ratio 1.19 Lipase 53 Urine Color YELLOW Urine Clarity TURBID A Urine pH 6.0 Urine Specific [place] 1.010 Urine Ketones 1+ H Urine Nitrite POSITIVE A Urine Bilirubin NEGATIVE Urine Urobilinogen NEGATIVE Urine Leukocyte Esterase 3+ H Urine Microscopic RBC 108 H Urine Microscopic WBC > 182 H Urine Squamous Epithelial Cells FEW Urine Bacteria FEW A Urine Mucus FEW A Urine Hemoglobin 1+ H Urine Glucose NEGATIVE Urine Total Protein NEGATIVE Hemoglobin A1c 4.9 Phosphorus Level 2.8 Magnesium Level 1.9 HPI/ROS Admit Date/Time Admit Date/Time Apr 27, 2018 at 19:25 Hx of Present Illness 72 y/o C F w/ h/o RA, osteoporosis w/ lumbar crush fractures, chronic pain syndrome due to these, HTN, hyperlipidemia, COPD/asthma, BrCA, hypothyroidism, diastolic dysfunction, and insomnia s/p recent admit 1 m. ago for chest pain. Was in [facility] until 8 days ago when she saw her pain management doctor who added nortriptyline 10 mg bid. Pt. took 3 doses and became very ill w/ nausea and vomiting. Stopped med but N/V continued. Yesterday became intractable and came to [facility]. Found to be stable from standpoint of vitals and labs but also found to have UTI on UA. Admitted. Pt. expresses desire to be DNR. ROS Constitutional: no complaints, improved, poor po Eyes: no complaints ENT: no complaints Respiratory: no complaints Cardiovascular: no complaints Gastrointestinal: decreased appetite, nausea (improved but persistent. Does not yet feel normal), vomiting (stopped last night) Genitourinary: no complaints Musculoskeletal: back pain, bone/joint pain Neurologic: no complaints Psychological: depression (wanted to yesterday) PMH/Family/Social Past Medical History Medical History: cancer (breast), high cholesterol, hypertension, hypothyroid, other (COPD/asthma, RA, chronic pain syndrome, osteoporosis) Medications Current Medications Aspirin (Halfprin) 81 mg DAILY PO Last administered on 04/28/18 08:44; Admin Dose 81 MG; Start 04/28/18 at 09:00 Cholecalciferol (Vitamin D) 1,000 unit BID PO Last administered on 04/28/18 08:44; Admin Dose 1,000 UNIT; Start 04/27/18 at 21:00 Folic Acid (Folic Acid) 1 mg DAILY PO Last administered on 04/28/18 08:45; Admin Dose 1 MG; Start 04/28/18 at 09:00 Albuterol/ Ipratropium (Duoneb) 3 ml Q6H RESP THERAPY PRN HHN WHEEZING AND SOB Last administered on 04/28/18 11:33; Admin Dose 3 ML; Start 04/27/18 at 19:30 Levothyroxine Sodium (Synthroid) 88 mcg BEFORE BREAKFAST PO Last administered on 04/28/18 06:41; Admin Dose 88 MCG; Start 04/28/18 at 07:00 Lorazepam (Ativan) 0.5 mg Q6 PRN PO ANXIETY; Start 04/27/18 at 19:30 Metoprolol Tartrate (Lopressor) 25 mg DAILY PO Last administered on 04/28/18 08:45; Admin Dose 25 MG; Start 04/28/18 at 09:00 Montelukast Sodium (Singulair) 10 mg QHS PO Last administered on 2/21/19at 22:53; Admin Dose 10 MG; Start 04/27/18 at 21:00 Nortriptyline HCl (Aventyl) 10 mg BID PO ; Start 04/27/18 at 22:30 Oxycodone/ Acetaminophen (Endocet (10/ 325)) 1 tab Q6 PRN PO SEVERE PAIN LEVEL 7-10 Last administered on 04/28/18at 06:41; Admin Dose 1 TAB; Start 04/27/18 at 19:30 Pantoprazole (Protonix Tab) 40 mg DAILY@0600 PO Last administered on 04/28/18at 06:41; Admin Dose 40 MG; Start 04/28/18 at 06:00 Atorvastatin Calcium (Lipitor) 40 mg QPM PO Last administered on 04/27/18at 22:53; Admin Dose 40 MG; Start 04/27/18 at 21:00 Gabapentin (Neurontin) 600 mg QHS PO ; Start 04/27/18 at 21:00 Gabapentin (Neurontin) 100 mg AC BREAKFAST LUNCH PO ; Start 04/28/18 at 07:00 Potassium Chloride/Dextrose/ Sod Cl 1,000 ml @ 125 mls/hr Q8H IV Last administered on 04/28/18at 11:53; Admin Dose 125 MLS/HR; Start 04/27/18 at 21:30 IV Flush (NS 3 ml) 3 ml PER PROTOCOL IV ; Start 04/27/18 at 19:30 Ondansetron HCl (Zofran Inj) 4 mg Q6H PRN IV NAUSEA/VOMITING Last administered on 04/28/18at 03:21; Admin Dose 4 MG; Start 04/27/18 at 19:30 Metoclopramide HCl (Reglan) 10 mg Q6H PRN IV NAUSEA/VOMITING Last administered on 04/28/18at 06:40; Admin Dose 10 MG; Start 04/27/18 at 19:30 Acetaminophen (Tylenol Tab) 650 mg Q6H PRN PO .PAIN 1-3 OR TEMP; Start 04/27/18 at 19:30 Docusate Sodium (Colace) 100 mg Q12H PRN PO .CONSTIPATION; Start 04/27/18 at 19:30 Bisacodyl (Dulcolax) 5 mg DAILY PRN PO .CONSTIPATION; Start 04/27/18 at 19:30 Sodium Biphosphate/ Sodium Phosphate (Fleet Enema) 133 ml DAILY PRN OK .CONSTIPATION; Start 04/27/18 at 19:30 Zolpidem Tartrate (Ambien) 5 mg QHS PRN PO .INSOMNIA Last administered on 04/27/18at 22:54; Admin Dose 5 MG; Start 04/27/18 at 19:30 Enoxaparin Sodium (Lovenox) 30 mg DAILY SC ; Start 04/28/18 at 09:00 Hydromorphone HCl (Dilaudid) 1 mg Q4H PRN IV SEVERE PAIN LEVEL 7-10; Start 04/08 03/25 at 21:30 Ceftriaxone Sodium 50 ml @ 100 mls/hr Q24H IVPB Last administered on 04/28/18at 08:47; Admin Dose 100 MLS/HR; Start 04/28/18 at 09:00 Methotrexate (Methotrexate) 20 mg Th@0900 PO Last administered on 04/27/18at 23:52; Admin Dose 20 MG; Start 04/27/18 at 23:00 Coded Allergies: No Known Drug Allergies (Verified Allergy, Unknown, 03/20/18) Past Surgical History Past Surgical Hx: appendectomy, other (Status post right total hip replacement; status post right total knee replacement; status post left total hip replacement; status post right breast lumpectomy) Family History Significant Family History: cancer (breast), diabetes, hypertension, lung disease, other (RA) Social History Alcohol Use: none Smoking Status: Former smoker Drug Use: none Exam/Review of Systems Vital Signs Vitals VS - Last 72 Hours, by Label Date Temp Pulse Resp B/P (MAP) Pulse Ox O2 O2 Flow FiO2 Time Delivery Rate 04/28/18 72 18 99 Nasal 2.0 11:34 Cannula 04/28/18 98.2 75 16 113/53 99 07:24 (73) 04/28/18 82 20 99 Nasal 2.0 05:02 Cannula 04/28/18 98.8 92 18 144/96 100 01:57 (112) 04/28/18 Nasal 2.0 01:26 Cannula 04/28/18 2.0 00:03 04/27/18 93 2.0 22:00 04/27/18 97.8 102 18 131/72 99 21:08 (91) 04/27/18 98.1 88 20 128/72 100 Nasal 20:31 (90) Cannula 04/27/18 99 3.0 20:10 04/27/18 93 24 99 Nasal 3.0 20:10 Cannula 04/27/18 98.1 103 16 122/78 97 Nasal 19:49 (93) Cannula 04/27/18 98.1 102 19 122/70 97 Room Air 19:09 (87) 04/27/18 96.7 88 17 127/75 98 15:03 (92) Vital Signs Date Temp Pulse Resp B/P (MAP) Pulse Ox O2 O2 Flow FiO2 Time Delivery Rate 04/28/18 72 18 99 Nasal 2.0 11:34 Cannula 04/28/18 98.2 113/53 07:24 (73) Intake and Output 04/27/18 04/27/18 04/28/18 1515:00 23:00 07:00 IntakeIntake Total 480 ml BalanceBalance 480 ml Exam Constitutional: alert, oriented, frail Psych: depression Eyes: nl conjunctiva, EOMI, nl lids, nl sclera, PERRL ENMT: nl external ears & nose, mucosa pink and moist Neck: supple, non-tender; No bruits, No masses, No thyromegaly Respiratory: clear to auscultation, normal air movement Cardiovascular: regular rate and rhythm, nl pulses; No edema, No murmurs/extra sounds, No rub Gastrointestinal: soft, nl liver, spleen, non-tender, bowel sounds; No mass, No rebound or guarding Musculoskeletal: nl extremities to inspection Extremities: normal pulses; No cyanosis, No clubbing, No edema Neurological: OYSTER SHIPPER II-XII intact, nl mental status, nl speech, nl strength JAMIE PATTON MD Apr 28, 2018 13:36
[2018-04-28 14:40] VITALS: BP 129/58; PULSE 71; RESP 16
[2018-04-28] MEDS: HYDROmorphONE 1 MG/ML SYG IV PRN (15:48)
[2018-04-28 19:50] VITALS: BP 108/56; PULSE 73; RESP 16
[2018-04-28] MEDS: ATORVASTATIN 40 MG TAB PO SCH (20:56)
[2018-04-28] MEDS: MONTELUKAST 10 MG TAB PO SCH (20:56)
[2018-04-28] MEDS: ZOLPIDEM 5 MG TAB PO PRN (20:59)
[2018-04-28] MEDS: GABAPENTIN 300 MG CAP PO SCH (21:00)
[2018-04-28] MEDS: LORAZEPAM 0.5 MG TAB PO PRN (22:24)
[2018-04-29] MEDS: ALBUTEROL/IPRATROPIUM (NEB) 3 ML AMP HHN PRN ×4 (00:24→19:36)
[2018-04-29 01:14] VITALS: BP 113/56; PULSE 76; RESP 16
[2018-04-29] MEDS: D5W-0.45 NACL + KCL 20 MEQ 1,000 ML IV SCH ×4 (05:11→22:22)
[2018-04-29] MEDS: HYDROmorphONE 1 MG/ML SYG IV PRN ×3 (05:11→21:07)
[2018-04-29] MEDS: ONDANSETRON 4 MG INJ IV PRN ×2 (05:13→14:22)
[2018-04-29] MEDS: GABAPENTIN 100 MG CAP PO SCH ×2 (05:21→11:20)
[2018-04-29] MEDS: PANTOPRAZOLE (EC) 40 MG TAB PO SCH (05:21)
[2018-04-29] MEDS: LEVOTHYROXINE 88 MCG TAB PO SCH (06:33)
[2018-04-29] MEDS: OXYCODONE/ACETAMINOPHEN (10/325) TAB PO PRN ×2 (06:33→22:22)
[2018-04-29 07:36] VITALS: BP 127/77; PULSE 76; RESP 16
[2018-04-29] MEDS: CHOLECALCIFEROL 1,000 UNIT TAB PO SCH ×2 (08:46→21:08)
[2018-04-29] MEDS: METOPROLOL 25 MG TAB PO SCH (08:47)
[2018-04-29] MEDS: FOLIC ACID 1 MG TAB PO SCH (08:47)
[2018-04-29] MEDS: ASPIRIN (EC) 81 MG TAB PO SCH (08:47)
[2018-04-29] MEDS: ENOXAPARIN 30 MG/0.3 ML SYG SC SCH (08:48)
[2018-04-29] MEDS: CEFTRIAXONE 2 GM/NS 50 ML IVPB SCH (09:53)
[2018-04-29 14:31] VITALS: BP 117/57; PULSE 72; RESP 16
--- NOTE | 2018-04-29 16:26 | PN ---
Date/Time of Note Date/Time of Note DATE: 04/29/18 TIME: 16:20 Assessment/Plan VTE Prophylaxis Risk score (from Ns)>0 risk: 6 SCD applied (from Ns): Yes Pharmacological prophylaxis: NA/contraindicated Pharm contraindication: low risk/ambulating Lines/Catheters IV Catheter Type (from [facility]): Mid Line Assessment/Plan Problems: (1) Acute UTI Status: Acute Comment: On antibiotics. Culture indeterminate. Will send repeat UA to see if evidence of infection resolved. (2) Intractable vomiting Status: Resolved Comment: Still with nausea, but intractable nausea resolved. Cont Hosp Indication/DC Plan: plan for probable discharge tomorrow. Result Diagram: 04/29/1852104/29/18521 Results 24hrs Laboratory Tests Test 04/29/18 05:22 White Blood Count 7.5 # Red Blood Count 4.17 L Hemoglobin 12.6 Hematocrit 39.2 Mean Corpuscular Volume 94.0 Mean Corpuscular Hemoglobin 30.2 Mean Corpuscular Hemoglobin Concent 32.1 Red Cell Distribution Width 14.4 Platelet Count 326 Mean Platelet Volume 9.6 Immature Granulocytes % 0.400 Neutrophils % 56.0 Lymphocytes % 27.5 Monocytes % 11.9 H Eosinophils % 3.4 Basophils % 0.8 Nucleated Red Blood Cells % 0.0 Immature Granulocytes # 0.030 Neutrophils # 4.2 Lymphocytes # 2.1 Monocytes # 0.9 Eosinophils # 0.3 Basophils # 0.1 Nucleated Red Blood Cells # 0.0 Sodium Level 143 Potassium Level 4.0 Chloride Level 109 Carbon Dioxide Level 29 Anion Gap 5 Blood Urea Nitrogen 4 L Creatinine 0.64 Est Glomerular Filtrat Rate mL/min > 60 Glucose Level 97 Calcium Level 9.3 Subjective 24 Hr Interval Summary Free Text/Dictation Still with nausea requiring Zofran but improved. PO intake fair. Exam/Review of Systems Exam Vitals Vital Signs Date Temp Pulse Resp B/P (MAP) Pulse Ox O2 O2 Flow FiO2 Time Delivery Rate 04/29/18 98.2 72 16 117/57 98 14:31 (77) 04/29/18 2.0 28 13:47 04/29/18 Nasal 13:47 Cannula Intake and Output 04/28/18 04/28/18 04/29/18 1515:00 23:00 07:00 IntakeIntake Total 2009 ml 1000 ml 1600 ml BalanceBalance 2010 ml 1000 ml 1600 ml Constitutional: alert, oriented, well developed Neck: supple Respiratory: clear to auscultation Cardiovascular: regular rate and rhythm Gastrointestinal: soft Extremities: normal pulses, edema (none) Results Results 24hrs Laboratory Tests Test 04/29/18 05:22 White Blood Count 7.5 # Red Blood Count 4.17 L Hemoglobin 12.6 Hematocrit 39.2 Mean Corpuscular Volume 94.0 Mean Corpuscular Hemoglobin 30.2 Mean Corpuscular Hemoglobin Concent 32.1 Red Cell Distribution Width 14.4 Platelet Count 326 Mean Platelet Volume 9.6 Immature Granulocytes % 0.400 Neutrophils % 56.0 Lymphocytes % 27.5 Monocytes % 11.9 H Eosinophils % 3.4 Basophils % 0.8 Nucleated Red Blood Cells % 0.0 Immature Granulocytes # 0.030 Neutrophils # 4.2 Lymphocytes # 2.1 Monocytes # 0.9 Eosinophils # 0.3 Basophils # 0.1 Nucleated Red Blood Cells # 0.0 Sodium Level 143 Potassium Level 4.0 Chloride Level 109 Carbon Dioxide Level 29 Anion Gap 5 Blood Urea Nitrogen 4 L Creatinine 0.64 Est Glomerular Filtrat Rate mL/min > 60 Glucose Level 97 Calcium Level 9.3 Medications Medication Current Medications Aspirin (Halfprin) 81 mg DAILY PO Last administered on 04/29/18 08:47; Admin Dose 81 MG; Start 04/28/18 at 09:00 Cholecalciferol (Vitamin D) 1,000 unit BID PO Last administered on 04/29/18 08:46; Admin Dose 1,000 UNIT; Start 04/27/18 at 21:00 Folic Acid (Folic Acid) 1 mg DAILY PO Last administered on 04/29/18 08:47; Admin Dose 1 MG; Start 04/28/18 at 09:00 Albuterol/ Ipratropium (Duoneb) 3 ml Q6H RESP THERAPY PRN HHN WHEEZING AND SOB Last administered on 04/29/18 13:47; Admin Dose 3 ML; Start 04/27/18 at 19:30 Levothyroxine Sodium (Synthroid) 88 mcg BEFORE BREAKFAST PO Last administered on 04/29/18 06:33; Admin Dose 88 MCG; Start 04/28/18 at 07:00 Lorazepam (Ativan) 0.5 mg Q6 PRN PO ANXIETY Last administered on 2/22/19at 22:24; Admin Dose 0.5 MG; Start 04/27/18 at 19:30 Metoprolol Tartrate (Lopressor) 25 mg DAILY PO Last administered on 04/29/18 08:47; Admin Dose 25 MG; Start 04/28/18 at 09:00 Montelukast Sodium (Singulair) 10 mg QHS PO Last administered on 04/28/18 20:56; Admin Dose 10 MG; Start 04/27/18 at 21:00 Oxycodone/ Acetaminophen (Endocet (10/ 325)) 1 tab Q6 PRN PO SEVERE PAIN LEVEL 7-10 Last administered on 04/29/18 06:33; Admin Dose 1 TAB; Start 04/27/18 at 19:30 Pantoprazole (Protonix Tab) 40 mg DAILY@0600 PO Last administered on 04/29/18 05:21; Admin Dose 40 MG; Start 04/28/18 at 06:00 Atorvastatin Calcium (Lipitor) 40 mg QPM PO Last administered on 04/28/18 20:56; Admin Dose 40 MG; Start 04/27/18 at 21:00 Gabapentin (Neurontin) 600 mg QHS PO ; Start 04/27/18 at 21:00 Gabapentin (Neurontin) 100 mg AC BREAKFAST LUNCH PO Last administered on 04/29/18 05:21; Admin Dose 100 MG; Start 04/28/18 at 07:00 Potassium Chloride/Dextrose/ Sod Cl 1,000 ml @ 125 mls/hr Q8H IV Last administered on 04/29/18 14:24; Admin Dose 125 MLS/HR; Start 04/27/18 at 21:30 IV Flush (NS 3 ml) 3 ml PER PROTOCOL IV ; Start 04/27/18 at 19:30 Ondansetron HCl (Zofran Inj) 4 mg Q6H PRN IV NAUSEA/VOMITING Last administered on 04/29/18 14:22; Admin Dose 4 MG; Start 04/27/18 at 19:30 Metoclopramide HCl (Reglan) 10 mg Q6H PRN IV NAUSEA/VOMITING Last administered on 04/28/18 20:59; Admin Dose 10 MG; Start 04/27/18 at 19:30 Acetaminophen (Tylenol Tab) 650 mg Q6H PRN PO .PAIN 1-3 OR TEMP; Start 04/27/18 at 19:30 Docusate Sodium (Colace) 100 mg Q12H PRN PO .CONSTIPATION; Start 04/27/18 at 19:30 Bisacodyl (Dulcolax) 5 mg DAILY PRN PO .CONSTIPATION; Start 04/27/18 at 19:30 Sodium Biphosphate/ Sodium Phosphate (Fleet Enema) 133 ml DAILY PRN [place] .CONSTIPATION; Start 04/27/18 at 19:30 Zolpidem Tartrate (Ambien) 5 mg QHS PRN PO .INSOMNIA Last administered on 04/28/18at 20:59; Admin Dose 5 MG; Start 04/27/18 at 19:30 Enoxaparin Sodium (Lovenox) 30 mg DAILY SC ; Start 04/28/18 at 09:00 Hydromorphone HCl (Dilaudid) 1 mg Q4H PRN IV SEVERE PAIN LEVEL 7-10 Last administered on 04/29/18at 14:23; Admin Dose 1 MG; Start 04/27/18 at 21:30 Ceftriaxone Sodium 50 ml @ 100 mls/hr Q24H IVPB Last administered on 04/29/18at 09:53; Admin Dose 100 MLS/HR; Start 04/28/18 at 09:00 Methotrexate (Methotrexate) 20 mg Th@0900 PO Last administered on 04/27/18at 23:52; Admin Dose 20 MG; Start 04/27/18 at 23:00 SONY BOURNE MD Apr 29, 2018 16:26
[2018-04-29 19:56] VITALS: BP 129/65; PULSE 75; RESP 18
[2018-04-29] MEDS: GABAPENTIN 300 MG CAP PO SCH (21:00)
[2018-04-29] MEDS: LORAZEPAM 0.5 MG TAB PO PRN (21:08)
[2018-04-29] MEDS: ATORVASTATIN 40 MG TAB PO SCH (21:08)
[2018-04-29] MEDS: MONTELUKAST 10 MG TAB PO SCH (21:08)
[2018-04-29] MEDS: METOCLOPRAMIDE 10 MG INJ IV PRN (21:08)
[2018-04-29] MEDS: ZOLPIDEM 5 MG TAB PO PRN (22:22)
[2018-04-30] MEDS: ALBUTEROL/IPRATROPIUM (NEB) 3 ML AMP HHN PRN ×3 (01:18→13:13)
[2018-04-30 01:57] VITALS: BP 115/58; PULSE 75; RESP 18
[2018-04-30] MEDS: LORAZEPAM 0.5 MG TAB PO PRN (04:21)
[2018-04-30] MEDS: DOCUSATE SODIUM 100 MG CAP PO PRN (06:05)
[2018-04-30] MEDS: OXYCODONE/ACETAMINOPHEN (10/325) TAB PO PRN ×2 (06:05→22:36)
[2018-04-30] MEDS: D5W-0.45 NACL + KCL 20 MEQ 1,000 ML IV SCH ×5 (06:05→22:46)
[2018-04-30] MEDS: LEVOTHYROXINE 88 MCG TAB PO SCH (06:05)
[2018-04-30] MEDS: PANTOPRAZOLE (EC) 40 MG TAB PO SCH (06:05)
[2018-04-30] MEDS: GABAPENTIN 100 MG CAP PO SCH ×2 (07:00→10:47)
[2018-04-30 07:41] VITALS: BP 122/61; PULSE 72; RESP 16
[2018-04-30] MEDS: METOPROLOL 25 MG TAB PO SCH (08:43)
[2018-04-30] MEDS: FOLIC ACID 1 MG TAB PO SCH (08:43)
[2018-04-30] MEDS: ASPIRIN (EC) 81 MG TAB PO SCH (08:43)
[2018-04-30] MEDS: CHOLECALCIFEROL 1,000 UNIT TAB PO SCH ×2 (08:43→21:24)
[2018-04-30] MEDS: ENOXAPARIN 30 MG/0.3 ML SYG SC SCH (08:46)
[2018-04-30] MEDS: CEFTRIAXONE 2 GM/NS 50 ML IVPB SCH (08:46)
[2018-04-30] MEDS: HYDROmorphONE 1 MG/ML SYG IV PRN ×3 (12:48→20:48)
[2018-04-30 14:11] VITALS: BP 132/67; PULSE 74; RESP 16
[2018-04-30] MEDS: ALBUTEROL/IPRATROPIUM (NEB) 3 ML AMP HHN SCH ×3 (18:34→22:24)
[2018-04-30 20:00] VITALS: BP 140/66; PULSE 74; RESP 18
[2018-04-30] MEDS: ONDANSETRON 4 MG INJ IV PRN (20:46)
[2018-04-30] MEDS: GABAPENTIN 300 MG CAP PO SCH (21:00)
[2018-04-30] MEDS: MONTELUKAST 10 MG TAB PO SCH (21:24)
[2018-04-30] MEDS: ATORVASTATIN 40 MG TAB PO SCH (21:25)
[2018-04-30] MEDS: ZOLPIDEM 5 MG TAB PO PRN (22:06)
[2018-05-01] MEDS: HYDROmorphONE 1 MG/ML SYG IV PRN ×6 (00:52→22:29)
[2018-05-01] MEDS: ALBUTEROL/IPRATROPIUM (NEB) 3 ML AMP HHN SCH ×5 (02:48→20:09)
[2018-05-01 03:02] VITALS: BP 132/66; PULSE 74; RESP 18
[2018-05-01] MEDS: D5W-0.45 NACL + KCL 20 MEQ 1,000 ML IV SCH ×5 (05:30→23:27)
[2018-05-01] MEDS: GABAPENTIN 100 MG CAP PO SCH ×2 (05:55→11:30)
[2018-05-01] MEDS: LEVOTHYROXINE 88 MCG TAB PO SCH (05:56)
[2018-05-01] MEDS: PANTOPRAZOLE (EC) 40 MG TAB PO SCH (05:56)
[2018-05-01] MEDS: ONDANSETRON 4 MG INJ IV PRN ×2 (08:12→13:25)
[2018-05-01] MEDS: CHOLECALCIFEROL 1,000 UNIT TAB PO SCH ×2 (08:16→23:20)
[2018-05-01] MEDS: CEFTRIAXONE 2 GM/NS 50 ML IVPB SCH (08:16)
[2018-05-01] MEDS: ASPIRIN (EC) 81 MG TAB PO SCH (08:17)
[2018-05-01] MEDS: FOLIC ACID 1 MG TAB PO SCH (08:17)
[2018-05-01] MEDS: METOPROLOL 25 MG TAB PO SCH (08:17)
[2018-05-01 08:18] VITALS: BP 153/73; PULSE 80; RESP 16
[2018-05-01] MEDS: ENOXAPARIN 30 MG/0.3 ML SYG SC SCH (08:18)
[2018-05-01] MEDS: OXYCODONE/ACETAMINOPHEN (10/325) TAB PO PRN (08:34)
[2018-05-01] MEDS: METOCLOPRAMIDE 10 MG INJ IV PRN ×2 (09:56→22:00)
[2018-05-01 15:01] VITALS: BP 145/71; PULSE 71; RESP 16
--- NOTE | 2018-05-01 18:05 | PN ---
Date/Time of Note Date/Time of Note DATE: 05/01/18 TIME: 18:00 Assessment/Plan VTE Prophylaxis Risk score (from Ns)>0 risk: 3 SCD applied (from Ns): Yes Pharmacological prophylaxis: LMWH Lines/Catheters IV Catheter Type (from Nrsg): Mid Line Assessment/Plan Problems: (1) Acute UTI Status: Acute Comment: Cont. ceftriaxone. Cultures were indeterminate. (2) Vomiting Status: Acute Comment: Not as severe as on admit but pt. still unable to tolerate d/c home. Likely due to chronic constipation and chronic narcotic usage. Not responding to zofran/reglan. Will add megestrol 400 mg bid and start methylnaltrexone 12 mcg q48. Reeval tomorrow Qualifiers: Vomiting type: unspecified Vomiting Intractability: intractable Nausea presence: with nausea Qualified Codes: R11.2 - Nausea with vomiting, uns pecified (3) Rheumatoid arthritis Status: Chronic Comment: Cont. methotrexate (4) Asthma-COPD overlap syndrome Status: Chronic Comment: Duoneb prn and montelukast daily (5) Persistent disorder of initiating or maintaining sleep Status: Chronic Comment: zolpidem prn (6) Essential hypertension Status: Chronic Comment: Cont. metoprolol (7) Hyperlipidemia Status: Chronic Comment: Cont. statin (8) Acquired hypothyroidism Status: Chronic Comment: Cont. LT4 daily (9) Chronic pain syndrome Status: Chronic Comment: Cont. percocet Result Diagram: 04/29/1852104/29/18521 Subjective 24 Hr Interval Summary Constitutional: poor po; No improved Respiratory: no complaints Cardiovascular: no complaints Gastrointestinal: decreased appetite, nausea, vomiting Genitourinary: no complaints Musculoskeletal: back pain, bone/joint pain (R shoulder) Neurologic: no complaints Exam/Review of Systems Exam Vitals VS - Last 72 Hours, by Label Date Temp Pulse Resp B/P (MAP) Pulse Ox O2 O2 Flow FiO2 Time Delivery Rate 05/01/18 76 22 97 Nasal 2.0 16:55 Cannula 05/01/18 98.0 71 16 145/71 99 15:01 (95) 05/01/18 78 20 98 Nasal 2.0 13:12 Cannula 05/01/18 97 2.0 08:42 05/01/18 77 20 99 Nasal 2.0 08:41 Cannula 05/01/18 97.7 80 16 153/73 98 08:18 (99) 05/01/18 Nasal 2.0 07:51 Cannula 05/01/18 98.1 74 18 132/66 99 03:02 (88) 05/01/18 75 18 98 Nasal 2.0 02:48 Cannula 05/01/18 2.0 02:48 04/30/18 71 18 99 Nasal 2.0 22:26 Cannula 04/30/18 99 2.0 20:24 04/30/18 98.4 74 18 140/66 99 20:00 (90) 04/30/18 Nasal 2.0 20:00 Cannula 04/30/18 78 18 97 Aerosol 2.0 18:39 Mask Nasal Cannula 04/30/18 97 2.0 18:36 04/30/18 98.3 74 16 132/67 99 14:11 (88) 04/30/18 96 21 13:16 04/30/18 77 15 96 21 13:15 04/30/18 98.0 72 16 122/61 99 07:41 (81) 04/30/18 77 16 99 Nasal 2.5 07:27 Cannula 04/30/18 99 2.5 07:26 04/30/18 2.0 04:49 04/30/18 98.1 75 18 115/58 99 01:57 (77) 04/30/18 76 22 97 Nasal 2.0 01:19 Cannula 04/29/18 Nasal 2.0 21:07 Cannula 04/29/18 98.6 75 18 129/65 100 19:56 (86) 04/29/18 2.0 19:36 04/29/18 74 18 100 Nasal 2.0 19:36 Cannula 04/29/18 2.0 28 18:09 04/29/18 98.2 72 16 117/57 98 14:31 (77) 04/29/18 100 2.0 28 13:47 04/29/18 72 18 100 Nasal 2.0 28 13:47 Cannula 04/29/18 98 2.0 28 07:59 04/29/18 73 20 98 Nasal 2.0 28 07:59 Cannula 04/29/18 98.0 76 16 127/77 100 07:36 (94) 04/29/18 97.9 76 16 113/56 98 01:14 (75) 04/29/18 2.0 00:24 04/29/18 2.0 00:24 04/29/18 89 18 99 Nasal 2.0 00:24 Cannula 04/28/18 2.0 20:20 04/28/18 98.2 73 16 108/56 95 19:50 (73) 04/28/18 Nasal 2.0 19:35 Cannula Vital Signs Date Temp Pulse Resp B/P (MAP) Pulse Ox O2 O2 Flow FiO2 Time Delivery Rate 05/01/18 76 22 97 Nasal 2.0 16:55 Cannula 05/01/18 98.0 145/71 15:01 (95) 04/30/18 21 13:16 Intake and Output 04/30/18 04/30/18 05/01/18 1414:59 22:59 06:59 IntakeIntake Total 2610 ml 1707 ml 1240 ml BalanceBalance 2610 ml 1707 ml 1240 ml Constitutional: alert, oriented, frail Respiratory: clear to auscultation, normal air movement Cardiovascular: regular rate and rhythm, nl pulses; No edema, No murmurs/extra sounds, No rub Gastrointestinal: soft, nl liver, spleen, non-tender, bowel sounds; No mass, No rebound or guarding Musculoskeletal: nl extremities to inspection Extremities: normal pulses; No cyanosis, No clubbing, No edema Neurological: HOSPITAL DIRECTOR II-XII intact, nl mental status, nl speech, nl strength Medications Medication Current Medications Aspirin (Halfprin) 81 mg DAILY PO Last administered on 05/01/18 08:17; Admin Dose 81 MG; Start 04/28/18 at 09:00 Cholecalciferol (Vitamin D) 1,000 unit BID PO Last administered on 05/01/18 08:16; Admin Dose 1,000 UNIT; Start 04/27/18 at 21:00 Folic Acid (Folic Acid) 1 mg DAILY PO Last administered on 05/01/18 08:17; Admin Dose 1 MG; Start 04/28/18 at 09:00 Levothyroxine Sodium (Synthroid) 88 mcg BEFORE BREAKFAST PO Last administered on 05/01/18 05:56; Admin Dose 88 MCG; Start 04/28/18 at 07:00 Lorazepam (Ativan) 0.5 mg Q6 PRN PO ANXIETY Last administered on 04/30/18 04:21; Admin Dose 0.5 MG; Start 04/27/18 at 19:30 Metoprolol Tartrate (Lopressor) 25 mg DAILY PO Last administered on 05/01/18 08:17; Admin Dose 25 MG; Start 04/28/18 at 09:00 Montelukast Sodium (Singulair) 10 mg QHS PO Last administered on 04/30/18 21:24; Admin Dose 10 MG; Start 04/27/18 at 21:00 Oxycodone/ Acetaminophen (Endocet (10/ 325)) 1 tab Q6 PRN PO SEVERE PAIN LEVEL 7-10 Last administered on 05/01/18 08:34; Admin Dose 1 TAB; Start 04/27/18 at 19:30 Pantoprazole (Protonix Tab) 40 mg DAILY@0600 PO Last administered on 05/01/18 05:56; Admin Dose 40 MG; Start 04/28/18 at 06:00 Atorvastatin Calcium (Lipitor) 40 mg QPM PO Last administered on 04/30/18 21:25; Admin Dose 40 MG; Start 04/27/18 at 21:00 Gabapentin (Neurontin) 600 mg QHS PO ; Start 04/27/18 at 21:00 Gabapentin (Neurontin) 100 mg AC BREAKFAST LUNCH PO Last administered on 04/29/18 05:21; Admin Dose 100 MG; Start 04/28/18 at 07:00 Potassium Chloride/Dextrose/ Sod Cl 1,000 ml @ 125 mls/hr Q8H IV Last administered on 05/01/18 15:16; Admin Dose 125 MLS/HR; Start 04/27/18 at 21:30 IV Flush (NS 3 ml) 3 ml PER PROTOCOL IV ; Start 04/27/18 at 19:30 Ondansetron HCl (Zofran Inj) 4 mg Q6H PRN IV NAUSEA/VOMITING Last administered on 05/01/18 13:25; Admin Dose 4 MG; Start 04/27/18 at 19:30 Metoclopramide HCl (Reglan) 10 mg Q6H PRN IV NAUSEA/VOMITING Last administered on 05/01/18 09:56; Admin Dose 10 MG; Start 04/27/18 at 19:30 Acetaminophen (Tylenol Tab) 650 mg Q6H PRN PO .PAIN 1-3 OR TEMP; Start 04/27/18 at 19:30 Docusate Sodium (Colace) 100 mg Q12H PRN PO .CONSTIPATION Last administered on 04/30/18 06:05; Admin Dose 100 MG; Start 04/27/18 at 19:30 Bisacodyl (Dulcolax) 5 mg DAILY PRN PO .CONSTIPATION; Start 04/27/18 at 19:30 Sodium Biphosphate/ Sodium Phosphate (Fleet Enema) 133 ml DAILY PRN [place] .CONSTIPATION; Start 04/27/18 at 19:30 Zolpidem Tartrate (Ambien) 5 mg QHS PRN PO .INSOMNIA Last administered on 04/30/18 22:06; Admin Dose 5 MG; Start 04/27/18 at 19:30 Enoxaparin Sodium (Lovenox) 30 mg DAILY SC ; Start 04/28/18 at 09:00 Hydromorphone HCl (Dilaudid) 1 mg Q4H PRN IV SEVERE PAIN LEVEL 7-10 Last administered on 05/01/18 14:16; Admin Dose 1 MG; Start 04/27/18 at 21:30 Ceftriaxone Sodium 50 ml @ 100 mls/hr Q24H IVPB Last administered on 05/01/18 08:16; Admin Dose 100 MLS/HR; Start 04/28/18 at 09:00 Methotrexate (Methotrexate) 20 mg Th@0900 PO Last administered on 04/27/18 23:52; Admin Dose 20 MG; Start 04/27/18 at 23:00 Albuterol/ Ipratropium (Duoneb) 3 ml Q4H WHILE AWAKE HHN Last administered on 05/01/18 16:53; Admin Dose 3 ML; Start 04/30/18 at 17:00 JAMIE PATTON MD May 01, 2018 18:05
[2018-05-01] MEDS ORDERED: METHYLNALTREXONE 12 MG/0.6 ML VIAL SC SCH (18:30)
[2018-05-01 19:54] VITALS: BP 146/68; PULSE 79; RESP 18
[2018-05-01] MEDS: GABAPENTIN 300 MG CAP PO SCH (21:00)
[2018-05-01] MEDS: MEGESTROL (40 MG/ML) 10ML CUP PO SCH (21:00)
[2018-05-01] MEDS: ATORVASTATIN 40 MG TAB PO SCH (23:18)
[2018-05-01] MEDS: MONTELUKAST 10 MG TAB PO SCH (23:18)
[2018-05-01] MEDS: ZOLPIDEM 5 MG TAB PO PRN (23:24)
[2018-05-02] MEDS: LORAZEPAM 0.5 MG TAB PO PRN ×2 (00:47→23:01)
[2018-05-02] MEDS: ALBUTEROL/IPRATROPIUM (NEB) 3 ML AMP HHN SCH ×5 (00:53→20:12)
[2018-05-02 01:46] VITALS: BP 151/70; PULSE 94; RESP 18
[2018-05-02] MEDS: D5W-0.45 NACL + KCL 20 MEQ 1,000 ML IV SCH ×3 (05:30→17:02)
[2018-05-02] MEDS: PANTOPRAZOLE (EC) 40 MG TAB PO SCH ×2 (06:00→06:13)
[2018-05-02] MEDS: GABAPENTIN 100 MG CAP PO SCH ×2 (06:13→11:30)
[2018-05-02] MEDS: LEVOTHYROXINE 88 MCG TAB PO SCH ×2 (06:13→09:05)
[2018-05-02 07:39] VITALS: BP 135/71; PULSE 83; RESP 16
[2018-05-02] MEDS: METOCLOPRAMIDE 10 MG INJ IV PRN ×4 (07:48→20:21)
[2018-05-02] MEDS: HYDROmorphONE 1 MG/ML SYG IV PRN ×4 (07:48→20:22)
[2018-05-02] MEDS: ENOXAPARIN 30 MG/0.3 ML SYG SC SCH (09:00)
[2018-05-02] MEDS: MEGESTROL (40 MG/ML) 10ML CUP PO SCH ×3 (09:00→20:21)
[2018-05-02] MEDS: FOLIC ACID 1 MG TAB PO SCH (09:05)
[2018-05-02] MEDS: METOPROLOL 25 MG TAB PO SCH (09:05)
[2018-05-02] MEDS: CEFTRIAXONE 2 GM/NS 50 ML IVPB SCH (09:05)
[2018-05-02] MEDS: ASPIRIN (EC) 81 MG TAB PO SCH (09:05)
[2018-05-02] MEDS: CHOLECALCIFEROL 1,000 UNIT TAB PO SCH ×2 (09:05→20:19)
[2018-05-02] MEDS: BISACODYL (EC) 5 MG TAB PO PRN (09:18)
[2018-05-02] MEDS: ONDANSETRON 4 MG INJ IV PRN (09:49)
--- NOTE | 2018-05-02 13:25 | PN ---
Date/Time of Note Date/Time of Note DATE: 05/02/18 TIME: 13:20 Assessment/Plan VTE Prophylaxis Risk score (from Nsg)>0 risk: 4 SCD applied (from Ns): No (pt. refusing) SCD contraindicated: other (pt. refusing) Pharmacological prophylaxis: NA/contraindicated Pharm contraindication: patient refusal Lines/Catheters IV Catheter Type (from Nrsg): Mid Line Assessment/Plan Problems: (1) Vomiting Status: Acute Comment: Dry heaving continues and nausea does not improve. Pt. only just started megestrol this am. However, no BM after methylnaltrexone last night and symptoms not improving. Will call GI consult to further eval this. Qualifiers: Vomiting type: unspecified Vomiting Intractability: intractable Nausea presence: with nausea Qualified Codes: R11.2 - Nausea with vomiting, unspecified (2) Acute UTI Status: Acute Comment: culture was non-conclusive. Will complete 7 days ceftriaxone (3) Rheumatoid arthritis Status: Chronic Comment: Cont. methotrexate (4) Asthma-COPD overlap syndrome Status: Chronic Comment: cont. montelukast, duoneb (5) Persistent disorder of initiating or maintaining sleep Status: Chronic Comment: zolpidem prn (6) Essential hypertension Status: Chronic Comment: cont. metoprolol (7) Hyperlipidemia Status: Chronic Comment: cont. statin (8) Acquired hypothyroidism Status: Chronic Comment: cont. LT4 (9) Chronic pain syndrome Status: Chronic Comment: cont. percocet but consider that this may also be the source of pt.'s current N/V problem. Will defer to GI. Result Diagram: 04/29/1852104/29/18 05 Subjective 24 Hr Interval Summary Constitutional: poor po; No improved Respiratory: no complaints Cardiovascular: no complaints Gastrointestinal: pain, constipation (did not have BM after methylnaltrexone), nausea, vomiting Genitourinary: no complaints Musculoskeletal: no complaints Neurologic: no complaints Exam/Review of Systems Exam Vitals VS - Last 72 Hours, by Label Date Temp Pulse Resp B/P (MAP) Pulse Ox O2 O2 Flow FiO2 Time Delivery Rate 05/02/18 83 19 99 Nasal 2.0 08:53 Cannula 05/02/18 Nasal 2.0 08:10 Cannula 05/02/18 98.5 83 16 135/71 98 07:39 (92) 05/02/18 98.4 94 18 151/70 100 01:46 (97) 05/02/18 2.0 00:55 05/02/18 78 20 97 Nasal 2.0 00:54 Cannula 05/01/18 98 2.0 20:11 05/01/18 80 20 98 Nasal 2.0 20:10 Cannula 05/01/18 Nasal 2.0 20:00 Cannula 05/01/18 98.5 79 18 146/68 99 19:54 (94) 05/01/18 76 22 97 Nasal 2.0 16:55 Cannula 05/01/18 98.0 71 16 145/71 99 15:01 (95) 05/01/18 78 20 98 Nasal 2.0 13:12 Cannula 05/01/18 97 2.0 08:42 05/01/18 77 20 99 Nasal 2.0 08:41 Cannula 05/01/18 97.7 80 16 153/73 98 08:18 (99) 05/01/18 Nasal 2.0 07:51 Cannula 05/01/18 98.1 74 18 132/66 99 03:02 (88) 05/01/18 75 18 98 Nasal 2.0 02:48 Cannula 05/01/18 2.0 02:48 04/30/18 71 18 99 Nasal 2.0 22:26 Cannula 04/30/18 99 2.0 20:24 04/30/18 98.4 74 18 140/66 99 20:00 (90) 04/30/18 Nasal 2.0 20:00 Cannula 04/30/18 78 18 97 Aerosol 2.0 18:39 Mask Nasal Cannula 04/30/18 97 2.0 18:36 04/30/18 98.3 74 16 132/67 99 14:11 (88) 04/30/18 96 21 13:16 04/30/18 77 15 96 21 13:15 04/30/18 98.0 72 16 122/61 99 07:41 (81) 04/30/18 77 16 99 Nasal 2.5 07:27 Cannula 04/30/18 99 2.5 07:26 04/30/18 2.0 04:49 04/30/18 98.1 75 18 115/58 99 01:57 (77) 04/30/18 76 22 97 Nasal 2.0 01:19 Cannula 04/29/18 Nasal 2.0 21:07 Cannula 04/29/18 98.6 75 18 129/65 100 19:56 (86) 04/29/18 2.0 19:36 04/29/18 74 18 100 Nasal 2.0 19:36 Cannula 04/29/18 2.0 28 18:09 04/29/18 98.2 72 16 117/57 98 14:31 (77) 04/29/18 100 2.0 28 13:47 04/29/18 72 18 100 Nasal 2.0 28 13:47 Cannula Vital Signs Date Temp Pulse Resp B/P (MAP) Pulse Ox O2 O2 Flow FiO2 Time Delivery Rate 05/02/18 83 19 99 Nasal 2.0 08:53 Cannula 05/02/18 98.5 135/71 07:39 (92) 04/30/18 21 13:16 Intake and Output 05/01/18 05/01/18 05/02/18 1515:00 23:00 07:00 IntakeIntake Total 1680 ml 910 ml 2150 ml BalanceBalance 1680 ml 910 ml 2150 ml Constitutional: alert, oriented, distress (appears weak and uncomfortable), frail Psych: depression Respiratory: clear to auscultation, normal air movement Cardiovascular: regular rate and rhythm, nl pulses; No edema, No murmurs/extra sounds, No rub Gastrointestinal: soft, nl liver, spleen, bowel sounds, tender (epigastrium); No non-tender, No mass, No rebound or guarding Musculoskeletal: nl extremities to inspection Extremities: normal pulses; No cyanosis, No clubbing, No edema Neurological: LOCOMOTIVE FIRER II-XII intact, nl mental status, nl speech, nl strength Medications Medication Current Medications Aspirin (Halfprin) 81 mg DAILY PO Last administered on 05/02/18at 09:05; Admin Dose 81 MG; Start 04/28/18 at 09:00 Cholecalciferol (Vitamin D) 1,000 unit BID PO Last administered on 05/02/18at 09:05; Admin Dose 1,000 UNIT; Start 04/27/18 at 21:00 Folic Acid (Folic Acid) 1 mg DAILY PO Last administered on 05/02/18at 09:05; Admin Dose 1 MG; Start 04/28/18 at 09:00 Levothyroxine Sodium (Synthroid) 88 mcg BEFORE BREAKFAST PO Last administered on 05/02/18 09:05; Admin Dose 88 MCG; Start 04/28/18 at 07:00 Lorazepam (Ativan) 0.5 mg Q6 PRN PO ANXIETY Last administered on 05/02/18 00:47; Admin Dose 0.5 MG; Start 04/27/18 at 19:30 Metoprolol Tartrate (Lopressor) 25 mg DAILY PO Last administered on 05/02/18 09:05; Admin Dose 25 MG; Start 04/28/18 at 09:00 Montelukast Sodium (Singulair) 10 mg QHS PO Last administered on 05/01/18 23:18; Admin Dose 10 MG; Start 04/27/18 at 21:00 Oxycodone/ Acetaminophen (Endocet (10/ 325)) 1 tab Q6 PRN PO SEVERE PAIN LEVEL 7-10 Last administered on 05/01/18 08:34; Admin Dose 1 TAB; Start 04/27/18 at 19:30 Pantoprazole (Protonix Tab) 40 mg DAILY@0600 PO Last administered on 05/01/18 05:56; Admin Dose 40 MG; Start 04/28/18 at 06:00 Atorvastatin Calcium (Lipitor) 40 mg QPM PO Last administered on 05/01/18 23:18; Admin Dose 40 MG; Start 04/27/18 at 21:00 Gabapentin (Neurontin) 600 mg QHS PO ; Start 04/27/18 at 21:00 Gabapentin (Neurontin) 100 mg AC BREAKFAST LUNCH PO Last administered on 04/29/18 05:21; Admin Dose 100 MG; Start 04/28/18 at 07:00 Potassium Chloride/Dextrose/ Sod Cl 1,000 ml @ 125 mls/hr Q8H IV Last administered on 05/02/18 07:55; Admin Dose 125 MLS/HR; Start 04/27/18 at 21:30 IV Flush (NS 3 ml) 3 ml PER PROTOCOL IV ; Start 04/27/18 at 19:30 Ondansetron HCl (Zofran Inj) 4 mg Q6H PRN IV NAUSEA/VOMITING Last administered on 05/02/18 09:49; Admin Dose 4 MG; Start 04/27/18 at 19:30 Acetaminophen (Tylenol Tab) 650 mg Q6H PRN PO .PAIN 1-3 OR TEMP; Start 04/27/18 at 19:30 Docusate Sodium (Colace) 100 mg Q12H PRN PO .CONSTIPATION Last administered on 04/30/18 06:05; Admin Dose 100 MG; Start 04/27/18 at 19:30 Bisacodyl (Dulcolax) 5 mg DAILY PRN PO .CONSTIPATION Last administered on 05/02/18 09:18; Admin Dose 5 MG; Start 04/27/18 at 19:30 Sodium Biphosphate/ Sodium Phosphate (Fleet Enema) 133 ml DAILY PRN [place] .CONSTIPATION; Start 04/27/18 at 19:30 Zolpidem Tartrate (Ambien) 5 mg QHS PRN PO .INSOMNIA Last administered on 05/01/18 23:24; Admin Dose 5 MG; Start 04/27/18 at 19:30 Enoxaparin Sodium (Lovenox) 30 mg DAILY SC ; Start 04/28/18 at 09:00 Hydromorphone HCl (Dilaudid) 1 mg Q4H PRN IV SEVERE PAIN LEVEL 7-10 Last administered on 05/02/18 12:04; Admin Dose 1 MG; Start 04/27/18 at 21:30 Ceftriaxone Sodium 50 ml @ 100 mls/hr Q24H IVPB Last administered on 05/02/18 09:05; Admin Dose 100 MLS/HR; Start 04/28/18 at 09:00 Methotrexate (Methotrexate) 20 mg Th@0900 PO Last administered on 04/27/18 23:52; Admin Dose 20 MG; Start 04/27/18 at 23:00 Albuterol/ Ipratropium (Duoneb) 3 ml Q4H WHILE AWAKE HHN Last administered on 05/02/18 00:53; Admin Dose 3 ML; Start 04/30/18 at 17:00 Methylnaltrexone [place] (Relistor) 12 mg Q48H SC Last administered on 05/01/18 19:00; Admin Dose 12 MG; Start 05/01/18 at 18:30 Megestrol Acetate (Megace Susp) 400 mg BID PO Last administered on 05/02/18 10:04; Admin Dose 400 MG; Start 05/01/18 at 21:00 Metoclopramide HCl (Reglan) 10 mg Q4H PRN IV NAUSEA AND/OR VOMITING Last administered on 05/02/18at 12:04; Admin Dose 10 MG; Start 05/02/18 at 10:30 JAMIE PATTON MD May 02, 2018 13:25
[2018-05-02 14:58] VITALS: BP 130/68; PULSE 78; RESP 16
--- NOTE | 2018-05-02 17:17 | CONS ---
DATE OF ADMISSION: 04/29/2018 DATE OF CONSULTATION: TYPE OF CONSULTATION: Gastroenterology. Dear Dr. Gallagher: Thank you for asking me to see Mrs. Cabrera in GI consultation. HISTORY OF PRESENT ILLNESS: As you know, the patient is a 72-year-old female, is admitted t o the hospital because of persistent nausea, occasional vomiting in the beginning, but now vomiting h as subsided. The nausea persists as retching. She has no history of heartburn, no difficulty swallo wing, no abdominal pain, no GI bleeding, no diarrhea, no constipation, no weight loss. MEDICATIONS: She has been taking multiple medications at home prior to the admission which includes: 1. Methotrexate for rheumatoid arthritis. 2. Ipratropium. 3. Ferrous sulfate. 4. Metoprolol. 5. Crestor. 6. Aspirin. 7. Lorazepam. 8. Nortriptyline. 9. Oxycodone, which is [place]. 10. Montelukast. 11. Probiotic. 12. Ondansetron. 12. Pantoprazole. 13. Levothyroxine. 14. Zinc oxide. 15. Cholecalciferol. 16. Melatonin. PAST SURGICAL HISTORY: Includes total hip replacements bilaterally, right knee replacement and right shoulder surgery. PAST MEDICAL HISTORY: Positive for hypothyroidism. She has asthma, essential hypertension, dyslipid emia, acquired hypothyroidism, chronic pain syndrome, urosepsis. SOCIAL HISTORY: The patient does not smoke or drink. PHYSICAL EXAMINATION: GENERAL: The patient is a 72-year-old female who is alert. She is well built. VITAL SIGNS: She is afebrile. Temperature 98.3, pulse is 78, blood pressure is 130/68. CARDIOVASCULAR: Normal heart sounds. RESPIRATORY: Normal breath sounds. ABDOMEN: Showed a soft abdomen with no palpable masses, no tenderness, no distention. LABORATORY WORKUP: WBC count is 7500, hemoglobin 12.6. Potassium 4.0. Bilirubin 0.3, AST 29, ALT 1 0, alkaline phosphatase 95, albumin 3.7, lipase 53. DIAGNOSTIC DATA: The CAT scan of the abdomen shows no acute inflammatory process, status post cholec ystectomy, left renal calculus, atherosclerosis, degenerative changes of the spine, bilateral hip art hroplasties. CLINICAL IMPRESSION: The patient has persistent nausea and occasional vomiting. It is quite possibl e that we may be dealing with drug-induced symptomatology. Certainly, one should rule out the possib ility of chronic gastroesophageal reflux disease, rule out peptic ulcer disease, gastritis. Based on the fact she has a cholecystectomy, one should consider the possibility of choledocholithiasis; gunderson joseph, liver functions are normal. PLAN: At this time, we will recommend upper endoscopy initially and continue present management. If the upper endoscopy shows no significant findings, then we will do the MRCP. Once again, doctor, thank you for this consultation. Dictated By: MANDY ORNELAS MD NC/NTS Conf#: [id number] DID#: [id number] CC: JAMIE GALLAGHER MD;*EndCC*
[2018-05-02 19:15] VITALS: BP 118/59; PULSE 73; RESP 18
[2018-05-02] MEDS: ATORVASTATIN 40 MG TAB PO SCH (20:19)
[2018-05-02] MEDS: MONTELUKAST 10 MG TAB PO SCH (20:19)
[2018-05-02] MEDS: GABAPENTIN 300 MG CAP PO SCH (20:31)
[2018-05-02] MEDS: ZOLPIDEM 5 MG TAB PO PRN (22:33)
[2018-05-03] VITALS (13 sets, daily range): BP systolic 94–141; BP diastolic 47–67; PULSE 68–83; RESP 14–29
[2018-05-03] MEDS: HYDROmorphONE 1 MG/ML SYG IV PRN ×6 (00:24→23:11)
[2018-05-03] MEDS: METOCLOPRAMIDE 10 MG INJ IV PRN ×6 (00:41→23:11)
[2018-05-03] MEDS: D5W-0.45 NACL + KCL 20 MEQ 1,000 ML IV SCH ×2 (01:14→15:16)
[2018-05-03] MEDS: ALBUTEROL/IPRATROPIUM (NEB) 3 ML AMP HHN SCH ×6 (01:45→20:00)
[2018-05-03] MEDS: PANTOPRAZOLE (EC) 40 MG TAB PO SCH (06:00)
[2018-05-03] MEDS: LEVOTHYROXINE 88 MCG TAB PO SCH (06:14)
[2018-05-03] MEDS: GABAPENTIN 100 MG CAP PO SCH ×2 (06:14→11:17)
--- NOTE | 2018-05-03 07:43 | PREAC ---
Date/Time of Note Date/Time of Note DATE: 05/03/18 TIME: 07:41 Anesthesia Eval and Record Evaluation Time Pre-Procedure Interview DATE: 05/03/18 TIME: 07:41 Age 72 Sex female NPO: 8 hrs Preoperative diagnosis Nausea Planned procedure EGD Past Medical History Past Medical History: Includes Cardio: HTN, Dyslipidemia Endo: Hypothyroid, Other (Hx of breast CA) Pulm: Smoking Hx, COPD Surgery & Anesthesia Issues No known issue Meds Anticoagulation: No Beta Stephen within 24 hr: No Reason Beta Stephen not given: Pt. not on B-Stephen Reported Medications Zinc Oxide/[place] Starch ([place] BABY POWDER) 142 Gm Powder, 1 APPLIC TP DAILY 04/27/18 Lactobacillus Acidophilus (Probiotic) 1 Each Capsule, 1 CAP PO DAILY, CAP 04/27/18 Melatonin (Melatonin) 10 Mg Capsule, 20 MG PO HS, CAP 04/27/18 Methotrexate* (Methotrexate*) 2.5 Mg Tab, 20 MG PO WEEKLY, TAB 04/27/18 Cranberry (Cranberry) 400 Mg Capsule, 400 MG PO DAILY, CAP 04/27/18 Aspirin* (Aspirin* EC) 81 Mg Tablet.dr, 81 MG PO DAILY, TAB 04/27/18 Lorazepam* (Lorazepam*) 0.5 Mg Tablet, 0.5 MG PO Q6 PRN for ANXIETY, TAB 04/27/18 Oxycodone HCl/Acetaminophen (Oxycodone-Acetaminophen 10-325) 1 Each Tablet, 1 TAB PO Q6 PRN for SEVERE PAIN LEVEL 7-10 04/27/18 Nortriptyline Hcl* (Nortriptyline Hcl*) 10 Mg Capsule, 10 MG PO BID 04/27/18 Ipratropium-Albuterol (Ipratropium-Albuterol) 0.5-3 Mg/3 Ml Ampul.neb, 3 ML INHALATION Q6 PRN for WHEEZING AND SOB, #30 VIAL 04/27/18 Metoprolol Tartrate* (Lopressor*) 25 Mg Tablet, 25 MG PO DAILY, #60 TAB 03/21/18 Folic Acid* (Folic Acid*) 1 Mg Tablet, 1 MG PO DAILY, TAB 03/21/18 Ferrous Sulfate* (Ferrous Sulfate*) 325 Mg Tabec, 325 MG PO DAILY, TAB 03/21/18 Pantoprazole* (Pantoprazole*) 40 Mg Tablet.dr, 40 MG PO DAILY, TAB 1/15/19 Cholecalciferol* (Vitamin D3*) 1,000 Unit Tablet, 1000 UNIT PO BID, TAB 03/21/18 Montelukast Sodium* (Montelukast Sodium*) 10 Mg Tablet, 10 MG PO QHS, #30 TAB 03/21/18 Rosuvastatin Calcium* (Crestor*) 20 Mg Tablet, 20 MG PO QHS, #30 TAB 01/10/17 Ondansetron Hcl* (Ondansetron Hcl*) 4 Mg Tablet, 4 MG PO Q6H PRN for NAUSEA AND/OR VOMITING, TAB 07/20/16 Levothyroxine Sodium* (Levothyroxine Sodium*) 88 Mcg Tablet, 88 MCG PO BEFORE BREAKFAST, #30 TAB 07/20/16 Discontinued Reported Medications Diphenhydramine Hcl* (Unisom*) 50 Mg Capsule, 100 MG PO HS PRN for SLEEP, CAP 04/27/18 Oxycodone HCl/Acetaminophen (Oxycodone-Acetaminophen 5-325) 1 Each Tablet, 1 EACH PO DAILY, TAB 03/21/18 Melatonin-Pyridoxine Hcl (Melatonin) 5-10 Mg Tablet, 2 TAB PO HS, TAB 03/21/18 Gabapentin* (Gabapentin*) 100 Mg Capsule, 100 MG PO BID, #90 CAP 03/21/18 Tiotropium Br/Olodaterol HCl (Stiolto Respimat Inhal [place]) 4 Gm Mist.inhal, 2 PUFF INHALATION DAILY, #1 INHALER 01/10/17 Nystatin* (Nystatin* Oint) 15 Gm Oint, 1 APPLIC TOP BID, #1 TUB 01/10/17 Quetiapine Fumarate* (Seroquel*) 25 Mg Tablet, 25 MG PO HS, #30 TAB 01/10/17 Sertraline Hcl* (Zoloft*) 50 Mg Tablet, 50 MG PO DAILY, #30 TAB 01/10/17 Terbinafine* (Lamisil*) 250 Mg Tablet, 250 MG PO DAILY, TAB 01/10/17 Hydrocodone/Acetaminophen ([place] 10-325 Tablet) 1 Each Tablet, 1 EACH PO Q8, TAB 01/10/17 Suvorexant (Belsomra) 10 Mg Tablet, 10 MG PO QHS, TAB 01/10/17 Trazodone Hcl* (Trazodone Hcl*) 100 Mg Tablet, 100 MG PO QHS, #30 TAB 01/10/17 Discontinued Scripts Levofloxacin* (Levofloxacin*) 500 Mg Tablet, 500 MG PO DAILY for 3 Days, #3 TAB Prov:LUDY LEOS MD 03/22/18 Gabapentin* (Gabapentin*) 300 Mg Capsule, 600 MG PO QHS for 30 Days, #30 CAP Prov:LUDY LEOS MD 03/22/18 Aspirin (Aspirin) 81 Mg Chew, 81 MG PO DAILY for 30 Days, #30 TAB Prov:LUDY LEOS MD 03/22/18 Hydrocodone/Acetaminophen ([place] 5-325 Tablet) 1 Each Tablet, 1 EACH PO Q4 PRN for PAIN LEVEL 6-10, #20 TAB Prov:IKE SANDS MD 01/16/17 Current Medications Aspirin (Halfprin) 81 mg DAILY PO Last administered on 05/02/18 09:05; Admin Dose 81 MG; Start 04/28/18 at 09:00 Cholecalciferol (Vitamin D) 1,000 unit BID PO Last administered on 05/02/18 20:19; Admin Dose 1,000 UNIT; Start 04/27/18 at 21:00 Folic Acid (Folic Acid) 1 mg DAILY PO Last administered on 05/02/18 09:05; Admin Dose 1 MG; Start 04/28/18 at 09:00 Levothyroxine Sodium (Synthroid) 88 mcg BEFORE BREAKFAST PO Last administered on 05/02/18 09:05; Admin Dose 88 MCG; Start 04/28/18 at 07:00 Lorazepam (Ativan) 0.5 mg Q6 PRN PO ANXIETY Last administered on 05/02/18at 23:01; Admin Dose 0.5 MG; Start 04/27/18 at 19:30 Metoprolol Tartrate (Lopressor) 25 mg DAILY PO Last administered on 05/02/18 09:05; Admin Dose 25 MG; Start 04/28/18 at 09:00 Montelukast Sodium (Singulair) 10 mg QHS PO Last administered on 05/02/18 20:19; Admin Dose 10 MG; Start 04/27/18 at 21:00 Oxycodone/ Acetaminophen (Endocet (10/ 325)) 1 tab Q6 PRN PO SEVERE PAIN LEVEL 7-10 Last administered on 05/01/18 08:34; Admin Dose 1 TAB; Start 04/27/18 at 19:30 Pantoprazole (Protonix Tab) 40 mg DAILY@0600 PO Last administered on 05/01/18 05:56; Admin Dose 40 MG; Start 04/28/18 at 06:00 Atorvastatin Calcium (Lipitor) 40 mg QPM PO Last administered on 05/02/18 20:19; Admin Dose 40 MG; Start 04/27/18 at 21:00 Gabapentin (Neurontin) 600 mg QHS PO ; Start 04/27/18 at 21:00 Gabapentin (Neurontin) 100 mg AC BREAKFAST LUNCH PO Last administered on 04/29/18 05:21; Admin Dose 100 MG; Start 04/28/18 at 07:00 Potassium Chloride/Dextrose/ Sod Cl 1,000 ml @ 125 mls/hr Q8H IV Last administered on 05/03/18 01:14; Admin Dose 125 MLS/HR; Start 04/27/18 at 21:30 IV Flush (NS 3 ml) 3 ml PER PROTOCOL IV ; Start 04/27/18 at 19:30 Ondansetron HCl (Zofran Inj) 4 mg Q6H PRN IV NAUSEA/VOMITING Last administered on 05/02/18 09:49; Admin Dose 4 MG; Start 04/27/18 at 19:30 Acetaminophen (Tylenol Tab) 650 mg Q6H PRN PO .PAIN 1-3 OR TEMP; Start 04/27/18 at 19:30 Docusate Sodium (Colace) 100 mg Q12H PRN PO .CONSTIPATION Last administered on 04/30/18 06:05; Admin Dose 100 MG; Start 04/27/18 at 19:30 Bisacodyl (Dulcolax) 5 mg DAILY PRN PO .CONSTIPATION Last administered on 05/02/18 09:18; Admin Dose 5 MG; Start 04/27/18 at 19:30 Sodium Biphosphate/ Sodium Phosphate (Fleet Enema) 133 ml DAILY PRN [place] .CONSTIPATION; Start 04/27/18 at 19:30 Zolpidem Tartrate (Ambien) 5 mg QHS PRN PO .INSOMNIA Last administered on 05/02/18 22:33; Admin Dose 5 MG; Start 04/27/18 at 19:30 Enoxaparin Sodium (Lovenox) 30 mg DAILY SC ; Start 04/28/18 at 09:00 Hydromorphone HCl (Dilaudid) 1 mg Q4H PRN IV SEVERE PAIN LEVEL 7-10 Last administered on 05/03/18 06:55; Admin Dose 1 MG; Start 04/27/18 at 21:30 Ceftriaxone Sodium 50 ml @ 100 mls/hr Q24H IVPB Last administered on 05/02/18 09:05; Admin Dose 100 MLS/HR; Start 04/28/18 at 09:00 Methotrexate (Methotrexate) 20 mg Th@0900 PO Last administered on 04/27/18 23:52; Admin Dose 20 MG; Start 04/27/18 at 23:00 Albuterol/ Ipratropium (Duoneb) 3 ml Q4H WHILE AWAKE HHN Last administered on 05/03/18 01:45; Admin Dose 3 ML; Start 04/30/18 at 17:00 Methylnaltrexone [place] (Relistor) 12 mg Q48H SC Last administered on 05/01/18 19:00; Admin Dose 12 MG; Start 05/01/18 at 18:30 Metoclopramide HCl (Reglan) 10 mg Q4H PRN IV NAUSEA AND/OR VOMITING Last administered on 05/03/18 06:55; Admin Dose 10 MG; Start 05/02/18 at 10:30 Megestrol Acetate (Megace Susp) 400 mg BID PO Last administered on 05/02/18 20:21; Admin Dose 400 MG; Start 05/02/18 at 21:00 Meds reviewed: Yes Allergies Coded Allergies: No Known Drug Allergies (Verified Allergy, Unknown, 03/20/18) Allergies Reviewed: Yes Labs/Studies Labs Reviewed: Reviewed by anesthesiologist Result Diagram: 04/29/1852104/29/18521 test: N/A Studies: ECG (NSR), CXR (n/a) Pre-procedure Exam Last vitals Vital Signs Date Temp Pulse Resp B/P (MAP) Pulse Ox O2 O2 Flow FiO2 Time Delivery Rate 05/03/18 79 18 96 Nasal 3.0 01:45 Cannula 05/03/18 99.0 139/64 01:11 (89) 05/02/18 30 20:12 Airway: Adequate mouth opening, Adequate thyromental dist Mallampati: Mallampati II Teeth: Normal Lung: Normal Heart: Normal ASA Physical Status ASA physical status: 3 Emergency: None Planned Anesthetic General/MAC: MAC Planned Pain Management Parenteral pain med Pre-operative Attestations Prior to commencing anesthesia and surgery, the patient was re-evaluated, there was verification of: *The patient's identity *The results of appropriate recent lab work and preoperative vital signs *The above evaluation not changing prior to induction *Anesthetic plan, risk benefits, alternative and complications discussed with patient/family; questions answered; patient/family understands, accepts and wishes to proceed. CARL CORDOVA MD May 03, 2018 07:43
--- NOTE | 2018-05-03 08:17 | PAC ---
Date/Time of Note Date/Time of Note DATE: 05/03/18 TIME: 08:16 Post-Anesthesia Notes Post-Anesthesia Note Last documented vital signs Vital Signs Date Temp Pulse Resp B/P (MAP) Pulse Ox O2 O2 Flow FiO2 Time Delivery Rate 05/03/18 98.1 79 18 94/47 (69) 96 Nasal 3.0 08:15 Cannula 05/03/18 99.0 139/64 01:11 (89) 05/02/18 30 20:12 Activity: WNL Respiratory function: WNL Cardiovascular function: WNL Mental status: Baseline Pain reasonably controlled: Yes Hydration appropriate: Yes Nausea/Vomiting absent: Yes CARL CORDOVA MD May 03, 2018 08:17
[2018-05-03] MEDS ORDERED: PROPOFOL 20 ML ONE (08:59)
[2018-05-03] MEDS: ENOXAPARIN 30 MG/0.3 ML SYG SC SCH (09:00)
[2018-05-03] MEDS: CEFTRIAXONE 2 GM/NS 50 ML IVPB SCH (09:47)
[2018-05-03] MEDS: FOLIC ACID 1 MG TAB PO SCH (09:58)
[2018-05-03] MEDS: CHOLECALCIFEROL 1,000 UNIT TAB PO SCH ×2 (09:58→21:32)
[2018-05-03] MEDS: ASPIRIN (EC) 81 MG TAB PO SCH (09:58)
[2018-05-03] MEDS: ONDANSETRON 4 MG INJ IV PRN (09:58)
[2018-05-03] MEDS: MEGESTROL (40 MG/ML) 10ML CUP PO SCH ×2 (09:58→21:30)
[2018-05-03] MEDS: METOPROLOL 25 MG TAB PO SCH (09:59)
--- NOTE | 2018-05-03 17:46 | PN ---
Date/Time of Note Date/Time of Note DATE: 05/03/18 TIME: 17:42 Assessment/Plan VTE Prophylaxis Risk score (from Ns)>0 risk: 3 [place] [facility] [place] contraindicated: patient refusal Pharmacological prophylaxis: NA/contraindicated Pharm contraindication: patient refusal Lines/Catheters [facility] Mid [facility] Urinary Cath still in place: No Assessment/Plan Problems: (1) Allergic conjunctivitis Status: Acute Comment: patanol bid Qualifiers: Laterality: bilateral Qualified Codes: H10.13 - Acute atopic conjunctivitis, bilateral (2) Vomiting Status: Acute Comment: Appreciate GI consult. EGD w/ superficial gastritis. On PPI. Will continue. S/p MRCP. (+) CBD dilatation c/w sludge. Defer to GI eval. Cont. megace, reglan, zofran. Cont. to attempt to treat constipation. Increase methylnaltrexone to daily and add dulcolax suppository x 1 Qualifiers: Vomiting type: unspecified Vomiting Intractability: intractable Nausea presence: with nausea Qualified Codes: R11.2 - Nausea with vomiting, unspecified (3) Acute UTI Status: Acute Comment: Finishing course of ceftriaxone. Will recheck urine (4) Rheumatoid arthritis Status: Chronic Comment: Cont. methotrexate (5) Asthma-COPD overlap syndrome Status: Chronic Comment: Cont. montelukast and duoneb prn (6) Persistent disorder of initiating or maintaining sleep Status: Chronic Comment: Cont. zolpidem (7) Essential hypertension Status: Chronic Comment: Cont. metoprolol (8) Hyperlipidemia Status: Chronic Comment: Cont. statin (9) Acquired hypothyroidism Status: Chronic Comment: Cont. LT4. (10) Chronic pain syndrome Status: Chronic Comment: Cont. dilaudid and percocet although may be partially responsible for nausea. Result Diagram: 04/29/1852104/29/18521 Subjective 24 Hr Interval Summary Constitutional: no complaints Eyes: discharge, other (burning) Respiratory: no complaints Cardiovascular: no complaints Gastrointestinal: constipation, nausea, vomiting; No passing stool Genitourinary: no complaints Musculoskeletal: back pain, bone/joint pain (shoulder) Neurologic: no complaints Exam/Review of Systems Exam Vitals VS - Last 72 Hours, by Label Date Temp Pulse Resp B/P (MAP) Pulse Ox O2 O2 Flow FiO2 Time Delivery Rate 2/27/19 2.0 16:55 05/03/18 77 17 95 Nasal 2.0 16:54 Cannula 05/03/18 98.3 82 18 134/62 96 13:27 (86) 05/03/18 82 18 96 Nasal 3.0 12:18 Cannula 05/03/18 98.0 79 18 141/64 98 Nasal 2.0 09:50 (89) Cannula 05/03/18 98.0 68 20 116/55 99 Nasal 2.0 09:35 (75) Cannula 05/03/18 98.4 83 18 128/61 96 09:21 (83) 05/03/18 98.1 82 16 128/61 99 Nasal 2.0 09:20 (83) Cannula 05/03/18 Nasal 3.0 08:42 Cannula 05/03/18 70 14 125/57 100 Nasal 3.0 08:34 (79) Cannula 05/03/18 70 17 119/51 100 Nasal 3.0 08:29 (73) Cannula 05/03/18 76 29 116/55 100 Nasal 3.0 08:24 (75) Cannula 05/03/18 76 19 106/53 100 Nasal 3.0 08:19 (70) Cannula 05/03/18 98.0 76 94/47 (63) 100 Nasal 3.0 08:14 Cannula 05/03/18 Nasal 2.0 08:00 Cannula 05/03/18 98.0 76 19 141/66 99 Nasal 2.0 07:42 (91) Cannula 05/03/18 79 18 96 Nasal 3.0 01:45 Cannula 05/03/18 3.0 01:45 05/03/18 99.0 77 18 139/64 98 01:11 (89) 05/02/18 Nasal 2.0 20:25 Cannula 05/02/18 77 18 99 Nasal 3.0 30 20:12 Cannula 05/02/18 3.0 20:12 05/02/18 98.2 73 18 118/59 100 19:15 (78) 05/02/18 72 18 100 Nasal 3.0 17:35 Cannula 05/02/18 3.0 17:35 05/02/18 98.3 78 16 130/68 99 14:58 (88) 05/02/18 80 18 Nasal 2.0 13:56 Cannula 05/02/18 83 19 99 Nasal 2.0 08:53 Cannula 05/02/18 Nasal 2.0 08:10 Cannula 05/02/18 98.5 83 16 135/71 98 07:39 (92) 05/02/18 98.4 94 18 151/70 100 01:46 (97) 05/02/18 2.0 00:55 05/02/18 78 20 97 Nasal 2.0 00:54 Cannula 05/01/18 98 2.0 20:11 05/01/18 80 20 98 Nasal 2.0 20:10 Cannula 05/01/18 Nasal 2.0 20:00 Cannula 05/01/18 98.5 79 18 146/68 99 19:54 (94) 05/01/18 76 22 97 Nasal 2.0 16:55 Cannula 05/01/18 98.0 71 16 145/71 99 15:01 (95) 05/01/18 78 20 98 Nasal 2.0 13:12 Cannula 05/01/18 97 2.0 08:42 05/01/18 77 20 99 Nasal 2.0 08:41 Cannula 05/01/18 97.7 80 16 153/73 98 08:18 (99) 05/01/18 Nasal 2.0 07:51 Cannula 05/01/18 98.1 74 18 132/66 99 03:02 (88) 05/01/18 75 18 98 Nasal 2.0 02:48 Cannula 05/01/18 2.0 02:48 04/30/18 71 18 99 Nasal 2.0 22:26 Cannula 04/30/18 99 2.0 20:24 04/30/18 98.4 74 18 140/66 99 20:00 (90) 04/30/18 Nasal 2.0 20:00 Cannula 04/30/18 78 18 97 Aerosol 2.0 18:39 Mask Nasal Cannula 04/30/18 97 2.0 18:36 Vital Signs Date Temp Pulse Resp B/P (MAP) Pulse Ox O2 O2 Flow FiO2 Time Delivery Rate 05/03/18 2.0 16:55 05/03/18 77 17 95 Nasal 16:54 Cannula 05/03/18 98.3 134/62 13:27 (86) 05/02/18 30 20:12 Intake and Output 05/02/18 05/02/18 05/03/18 1515:00 23:00 07:00 IntakeIntake Total 552 ml 1480 ml 1620 ml BalanceBalance 552 ml 1480 ml 1620 ml Eyes: nl conjunctiva, nl sclera Respiratory: clear to auscultation, normal air movement Cardiovascular: regular rate and rhythm, nl pulses; No edema, No murmurs/extra sounds, No rub Gastrointestinal: soft, nl liver, spleen, non-tender, bowel sounds; No mass, No rebound or guarding Musculoskeletal: nl extremities to inspection Extremities: normal pulses; No cyanosis, No clubbing, No edema Neurological: [employer] II-XII intact, nl mental status, nl speech, nl strength Medications Medication Current Medications Aspirin (Halfprin) 81 mg DAILY PO Last administered on 05/03/18 09:58; Admin Dose 81 MG; Start 04/28/18 at 09:00 Cholecalciferol (Vitamin D) 1,000 unit BID PO Last administered on 05/03/18 09:58; Admin Dose 1,000 UNIT; Start 04/27/18 at 21:00 Folic Acid (Folic Acid) 1 mg DAILY PO Last administered on 05/03/18 09:58; Admin Dose 1 MG; Start 04/28/18 at 09:00 Levothyroxine Sodium (Synthroid) 88 mcg BEFORE BREAKFAST PO Last administered on 05/02/18 09:05; Admin Dose 88 MCG; Start 04/28/18 at 07:00 Lorazepam (Ativan) 0.5 mg Q6 PRN PO ANXIETY Last administered on 05/02/18 23:01; Admin Dose 0.5 MG; Start 04/27/18 at 19:30 Metoprolol Tartrate (Lopressor) 25 mg DAILY PO Last administered on 05/03/18 09:59; Admin Dose 25 MG; Start 04/28/18 at 09:00 Montelukast Sodium (Singulair) 10 mg QHS PO Last administered on 05/02/18 20:19; Admin Dose 10 MG; Start 04/27/18 at 21:00 Oxycodone/ Acetaminophen (Endocet (10/ 325)) 1 tab Q6 PRN PO SEVERE PAIN LEVEL 7-10 Last administered on 05/01/18 08:34; Admin Dose 1 TAB; Start 04/27/18 at 19:30 Pantoprazole (Protonix Tab) 40 mg DAILY@0600 PO Last administered on 05/01/18 05:56; Admin Dose 40 MG; Start 04/28/18 at 06:00 Atorvastatin Calcium (Lipitor) 40 mg QPM PO Last administered on 05/02/18 20:19; Admin Dose 40 MG; Start 04/27/18 at 21:00 Gabapentin (Neurontin) 600 mg QHS PO ; Start 04/27/18 at 21:00 Gabapentin (Neurontin) 100 mg AC BREAKFAST LUNCH PO Last administered on 04/29/18 05:21; Admin Dose 100 MG; Start 04/28/18 at 07:00 Potassium Chloride/Dextrose/ Sod Cl 1,000 ml @ 125 mls/hr Q8H IV Last administered on 05/03/18 15:16; Admin Dose 125 MLS/HR; Start 04/27/18 at 21:30 IV Flush (NS 3 ml) 3 ml PER PROTOCOL IV ; Start 04/27/18 at 19:30 Ondansetron HCl (Zofran Inj) 4 mg Q6H PRN IV NAUSEA/VOMITING Last administered on 05/03/18 09:58; Admin Dose 4 MG; Start 04/27/18 at 19:30 Acetaminophen (Tylenol Tab) 650 mg Q6H PRN PO .PAIN 1-3 OR TEMP; Start 04/27/18 at 19:30 Docusate Sodium (Colace) 100 mg Q12H PRN PO .CONSTIPATION Last administered on 04/30/18 06:05; Admin Dose 100 MG; Start 04/27/18 at 19:30 Bisacodyl (Dulcolax) 5 mg DAILY PRN PO .CONSTIPATION Last administered on 05/02/18 09:18; Admin Dose 5 MG; Start 04/27/18 at 19:30 Sodium Biphosphate/ Sodium Phosphate (Fleet Enema) 133 ml DAILY PRN [place] .CONSTIPATION; Start 04/27/18 at 19:30 Zolpidem Tartrate (Ambien) 5 mg QHS PRN PO .INSOMNIA Last administered on 05/02/18 22:33; Admin Dose 5 MG; Start 04/27/18 at 19:30 Enoxaparin Sodium (Lovenox) 30 mg DAILY SC ; Start 04/28/18 at 09:00 Hydromorphone HCl (Dilaudid) 1 mg Q4H PRN IV SEVERE PAIN LEVEL 7-10 Last administered on 05/03/18 15:10; Admin Dose 1 MG; Start 04/27/18 at 21:30 Ceftriaxone Sodium 50 ml @ 100 mls/hr Q24H IVPB Last administered on 05/03/18 09:47; Admin Dose 100 MLS/HR; Start 04/28/18 at 09:00 Methotrexate (Methotrexate) 20 mg Th@0900 PO Last administered on 04/27/18 23:52; Admin Dose 20 MG; Start 04/27/18 at 23:00 Albuterol/ Ipratropium (Duoneb) 3 ml Q4H WHILE AWAKE HHN Last administered on 05/03/18 16:54; Admin Dose 3 ML; Start 04/30/18 at 17:00 Methylnaltrexone [place] (Relistor) 12 mg Q48H SC Last administered on 05/01/18 19:00; Admin Dose 12 MG; Start 05/01/18 at 18:30 Metoclopramide HCl (Reglan) 10 mg Q4H PRN IV NAUSEA AND/OR VOMITING Last administered on 05/03/18 15:10; Admin Dose 10 MG; Start 05/02/18 at 10:30 Megestrol Acetate (Megace Susp) 400 mg BID PO Last administered on 05/03/18 09:58; Admin Dose 400 MG; Start 05/02/18 at 21:00 JAMIE PATTON MD May 03, 2018 17:46
[2018-05-03] MEDS ORDERED: BISACODYL 10 MG SUPP PR ONE (18:00)
[2018-05-03] MEDS: GABAPENTIN 300 MG CAP PO SCH (21:00)
[2018-05-03] MEDS: MONTELUKAST 10 MG TAB PO SCH (21:31)
[2018-05-03] MEDS: ATORVASTATIN 40 MG TAB PO SCH (21:32)
[2018-05-03] MEDS: OLOPATADINE 0.1% 5 ML OPH BOTH EYES SCH ×2 (21:35→22:30)
[2018-05-03] MEDS: ZOLPIDEM 5 MG TAB PO PRN (22:29)
[2018-05-03] MEDS: LORAZEPAM 0.5 MG TAB PO PRN (23:11)
[2018-05-04] MEDS: D5W-0.45 NACL + KCL 20 MEQ 1,000 ML IV SCH ×4 (00:25→21:34)
[2018-05-04] MEDS: ALBUTEROL/IPRATROPIUM (NEB) 3 ML AMP HHN SCH ×5 (00:27→19:48)
[2018-05-04 01:36] VITALS: BP 138/72; PULSE 75; RESP 18
[2018-05-04] MEDS: HYDROmorphONE 1 MG/ML SYG IV PRN ×5 (03:15→20:24)
[2018-05-04] MEDS: METOCLOPRAMIDE 10 MG INJ IV PRN ×4 (03:15→20:23)
[2018-05-04] MEDS: PANTOPRAZOLE (EC) 40 MG TAB PO SCH (06:00)
[2018-05-04] MEDS: LEVOTHYROXINE 88 MCG TAB PO SCH (06:11)
[2018-05-04] MEDS: GABAPENTIN 100 MG CAP PO SCH ×2 (06:11→11:30)
[2018-05-04] MEDS: ONDANSETRON 4 MG INJ IV PRN (07:15)
[2018-05-04 07:36] VITALS: BP 111/59; PULSE 85; RESP 18
[2018-05-04] MEDS: ENOXAPARIN 30 MG/0.3 ML SYG SC SCH (09:00)
[2018-05-04] MEDS: METHOTREXATE 2.5 MG TAB PO SCH (09:00)
[2018-05-04] MEDS: OLOPATADINE 0.1% 5 ML OPH BOTH EYES SCH ×2 (09:28→20:31)
[2018-05-04] MEDS: FOLIC ACID 1 MG TAB PO SCH (09:28)
[2018-05-04] MEDS: MEGESTROL (40 MG/ML) 10ML CUP PO SCH ×2 (09:28→20:29)
[2018-05-04] MEDS: CHOLECALCIFEROL 1,000 UNIT TAB PO SCH ×2 (09:28→20:30)
[2018-05-04] MEDS: METOPROLOL 25 MG TAB PO SCH (09:29)
[2018-05-04] MEDS: METHYLNALTREXONE 12 MG/0.6 ML VIAL SC SCH (09:29)
[2018-05-04] MEDS: ASPIRIN (EC) 81 MG TAB PO SCH (09:29)
[2018-05-04] MEDS: CEFTRIAXONE 2 GM/NS 50 ML IVPB SCH (09:42)
[2018-05-04 13:16] VITALS: BP 138/72; PULSE 84; RESP 18
--- NOTE | 2018-05-04 13:46 | PN ---
Date/Time of Note Date/Time of Note DATE: 05/04/18 TIME: 13:40 Assessment/Plan VTE Prophylaxis Risk score (from Ns)>0 risk: 5 SCD applied (from [facility] [place] Yes SCD contraindicated: patient refusal Pharmacological prophylaxis: NA/contraindicated Pharm contraindication: patient refusal Lines/Catheters IV C[facility]ter Type (from [facility] Mid Line Urinary Cath still in place: No Assessment/Plan Problems: (1) Vomiting Status: Acute Comment: Improving, likely s/p BM. Appreciate GI involvement. Cont. methy lnaltrexone and megestrol and monitor for improvement. If better tomorrow, possible d/c home Qualifiers: Vomiting type: unspecified Vomiting Intractability: intractable Nausea presence: with nausea Qualified Codes: R11.2 - Nausea with vomiting, unspecified (2) Acute UTI Status: Resolved Comment: d/c ceftriaxone (3) Allergic conjunctivitis Status: Acute Comment: Cont. patanol Qualifiers: Laterality: bilateral Qualified Codes: H10.13 - Acute atopic conjunctivitis, bilateral (4) Rheumatoid arthritis Status: Chronic Comment: Cont. methotrexate (5) Asthma-COPD overlap syndrome Status: Chronic Comment: cont. montelukast and duoneb prn (6) Persistent disorder of initiating or maintaining sleep Status: Chronic Comment: cont. zolpidem prn (7) Essential hypertension Status: Chronic Comment: BP controlled. cont. metoprolol daily (8) Hyperlipidemia Status: Chronic Comment: Cont. statin (9) Acquired hypothyroidism Status: Chronic Comment: Cont. LT4 daily (10) Chronic pain syndrome Status: Chronic Comment: Cont. dilaudid and percocet prn. Result Diagram: 05/04/18 0506 05/04/18 0506 Results 24hrs Laboratory Tests Test 05/04/18 05:06 White Blood Count 11.3 #H Red Blood Count 4.66 Hemoglobin 13.9 Hematocrit 43.3 Mean Corpuscular Volume 92.9 Mean Corpuscular Hemoglobin 29.8 Mean Corpuscular Hemoglobin Concent 32.1 Red Cell Distribution Width 14.1 Platelet Count 354 Mean Platelet Volume 9.6 Immature Granulocytes % 0.500 H Neutrophils % 59.1 Lymphocytes % 27.2 Monocytes % 9.6 Eosinophils % 3.1 Basophils % 0.5 Nucleated Red Blood Cells % 0.0 Immature Granulocytes # 0.060 H Neutrophils # 6.7 Lymphocytes # 3.1 H Monocytes # 1.1 H Eosinophils # 0.4 Basophils # 0.1 Nucleated Red Blood Cells # 0.0 Sodium Level 142 Potassium Level 4.0 Chloride Level 107 Carbon Dioxide Level 25 Anion Gap 10 Blood Urea Nitrogen 4 L Creatinine 0.60 Est Glomerular Filtrat Rate mL/min > 60 Glucose Level 103 Calcium Level 10.0 Phosphorus Level 3.2 Magnesium Level 1.8 Total Bilirubin 0.1 L Direct Bilirubin 0.00 Indirect Bilirubin 0.1 Aspartate Amino Transf (AST/SGOT) 32 Alanine Aminotransferase (ALT/SGPT) 33 Alkaline Phosphatase 142 H Total Protein 6.9 Albumin 3.7 Globulin 3.20 Albumin/Globulin Ratio 1.15 Subjective 24 Hr Interval Summary Constitutional: no complaints, improved; No poor po Respiratory: no complaints Cardiovascular: no complaints Gastrointestinal: nausea (continues but improved from yesterday), passing stool; No constipation (s/p large BM), No vomiting Genitourinary: no complaints Musculoskeletal: no complaints Neurologic: no complaints Exam/Review of Systems Exam Vitals VS - Last 72 Hours, by Label Date Temp Pulse Resp B/P (MAP) Pulse Ox O2 O2 Flow FiO2 Time Delivery Rate 05/04/18 98.3 84 18 138/72 100 13:16 (94) 05/04/18 99 2.0 09:01 05/04/18 82 16 99 09:00 05/04/18 Nasal 2.0 08:30 Cannula 05/04/18 98.6 85 18 111/59 96 07:36 (76) 05/04/18 76 20 97 Nasal 2.0 03:22 Cannula 05/04/18 2.0 03:22 05/04/18 98.4 75 18 138/72 100 Nasal 2.0 01:36 (94) Cannula 05/03/18 2.0 20:00 05/03/18 74 18 96 Nasal 2.0 20:00 Cannula 05/03/18 2.0 20:00 05/03/18 98.7 82 20 135/67 97 Nasal 2.0 19:20 (89) Cannula 05/03/18 2.0 16:55 05/03/18 77 17 95 Nasal 2.0 16:54 Cannula 05/03/18 98.3 82 18 134/62 96 13:27 (86) 05/03/18 82 18 96 Nasal 3.0 12:18 Cannula 05/03/18 98.0 79 18 141/64 98 Nasal 2.0 09:50 (89) Cannula 05/03/18 98.0 68 20 116/55 99 Nasal 2.0 09:35 (75) Cannula 05/03/18 98.4 83 18 128/61 96 09:21 (83) 05/03/18 98.1 82 16 128/61 99 Nasal 2.0 09:20 (83) Cannula 05/03/18 Nasal 3.0 08:42 Cannula 05/03/18 70 14 125/57 100 Nasal 3.0 08:34 (79) Cannula 05/03/18 70 17 119/51 100 Nasal 3.0 08:29 (73) Cannula 05/03/18 76 29 116/55 100 Nasal 3.0 08:24 (75) Cannula 05/03/18 76 19 106/53 100 Nasal 3.0 08:19 (70) Cannula 05/03/18 98.0 76 94/47 (63) 100 Nasal 3.0 08:14 Cannula 05/03/18 Nasal 2.0 08:00 Cannula 05/03/18 98.0 76 19 141/66 99 Nasal 2.0 07:42 (91) Cannula 05/03/18 79 18 96 Nasal 3.0 01:45 Cannula 05/03/18 3.0 01:45 05/03/18 99.0 77 18 139/64 98 01:11 (89) 05/02/18 Nasal 2.0 20:25 Cannula 05/02/18 77 18 99 Nasal 3.0 30 20:12 Cannula 05/02/18 3.0 20:12 05/02/18 98.2 73 18 118/59 100 19:15 (78) 05/02/18 72 18 100 Nasal 3.0 17:35 Cannula 05/02/18 3.0 17:35 05/02/18 98.3 78 16 130/68 99 14:58 (88) 05/02/18 80 18 Nasal 2.0 13:56 Cannula 05/02/18 83 19 99 Nasal 2.0 08:53 Cannula 05/02/18 Nasal 2.0 08:10 Cannula 05/02/18 98.5 83 16 135/71 98 07:39 (92) 05/02/18 98.4 94 18 151/70 100 01:46 (97) 05/02/18 2.0 00:55 05/02/18 78 20 97 Nasal 2.0 00:54 Cannula 05/01/18 98 2.0 20:11 05/01/18 80 20 98 Nasal 2.0 20:10 Cannula 05/01/18 Nasal 2.0 20:00 Cannula 05/01/18 98.5 79 18 146/68 99 19:54 (94) 05/01/18 76 22 97 Nasal 2.0 16:55 Cannula 05/01/18 98.0 71 16 145/71 99 15:01 (95) Vital Signs Date Temp Pulse Resp B/P (MAP) Pulse Ox O2 O2 Flow FiO2 Time Delivery Rate 05/04/18 98.3 84 18 138/72 100 13:16 (94) 05/04/18 2.0 09:01 05/04/18 Nasal 08:30 Cannula 05/02/18 30 20:12 Intake and Output 05/03/18 05/03/18 05/04/18 1515:00 23:00 07:00 IntakeIntake Total 550 ml 580 ml 1700 ml OutputOutput Total 400 ml BalanceBalance 550 ml 180 ml 1700 ml Constitutional: alert, oriented, frail Psych: no complaints, nl mood/affect Respiratory: clear to auscultation, normal air movement Cardiovascular: regular rate and rhythm, nl pulses; No edema, No murmurs/extra sounds, No rub Gastrointestinal: soft, nl liver, spleen, non-tender, bowel sounds; No mass, No rebound or guarding Musculoskeletal: nl extremities to inspection Extremities: normal pulses; No cyanosis, No clubbing, No edema 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, nl mental status, nl speech, nl strength Results Results 24hrs Laboratory Tests Test 05/04/18 05:06 White Blood Count 11.3 #H Red Blood Count 4.66 Hemoglobin 13.9 Hematocrit 43.3 Mean Corpuscular Volume 92.9 Mean Corpuscular Hemoglobin 29.8 Mean Corpuscular Hemoglobin Concent 32.1 Red Cell Distribution Width 14.1 Platelet Count 354 Mean Platelet Volume 9.6 Immature Granulocytes % 0.500 H Neutrophils % 59.1 Lymphocytes % 27.2 Monocytes % 9.6 Eosinophils % 3.1 Basophils % 0.5 Nucleated Red Blood Cells % 0.0 Immature Granulocytes # 0.060 H Neutrophils # 6.7 Lymphocytes # 3.1 H Monocytes # 1.1 H Eosinophils # 0.4 Basophils # 0.1 Nucleated Red Blood Cells # 0.0 Sodium Level 142 Potassium Level 4.0 Chloride Level 107 Carbon Dioxide Level 25 Anion Gap 10 Blood Urea Nitrogen 4 L Creatinine 0.60 Est Glomerular Filtrat Rate mL/min > 60 Glucose Level 103 Calcium Level 10.0 Phosphorus Level 3.2 Magnesium Level 1.8 Total Bilirubin 0.1 L Direct Bilirubin 0.00 Indirect Bilirubin 0.1 Aspartate Amino Transf (AST/SGOT) 32 Alanine Aminotransferase (ALT/SGPT) 33 Alkaline Phosphatase 142 H Total Protein 6.9 Albumin 3.7 Globulin 3.20 Albumin/Globulin Ratio 1.15 Medications Medication Current Medications Aspirin (Halfprin) 81 mg DAILY PO Last administered on 05/04/18 09:29; Admin Dose 81 MG; Start 04/28/18 at 09:00 Cholecalciferol (Vitamin D) 1,000 unit BID PO Last administered on 05/04/18 09:28; Admin Dose 1,000 UNIT; Start 04/27/18 at 21:00 Folic Acid (Folic Acid) 1 mg DAILY PO Last administered on 05/04/18 09:28; Admin Dose 1 MG; Start 04/28/18 at 09:00 Levothyroxine Sodium (Synthroid) 88 mcg BEFORE BREAKFAST PO Last administered on 05/02/18 09:05; Admin Dose 88 MCG; Start 04/28/18 at 07:00 Lorazepam (Ativan) 0.5 mg Q6 PRN PO ANXIETY Last administered on 05/03/18 23:11; Admin Dose 0.5 MG; Start 04/27/18 at 19:30 Metoprolol Tartrate (Lopressor) 25 mg DAILY PO Last administered on 05/04/18 09:29; Admin Dose 25 MG; Start 04/28/18 at 09:00 Montelukast Sodium (Singulair) 10 mg QHS PO Last administered on 05/03/18 21:31; Admin Dose 10 MG; Start 04/27/18 at 21:00 Oxycodone/ Acetaminophen (Endocet (10/ 325)) 1 tab Q6 PRN PO SEVERE PAIN LEVEL 7-10 Last administered on 05/01/18 08:34; Admin Dose 1 TAB; Start 04/27/18 at 19:30 Pantoprazole (Protonix Tab) 40 mg DAILY@0600 PO Last administered on 05/01/18 05:56; Admin Dose 40 MG; Start 04/28/18 at 06:00 Atorvastatin Calcium (Lipitor) 40 mg QPM PO Last administered on 05/03/18 21:32; Admin Dose 40 MG; Start 04/27/18 at 21:00 Gabapentin (Neurontin) 600 mg QHS PO ; Start 04/27/18 at 21:00 Gabapentin (Neurontin) 100 mg AC BREAKFAST LUNCH PO Last administered on 04/29/18 05:21; Admin Dose 100 MG; Start 04/28/18 at 07:00 Potassium Chloride/Dextrose/ Sod Cl 1,000 ml @ 125 mls/hr Q8H IV Last administered on 05/04/18 13:23; Admin Dose 125 MLS/HR; Start 04/27/18 at 21:30 IV Flush (NS 3 ml) 3 ml PER PROTOCOL IV ; Start 04/27/18 at 19:30 Ondansetron HCl (Zofran Inj) 4 mg Q6H PRN IV NAUSEA/VOMITING Last administered on 05/04/18 07:15; Admin Dose 4 MG; Start 04/27/18 at 19:30 Acetaminophen (Tylenol Tab) 650 mg Q6H PRN PO .PAIN 1-3 OR TEMP; Start 04/27/18 at 19:30 Docusate Sodium (Colace) 100 mg Q12H PRN PO .CONSTIPATION Last administered on 04/30/18 06:05; Admin Dose 100 MG; Start 04/27/18 at 19:30 Bisacodyl (Dulcolax) 5 mg DAILY PRN PO .CONSTIPATION Last administered on 05/02/18 09:18; Admin Dose 5 MG; Start 04/27/18 at 19:30 Sodium Biphosphate/ Sodium Phosphate (Fleet Enema) 133 ml DAILY PRN ID .CONSTIPATION Last administered on 05/03/18 18:40; Admin Dose 133 ML; Start 04/27/18 at 19:30 Zolpidem Tartrate (Ambien) 5 mg QHS PRN PO .INSOMNIA Last administered on 05/03/18 22:29; Admin Dose 5 MG; Start 04/27/18 at 19:30 Enoxaparin Sodium (Lovenox) 30 mg DAILY SC ; Start 04/28/18 at 09:00 Hydromorphone HCl (Dilaudid) 1 mg Q4H PRN IV SEVERE PAIN LEVEL 7-10 Last administered on 05/04/18 11:36; Admin Dose 1 MG; Start 04/27/18 at 21:30 Ceftriaxone Sodium 50 ml @ 100 mls/hr Q24H IVPB Last administered on 05/04/18 09:42; Admin Dose 100 MLS/HR; Start 04/28/18 at 09:00 Methotrexate (Methotrexate) 20 mg Th@0900 PO Last administered on 04/27/18 2 3:52; Admin Dose 20 MG; Start 04/27/18 at 23:00 Albuterol/ Ipratropium (Duoneb) 3 ml Q4H WHILE AWAKE HHN Last administered on 05/04/18 08:58; Admin Dose 3 ML; Start 04/30/18 at 17:00 Metoclopramide HCl (Reglan) 10 mg Q4H PRN IV NAUSEA AND/OR VOMITING Last administered on 05/04/18 11:35; Admin Dose 10 MG; Start 05/02/18 at 10:30 Megestrol Acetate (Megace Susp) 400 mg BID PO Last administered on 05/04/18 09:28; Admin Dose 400 MG; Start 05/02/18 at 21:00 Methylnaltrexone [place] (Relistor) 12 mg DAILY SC Last administered on 05/04/18 09:29; Admin Dose 12 MG; Start 05/04/18 at 09:00 Olopatadine HCl (Patanol 0.1% Oph) 1 drop BID BOTH EYES Last administered on 05/04/18 09:28; Admin Dose 1 DROP; Start 05/03/18 at 18:00 JAMIE PATTON MD May 04, 2018 13:46
[2018-05-04] MEDS: OXYCODONE/ACETAMINOPHEN (10/325) TAB PO PRN (16:47)
[2018-05-04 19:24] VITALS: BP 128/85; PULSE 77; RESP 18
[2018-05-04] MEDS: GABAPENTIN 300 MG CAP PO SCH (20:30)
[2018-05-04] MEDS: MONTELUKAST 10 MG TAB PO SCH (20:30)
[2018-05-04] MEDS: ATORVASTATIN 40 MG TAB PO SCH (20:30)
[2018-05-04] MEDS: ZOLPIDEM 5 MG TAB PO PRN (21:34)
[2018-05-04] MEDS: LORAZEPAM 0.5 MG TAB PO PRN (22:47)
[2018-05-05] MEDS: METOCLOPRAMIDE 10 MG INJ IV PRN ×6 (00:24→21:34)
[2018-05-05] MEDS: HYDROmorphONE 1 MG/ML SYG IV PRN ×6 (00:24→21:34)
[2018-05-05 01:26] VITALS: BP 130/72; PULSE 82; RESP 17
[2018-05-05] MEDS: ALBUTEROL/IPRATROPIUM (NEB) 3 ML AMP HHN SCH ×8 (01:34→20:03)
[2018-05-05] MEDS: D5W-0.45 NACL + KCL 20 MEQ 1,000 ML IV SCH ×3 (04:34→21:34)
[2018-05-05] MEDS: PANTOPRAZOLE (EC) 40 MG TAB PO SCH (04:58)
[2018-05-05 07:41] VITALS: BP 132/71; PULSE 93; RESP 20
[2018-05-05] MEDS: ENOXAPARIN 30 MG/0.3 ML SYG SC SCH (09:00)
[2018-05-05] MEDS: ASPIRIN (EC) 81 MG TAB PO SCH (09:24)
[2018-05-05] MEDS: OLOPATADINE 0.1% 5 ML OPH BOTH EYES SCH ×2 (09:24→21:52)
[2018-05-05] MEDS: LEVOTHYROXINE 88 MCG TAB PO SCH (09:24)
[2018-05-05] MEDS: GABAPENTIN 100 MG CAP PO SCH ×2 (09:24→11:30)
[2018-05-05] MEDS: METOPROLOL 25 MG TAB PO SCH (09:24)
[2018-05-05] MEDS: FOLIC ACID 1 MG TAB PO SCH (09:24)
[2018-05-05] MEDS: MEGESTROL (40 MG/ML) 10ML CUP PO SCH ×2 (09:24→21:42)
[2018-05-05] MEDS: CHOLECALCIFEROL 1,000 UNIT TAB PO SCH ×2 (09:24→21:42)
[2018-05-05] MEDS: METHYLNALTREXONE 12 MG/0.6 ML VIAL SC SCH (09:28)
[2018-05-05] MEDS: METHOTREXATE 2.5 MG TAB PO SCH ×2 (12:57→14:45)
[2018-05-05 14:33] VITALS: PULSE 79; RESP 20
--- NOTE | 2018-05-05 18:29 | PN ---
Date/Time of Note Date/Time of Note DATE: 05/05/18 TIME: 18:24 Assessment/Plan VTE Prophylaxis Risk score (from Ns)>0 risk: 4 SCD applied (from Ns): No SCD contraindicated: patient refusal Pharmacological prophylaxis: NA/contraindicated Pharm contraindication: patient refusal Lines/Catheters IV [facility] (from [facility] Mid Line Urinary Cath still in place: No Assessment/Plan Problems: (1) Vomiting Status: Acute Comment: Pt. improving slowly. Likely treating chronic, narcotic-induced con stipation is helping here. Cont. methylnaltrexone, megestrol, and prn zofran and reglan. Qualifiers: Vomiting type: unspecified Vomiting Intractability: intractable Nausea presence: with nausea Qualified Codes: R11.2 - Nausea with vomiting, unspecified (2) Allergic conjunctivitis Status: Acute Comment: Cont. patanol Qualifiers: Laterality: bilateral Qualified Codes: H10.13 - Acute atopic conjunctivi tis, bilateral (3) Rheumatoid arthritis Status: Chronic Comment: Pt. heard list of adverse effects of methotrexate today and refused med despite having taken it for 1 year. Strongly advised pt. to take it and reassured her of its safety. Pt. says she will take tomorrow. (4) Asthma-COPD overlap syndrome Status: Chronic Comment: Cont. montelukast and duoneb prn (5) Persistent disorder of initiating or maintaining sleep Status: Chronic Comment: Cont. zolpidem prn (6) Essential hypertension Status: Chronic Comment: BP controlled. Cont. metoprolol (7) Hyperlipidemia Status: Chronic Comment: Cont. atorvastatin (8) Acquired hypothyroidism Status: Chronic Comment: Cont. LT4 (9) Chronic pain syndrome Status: Chronic Comment: Cont. dilaudid, percocet, and methylnaltrexone. Result Diagram: 05/04/18 0506 05/04/18 0506 Subjective 24 Hr Interval Summary Constitutional: no complaints, improved (but not back at baseline) Respiratory: no complaints Cardiovascular: no complaints Gastrointestinal: nausea (persistent, not at baseline); No constipation (had another BM) Genitourinary: no complaints Musculoskeletal: no complaints Neurologic: no complaints Exam/Review of Systems Exam Vitals VS - Last 72 Hours, by Label Date Temp Pulse Resp B/P (MAP) Pulse Ox O2 O2 Flow FiO2 Time Delivery Rate 05/05/18 86 18 97 21 16:25 05/05/18 97 21 16:25 05/05/18 98.4 79 20 99 14:33 05/05/18 81 18 98 Nasal 2.0 13:55 Cannula 05/05/18 70 20 97 Nasal 2.0 09:59 Cannula 05/05/18 98 2.0 08:41 05/05/18 70 20 98 Nasal 2.0 08:39 Cannula 05/05/18 Nasal 2.0 08:10 Cannula 05/05/18 98.4 93 20 132/71 100 07:41 (91) 05/05/18 74 20 98 Nasal 2.0 05:06 Cannula 05/05/18 2.0 01:34 05/05/18 70 20 98 Nasal 2.0 01:34 Cannula 05/05/18 98.8 82 17 130/72 97 01:26 (91) 05/04/18 98.9 20:51 05/04/18 98 2.0 19:54 05/04/18 72 20 98 Nasal 2.0 19:48 Cannula 05/04/18 Nasal 2.0 19:42 Cannula 05/04/18 100.0 77 18 128/85 98 19:24 (99) 05/04/18 99 2.0 14:46 05/04/18 82 20 99 Nasal 2.0 14:45 Cannula 05/04/18 98.3 84 18 138/72 100 13:16 (94) 05/04/18 99 2.0 09:01 05/04/18 82 16 99 09:00 05/04/18 Nasal 2.0 08:30 Cannula 05/04/18 98.6 85 18 111/59 96 07:36 (76) 05/04/18 76 20 97 Nasal 2.0 03:22 Cannula 05/04/18 2.0 03:22 05/04/18 98.4 75 18 138/72 100 Nasal 2.0 01:36 (94) Cannula 05/03/18 2.0 20:00 05/03/18 74 18 96 Nasal 2.0 20:00 Cannula 05/03/18 2.0 20:00 05/03/18 98.7 82 20 135/67 97 Nasal 2.0 19:20 (89) Cannula 05/03/18 2.0 16:55 05/03/18 77 17 95 Nasal 2.0 16:54 Cannula 05/03/18 98.3 82 18 134/62 96 13:27 (86) 05/03/18 82 18 96 Nasal 3.0 12:18 Cannula 05/03/18 98.0 79 18 141/64 98 Nasal 2.0 09:50 (89) Cannula 05/03/18 98.0 68 20 116/55 99 Nasal 2.0 09:35 (75) Cannula 05/03/18 98.4 83 18 128/61 96 09:21 (83) 05/03/18 98.1 82 16 128/61 99 Nasal 2.0 09:20 (83) Cannula 05/03/18 Nasal 3.0 08:42 Cannula 05/03/18 70 14 125/57 100 Nasal 3.0 08:34 (79) Cannula 05/03/18 70 17 119/51 100 Nasal 3.0 08:29 (73) Cannula 05/03/18 76 29 116/55 100 Nasal 3.0 08:24 (75) Cannula 05/03/18 76 19 106/53 100 Nasal 3.0 08:19 (70) Cannula 05/03/18 98.0 76 94/47 (63) 100 Nasal 3.0 08:14 Cannula 05/03/18 Nasal 2.0 08:00 Cannula 05/03/18 98.0 76 19 141/66 99 Nasal 2.0 07:42 (91) Cannula 05/03/18 79 18 96 Nasal 3.0 01:45 Cannula 05/03/18 3.0 01:45 05/03/18 99.0 77 18 139/64 98 01:11 (89) 05/02/18 Nasal 2.0 20:25 Cannula 05/02/18 77 18 99 Nasal 3.0 30 20:12 Cannula 05/02/18 3.0 20:12 05/02/18 98.2 73 18 118/59 100 19:15 (78) Vital Signs Date Temp Pulse Resp B/P (MAP) Pulse Ox O2 O2 Flow FiO2 Time Delivery Rate 05/05/18 86 18 97 21 16:25 05/05/18 98.4 14:33 05/05/18 Nasal 2.0 13:55 Cannula Intake and Output 05/04/18 05/04/18 05/05/18 1515:00 23:00 07:00 IntakeIntake Total 970 ml 1360 ml 1250 ml BalanceBalance 970 ml 1360 ml 1250 ml Constitutional: alert, oriented, well developed Psych: no complaints, nl mood/affect Respiratory: clear to auscultation, normal air movement Cardiovascular: regular rate and rhythm, nl pulses; No edema, No murmurs/extra sounds, No rub Gastrointestinal: soft, nl liver, spleen, non-tender, bowel sounds; No mass, No rebound or guarding Musculoskeletal: nl extremities to inspection Extremities: normal pulses; No cyanosis, No clubbing, No edema 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, nl mental status, nl speech, nl strength Medications Medication Current Medications Aspirin (Halfprin) 81 mg DAILY PO Last administered on 05/05/18 09:24; Admin Dose 81 MG; Start 04/28/18 at 09:00 Cholecalciferol (Vitamin D) 1,000 unit BID PO Last administered on 05/05/18 09:24; Admin Dose 1,000 UNIT; Start 04/27/18 at 21:00 Folic Acid (Folic Acid) 1 mg DAILY PO Last administered on 05/05/18 09:24; Admin Dose 1 MG; Start 04/28/18 at 09:00 Levothyroxine Sodium (Synthroid) 88 mcg BEFORE BREAKFAST PO Last administered on 05/05/18 09:24; Admin Dose 88 MCG; Start 04/28/18 at 07:00 Lorazepam (Ativan) 0.5 mg Q6 PRN PO ANXIETY Last administered on 05/04/18 22:47; Admin Dose 0.5 MG; Start 04/27/18 at 19:30 Metoprolol Tartrate (Lopressor) 25 mg DAILY PO Last administered on 05/05/18 09:24; Admin Dose 25 MG; Start 04/28/18 at 09:00 Montelukast Sodium (Singulair) 10 mg QHS PO Last administered on 05/04/18 20:30; Admin Dose 10 MG; Start 04/27/18 at 21:00 Oxycodone/ Acetaminophen (Endocet (10/ 325)) 1 tab Q6 PRN PO SEVERE PAIN LEVEL 7-10 Last administered on 05/04/18 16:47; Admin Dose 1 TAB; Start 04/27/18 at 19:30 Pantoprazole (Protonix Tab) 40 mg DAILY@0600 PO Last administered on 05/05/18 04:58; Admin Dose 40 MG; Start 04/28/18 at 06:00 Atorvastatin Calcium (Lipitor) 40 mg QPM PO Last administered on 05/04/18 20:3 0; Admin Dose 40 MG; Start 04/27/18 at 21:00 Gabapentin (Neurontin) 600 mg QHS PO ; Start 04/27/18 at 21:00 Gabapentin (Neurontin) 100 mg AC BREAKFAST LUNCH PO Last administered on 04/29/18 05:21; Admin Dose 100 MG; Start 04/28/18 at 07:00 Potassium Chloride/Dextrose/ Sod Cl 1,000 ml @ 125 mls/hr Q8H IV Last administered on 05/05/18 13:31; Admin Dose 125 MLS/HR; Start 04/27/18 at 21:30 IV Flush (NS 3 ml) 3 ml PER PROTOCOL IV ; Start 04/27/18 at 19:30 Ondansetron HCl (Zofran Inj) 4 mg Q6H PRN IV NAUSEA/VOMITING Last administered on 05/04/18 07:15; Admin Dose 4 MG; Start 04/27/18 at 19:30 Acetaminophen (Tylenol Tab) 650 mg Q6H PRN PO .PAIN 1-3 OR TEMP; Start 04/27/18 at 19:30 Docusate Sodium (Colace) 100 mg Q12H PRN PO .CONSTIPATION Last administered on 04/30/18 06:05; Admin Dose 100 MG; Start 04/27/18 at 19:30 Bisacodyl (Dulcolax) 5 mg DAILY PRN PO .CONSTIPATION Last administered on 05/02/18 09:18; Admin Dose 5 MG; Start 04/27/18 at 19:30 Sodium Biphosphate/ Sodium Phosphate (Fleet Enema) 133 ml DAILY PRN [place] .CONSTIPATION Last administered on 05/03/18 18:40; Admin Dose 133 ML; Start 04/27/18 at 19:30 Zolpidem Tartrate (Ambien) 5 mg QHS PRN PO .INSOMNIA Last administered on 05/04/18 21:34; Admin Dose 5 MG; Start 04/27/18 at 19:30 Enoxaparin Sodium (Lovenox) 30 mg DAILY SC ; Start 04/28/18 at 09:00 Hydromorphone HCl (Dilaudid) 1 mg Q4H PRN IV SEVERE PAIN LEVEL 7-10 Last administered on 05/05/18 17:34; Admin Dose 1 MG; Start 04/27/18 at 21:30 Albuterol/ Ipratropium (Duoneb) 3 ml Q4H WHILE AWAKE HHN Last administered on 05/05/18 16:25; Admin Dose 3 ML; Start 04/30/18 at 17:00 Metoclopramide HCl (Reglan) 10 mg Q4H PRN IV NAUSEA AND/OR VOMITING Last administered on 05/05/18 17:34; Admin Dose 10 MG; Start 05/02/18 at 10:30 Megestrol Acetate (Megace Susp) 400 mg BID PO Last administered on 05/05/18 09:24; Admin Dose 400 MG; Start 05/02/18 at 21:00 Methylnaltrexone [place] (Relistor) 12 mg DAILY SC Last administered on 05/05/18 09:28; Admin Dose 12 MG; Start 05/04/18 at 09:00 Olopatadine HCl (Patanol 0.1% Oph) 1 drop BID BOTH EYES Last administered on 05/05/18 09:24; Admin Dose 1 DROP; Start 05/03/18 at 18:00 Methotrexate (Methotrexate) 20 mg Fr@1000 PO ; Start 05/05/18 at 10:00 JAMIE PATTON MD May 05, 2018 18:29
[2018-05-05 19:25] VITALS: BP 142/65; PULSE 86; RESP 20
[2018-05-05] MEDS: GABAPENTIN 300 MG CAP PO SCH (21:00)
[2018-05-05] MEDS: MONTELUKAST 10 MG TAB PO SCH (21:41)
[2018-05-05] MEDS: ATORVASTATIN 40 MG TAB PO SCH (21:41)
[2018-05-05] MEDS: ZOLPIDEM 5 MG TAB PO PRN (22:19)
[2018-05-05] MEDS: LORAZEPAM 0.5 MG TAB PO PRN (23:02)
[2018-05-06] MEDS: METOCLOPRAMIDE 10 MG INJ IV PRN ×3 (01:16→10:14)
[2018-05-06] MEDS: HYDROmorphONE 1 MG/ML SYG IV PRN ×3 (01:16→10:11)
[2018-05-06 01:35] VITALS: BP 129/63; PULSE 86; RESP 16
[2018-05-06] MEDS: ALBUTEROL/IPRATROPIUM (NEB) 3 ML AMP HHN SCH ×3 (02:49→13:41)
[2018-05-06] MEDS: D5W-0.45 NACL + KCL 20 MEQ 1,000 ML IV SCH ×2 (05:14→13:30)
[2018-05-06] MEDS: PANTOPRAZOLE (EC) 40 MG TAB PO SCH (05:16)
[2018-05-06] MEDS: GABAPENTIN 100 MG CAP PO SCH ×2 (06:39→11:30)
[2018-05-06 07:24] VITALS: BP 144/69; PULSE 94; RESP 20
[2018-05-06] MEDS: ENOXAPARIN 30 MG/0.3 ML SYG SC SCH (09:00)
[2018-05-06] MEDS: METHYLNALTREXONE 12 MG/0.6 ML VIAL SC SCH (09:24)
[2018-05-06] MEDS: OLOPATADINE 0.1% 5 ML OPH BOTH EYES SCH (09:24)
[2018-05-06] MEDS: MEGESTROL (40 MG/ML) 10ML CUP PO SCH (09:25)
[2018-05-06] MEDS: ASPIRIN (EC) 81 MG TAB PO SCH (09:25)
[2018-05-06] MEDS: LEVOTHYROXINE 88 MCG TAB PO SCH (09:25)
[2018-05-06] MEDS: METOPROLOL 25 MG TAB PO SCH (09:26)
[2018-05-06] MEDS: FOLIC ACID 1 MG TAB PO SCH (09:26)
[2018-05-06] MEDS: CHOLECALCIFEROL 1,000 UNIT TAB PO SCH (09:26)
[2018-05-06] MEDS: BISACODYL (EC) 5 MG TAB PO PRN (09:49)
[2018-05-06] MEDS: DOCUSATE SODIUM 100 MG CAP PO PRN (09:49)
[2018-05-06] MEDS ORDERED: METHOTREXATE 2.5 MG TAB PO SCH (10:00)
--- NOTE | 2018-05-06 12:37 | PDOCDIS ---
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 Alex and w/ Dr. Esquivel as scheduled JAMIE PATTON MD May 06, 2018 12:37
[2018-05-06] MEDS ORDERED: MEGE400O4 PO (12:43)
[2018-05-06] MEDS ORDERED: NALO25TA PO (12:43)
[2018-05-06] MEDS ORDERED: GABA300C16 PO (12:43)
[2018-05-06] MEDS ORDERED: GABA100C14 PO (12:43)
--- NOTE | 2018-05-06 12:50 | DS ---
Date/Time of Note Date/Time of Note DATE: 05/06/18 TIME: 12:44 Discharge Summary Admission/Discharge Info Admit Date/Time Apr 29, 2018 at 16:20 Discharge Date/Time 05/06/2018 @ 1400 Discharge Diagnosis Nausea and vomiting due to chronic opioid induced constipation Patient Condition: Fair Consults Chetty: GI Procedures CT A/P: 1. No evidence of acute inflammatory process in the abdomen or pelvis. 2. Status post cholecystectomy. 3. Nonobstructing left renal calculus. 4. 2 cm simple appearing left renal cyst. 5. Atherosclerosis. 6. Degenerative changes of the spine. Old compression fractures of T12 and L1. 7. Bilateral total hip arthroplasties. 8. Bronchial wall thickening bilaterally in the lower lobes consistent with bronchitis. MRCP: 1. Status post cholecystectomy. 2. Postoperative prominence of the common bile duct measuring 11 mm. Low signal material within the common bile duct may represent sludge/debris. No calcified stones are seen EGD: superficial nodular gastritis. Biopsy (-) for H.pylori. Hx of Present Illness 72 y/o C F w/ h/o RA, osteoporosis w/ lumbar crush fractures, chronic pain syndrome due to these, HTN, hyperlipidemia, COPD/asthma, BrCA, hypothyroidism, diastolic dysfunction, and insomnia s/p recent admit 1 m. ago for chest pain. Was in [facility] until 8 days ago when she saw her pain management doctor who added nortriptyline 10 mg bid. Pt. took 3 doses and became very ill w/ nausea and vomiting. Stopped med but N/V continued. Yesterday became intractable and came to [facility]. Found to be stable from standpoint of vitals and labs but also found to have UTI on UA. Admitted. Pt. expresses desire to be DNR. Hospital Course Pt. treated aggressively w/ metoclopramide and ondansetron. Nausea failed to improve. Treated w/ ceftriaxone for presumed UTI although culture was non- conclusive. This was d/c'ed after 1 week. Nausea and vomiting continued. GI consulted and pt. started on megestrol and methylnaltrexone. Pt. had MRCP, EGD although no obvious etiology of extreme nausea. Pt. began to have regular BM's w/ the methylnaltrexone. Pt. began to improve clinically. Today pt. tolerating regular diet. Not nauseated at this time. Pt. will need chronic therapy for opioid induced constipation to prevent further N/V. Home Meds Active Scripts Naloxegol Oxalate (Movantik) 25 Mg Tablet, 25 MG PO DAILY for 30 Days, #30 TAB 3 Refills Prov:JAMIE PATTON MD 05/06/18 Megestrol Acetate (Megestrol Acetate) 400 Mg/10 Ml Oral.susp, 10 ML PO BID for 30 Days, #600 ML 5 Refills Prov:JAMIE PATTON MD 05/06/18 Gabapentin* (Gabapentin*) 300 Mg Capsule, 600 MG PO QHS for 30 Days, #60 CAP 5 Refills Prov:JAMIE PATTON MD 05/06/18 Gabapentin* (Gabapentin*) 100 Mg Capsule, 100 MG PO AC BREAKFAST LUNCH for 30 Days, #60 CAP 5 Refills Prov:JAMIE PATTON MD 05/06/18 Reported Medications Zinc Oxide/[place] Starch (CALDESENE BABY POWDER) 142 Gm Powder, 1 APPLIC TP DAILY 04/27/18 Lactobacillus Acidophilus (Probiotic) 1 Each Capsule, 1 CAP PO DAILY, CAP 04/27/18 Melatonin (Melatonin) 10 Mg Capsule, 20 MG PO HS, CAP 04/27/18 Methotrexate* (Methotrexate*) 2.5 Mg Tab, 20 MG PO WEEKLY, TAB 04/27/18 Cranberry (Cranberry) 400 Mg Capsule, 400 MG PO DAILY, CAP 04/27/18 Aspirin* (Aspirin* EC) 81 Mg Tablet.dr, 81 MG PO DAILY, TAB 04/27/18 Lorazepam* (Lorazepam*) 0.5 Mg Tablet, 0.5 MG PO Q6 PRN for ANXIETY, TAB 04/27/18 Oxycodone HCl/Acetaminophen (Oxycodone-Acetaminophen 10-325) 1 Each Tablet, 1 TAB PO Q6 PRN for SEVERE PAIN LEVEL 7-10 04/27/18 Nortriptyline Hcl* (Nortriptyline Hcl*) 10 Mg Capsule, 10 MG PO BID 04/27/18 Ipratropium-Albuterol (Ipratropium-Albuterol) 0.5-3 Mg/3 Ml Ampul.neb, 3 ML INHALATION Q6 PRN for WHEEZING AND SOB, #30 VIAL 04/27/18 Metoprolol Tartrate* (Lopressor*) 25 Mg Tablet, 25 MG PO DAILY, #60 TAB 03/21/18 Folic Acid* (Folic Acid*) 1 Mg Tablet, 1 MG PO DAILY, TAB 03/21/18 Ferrous Sulfate* (Ferrous Sulfate*) 325 Mg Tabec, 325 MG PO DAILY, TAB 03/21/18 Pantoprazole* (Pantoprazole*) 40 Mg Tablet.dr, 40 MG PO DAILY, TAB 03/21/18 Cholecalciferol* (Vitamin D3*) 1,000 Unit Tablet, 1000 UNIT PO BID, TAB 03/21/18 Montelukast Sodium* (Montelukast Sodium*) 10 Mg Tablet, 10 MG PO QHS, #30 TAB 03/21/18 Rosuvastatin Calcium* (Crestor*) 20 Mg Tablet, 20 MG PO QHS, #30 TAB 01/10/17 Ondansetron Hcl* (Ondansetron Hcl*) 4 Mg Tablet, 4 MG PO Q6H PRN for NAUSEA AND/OR VOMITING, TAB 07/20/16 Levothyroxine Sodium* (Levothyroxine Sodium*) 88 Mcg Tablet, 88 MCG PO BEFORE BREAKFAST, #30 TAB 07/20/16 Follow-up Plan f/u w/ Dr. Alex and w/ Dr. Esquivel as scheduled Primary Care Provider Abhinav Esquivel MD Time spent on discharge: > 30 minutes JAMIE PATTON MD May 06, 2018 12:50
[2018-05-06 14:14] VITALS: BP 120/67; PULSE 88; RESP 20
[2018-05-06] MEDS: OXYCODONE/ACETAMINOPHEN (10/325) TAB PO PRN (14:42)
== END 2018-05-06 14:45 | disposition home or self-care (01) | DRG 392 ==
LOC: E/R 14:49 → 2NE 19:25 → OBSVTOIN 04-29 16:20
PROVIDERS: ADMIT Internal Medicine; ATTEND Internal Medicine
PROC: 0DB68ZX Excision of Stomach, Via Natural or Artificial Opening Endoscopic, Diagnostic (ICD-10-PCS; principal; 2018-05-03 08:00)
DX: K59.03 Drug induced constipation (principal); N39.0 Urinary tract infection, site not specified; K29.50 Unspecified chronic gastritis without bleeding; R11.2 Nausea with vomiting, unspecified; M06.9 Rheumatoid arthritis, unspecified; T40.2X5A Adverse effect of other opioids, initial encounter; Y92.009 Unspecified place in unspecified non-institutional (private) residence as the place of occurrence of the external cause; G89.4 Chronic pain syndrome; I10 Essential (primary) hypertension; E78.5 Hyperlipidemia, unspecified; J44.9 Chronic obstructive pulmonary disease, unspecified; E03.9 Hypothyroidism, unspecified; E86.0 Dehydration; G47.00 Insomnia, unspecified; H10.13 Acute atopic conjunctivitis, bilateral; Z96.643 Presence of artificial hip joint, bilateral; Z96.651 Presence of right artificial knee joint; Z96.611 Presence of right artificial shoulder joint; Z87.891 Personal history of nicotine dependence
CPT/HCPCS: 74176; 74181; 80048; 80053; 81001; 83036; 83690; 83735; 84100; 84484; 85025; 87086; 88305; 88312; 88313; 93005; 94640; 94644; 96374; 96375; G0378; J0696; J1170; J1650; J2405; J2765; J3480; J7030

== ENCOUNTER 2018-11-08 08:48 | Inpatient (IN) | payer MEDICARE ==
[~2018-11-08] VITALS: Ht 165.1 cm; Wt 59.1 kg
[~2018-11-08 08:48] MED LIST changes: +ASC500 PO; +ASPI-817 PO; -ASPI-831 PO; +ATOR20TA65 PO; +CRAN400C PO; +CRES20 PO; +FLUT1BLS3 INH; -HYDR-3980 PO; -HYDR-4011 PO; +IPRA3AMP29 INHALATION; +LACT1CAP47 PO; -LEVO500T10 PO; +LORA0.5T PO; +MEGE400O4 PO; +MELA10CA PO; -MELA1TAB10 PO; +MET25 PO; +METO5TAB2 PO; +NALO25TA PO; +NITR100C6 PO; -NYST15OI12 TOP; +ONDA4TAB14 PO; +OXYC-431 PO; -OXYC-438 PO; -QUET25TA PO; -ROSU20TA PO; -SERT50TA PO; -SUVO10TA2 PO; -TERB250T46 PO; +TIOT4MIS2 INH; -TIOT4MIS4 INHALATION; -TRA100 PO; +[UNRECOGNIZED DRUG - CODE] TP
[2018-11-08] MEDS ORDERED: SOD CHLORIDE 0.9% 1,000 ML IV STA (09:08)
[2018-11-08] MEDS ORDERED: ONDANSETRON 4 MG INJ IV STA (09:08)
[2018-11-08] MEDS ORDERED: CEFTRIAXONE 1 GM/50 ML (PMX) 50 ML IVPB ONE (12:00)
[2018-11-08] MEDS ORDERED: ONDANSETRON 4 MG INJ IV PRN (12:30)
[2018-11-08] MEDS ORDERED: ACETAMINOPHEN 325 MG TAB PO PRN (12:30)
[2018-11-08 16:41] VITALS: Ht 165.1 cm; Wt 59.1 kg
[2018-11-08] MEDS ORDERED: NACL 0.9% 3 ML SYG IV SCH (18:00)
[2018-11-08] MEDS ORDERED: ALBUTEROL/IPRATROPIUM (NEB) 3 ML AMP HHN PRN (18:00)
[2018-11-08] MEDS ORDERED: ZOLPIDEM 5 MG TAB PO PRN (18:00)
[2018-11-08] MEDS ORDERED: LORAZEPAM 0.5 MG TAB PO PRN (18:00)
[2018-11-08] MEDS ORDERED: NA PHOSPHATE/BIPHOS 133 ML ENEMA PR PRN (18:00)
[2018-11-08] MEDS ORDERED: METOCLOPRAMIDE 10 MG INJ IV PRN (18:30)
[2018-11-08] MEDS: SOD CHLORIDE 0.9% 1,000 ML IV SCH (19:03)
[2018-11-08] MEDS: CEFTRIAXONE 1 GM/50 ML (PMX) 50 ML IVPB SCH (19:04)
[2018-11-08 19:57] VITALS: BP 123/68; PULSE 94; RESP 18
[2018-11-08] MEDS: METOCLOPRAMIDE 5 MG TAB PO SCH (20:36)
[2018-11-08] MEDS: HEPARIN 5,000 UNIT/1 ML VIAL SC SCH (20:36)
[2018-11-08] MEDS: OXYCODONE/ACETAMINOPHEN (10/325) TAB PO PRN (21:20)
[2018-11-09 01:36] VITALS: BP 130/61; PULSE 78; RESP 18
[2018-11-09] MEDS: SOD CHLORIDE 0.9% 1,000 ML IV SCH ×4 (03:39→23:39)
[2018-11-09] MEDS: PANTOPRAZOLE 40 MG INJ IV SCH ×2 (05:38→17:24)
[2018-11-09] MEDS: LEVOTHYROXINE 88 MCG TAB PO SCH (06:48)
[2018-11-09] MEDS: HYDROmorphONE 0.5 MG/0.5 ML SYG IV PRN ×3 (07:39→22:57)
[2018-11-09 07:43] VITALS: BP 113/64; PULSE 88; RESP 18
[2018-11-09] MEDS: TIOTROPIUM 18 MCG CAPSULE INHA DEV INH SCH (09:36)
[2018-11-09] MEDS: FLUTICASONE/VILANTEROL 100-25 INH SCH (09:36)
[2018-11-09] MEDS: ASCORBIC ACID 500 MG TAB PO SCH (09:38)
[2018-11-09] MEDS: METOCLOPRAMIDE 5 MG TAB PO SCH ×2 (09:38→12:33)
[2018-11-09] MEDS: HEPARIN 5,000 UNIT/1 ML VIAL SC SCH ×2 (09:43→21:00)
[2018-11-09] MEDS: METOPROLOL 25 MG TAB PO SCH (09:44)
[2018-11-09] MEDS ORDERED: IOHEXOL 14.3 MG(I)/ML (ADULT) BTL PO ONE (13:00)
[2018-11-09] MEDS: ONDANSETRON 4 MG INJ IV PRN (13:08)
[2018-11-09] MEDS ORDERED: MAGNESIUM SULFATE 2 GM/50 ML 50 ML IVPB ONE (13:30)
[2018-11-09 13:42] VITALS: BP 116/57; PULSE 73; RESP 18
[2018-11-09] MEDS: CEFTRIAXONE 1 GM/50 ML (PMX) 50 ML IVPB SCH (17:25)
[2018-11-09 20:00] VITALS: BP 111/59; PULSE 70; RESP 18
[2018-11-09] MEDS ORDERED: IOHEXOL 100 ML ONE (21:54)
[2018-11-09] MEDS ORDERED: SOD CHLORIDE 0.9% 100 ML ONE (21:54)
[2018-11-10] MEDS: METOCLOPRAMIDE 5 MG TAB PO SCH ×4 (00:41→21:08)
[2018-11-10] MEDS: ONDANSETRON 4 MG INJ IV PRN ×2 (01:30→09:59)
[2018-11-10 02:15] VITALS: BP 112/55; PULSE 73; RESP 18
[2018-11-10] MEDS: HYDROmorphONE 0.5 MG/0.5 ML SYG IV PRN ×4 (03:24→21:08)
[2018-11-10] MEDS: PANTOPRAZOLE 40 MG INJ IV SCH ×2 (06:57→17:51)
[2018-11-10 07:22] VITALS: BP 107/61; PULSE 77; RESP 19
[2018-11-10] MEDS: LEVOTHYROXINE 88 MCG TAB PO SCH (08:06)
[2018-11-10] MEDS: SOD CHLORIDE 0.9% 1,000 ML IV SCH ×2 (08:06→19:39)
[2018-11-10] MEDS: ASCORBIC ACID 500 MG TAB PO SCH (08:32)
[2018-11-10] MEDS: METOPROLOL 25 MG TAB PO SCH (08:33)
[2018-11-10] MEDS: TIOTROPIUM 18 MCG CAPSULE INHA DEV INH SCH (08:33)
[2018-11-10] MEDS: FLUTICASONE/VILANTEROL 100-25 INH SCH (08:34)
[2018-11-10] MEDS: HEPARIN 5,000 UNIT/1 ML VIAL SC SCH ×2 (08:37→21:00)
[2018-11-10] MEDS: POTASSIUM CHLORIDE 100 ML IVPB SCH ×2 (09:57→12:35)
[2018-11-10] MEDS ORDERED: MINERAL OIL 240 ML LOT TOP SCH (13:30)
[2018-11-10 14:21] VITALS: BP 106/59; PULSE 77; RESP 18
[2018-11-10] MEDS: EUCERIN 113 GM CR TOP SCH ×2 (15:00→21:00)
[2018-11-10] MEDS ORDERED: LIDOCAINE 1% (MDV) 20 ML INJ ONE (15:45)
[2018-11-10] MEDS ORDERED: FENTAnyl 50 MCG/ML VIAL ONE (16:02)
[2018-11-10] MEDS: CEFTRIAXONE 1 GM/50 ML (PMX) 50 ML IVPB SCH (17:51)
[2018-11-10 20:05] VITALS: BP 109/56; PULSE 78; RESP 16
[2018-11-10] MEDS: ATORVASTATIN 20 MG TAB PO SCH (21:08)
[2018-11-11] MEDS: SOD CHLORIDE 0.9% 1,000 ML IV SCH ×2 (01:23→04:40)
[2018-11-11] MEDS: HYDROmorphONE 0.5 MG/0.5 ML SYG IV PRN ×6 (01:28→22:01)
[2018-11-11 02:00] VITALS: BP 99/51; PULSE 78; RESP 16
[2018-11-11] MEDS: LEVOTHYROXINE 88 MCG TAB PO SCH (06:21)
[2018-11-11] MEDS: PANTOPRAZOLE 40 MG INJ IV SCH ×2 (06:21→17:19)
[2018-11-11 08:38] VITALS: BP 123/58; PULSE 74; RESP 18
[2018-11-11] MEDS: HEPARIN 5,000 UNIT/1 ML VIAL SC SCH ×2 (09:00→22:09)
[2018-11-11] MEDS: EUCERIN 113 GM CR TOP SCH ×2 (09:10→21:59)
[2018-11-11] MEDS: METOCLOPRAMIDE 5 MG TAB PO SCH ×3 (09:10→22:00)
[2018-11-11] MEDS: FLUTICASONE/VILANTEROL 100-25 INH SCH (09:10)
[2018-11-11] MEDS: TIOTROPIUM 18 MCG CAPSULE INHA DEV INH SCH (09:10)
[2018-11-11] MEDS: METOPROLOL 25 MG TAB PO SCH (09:11)
[2018-11-11] MEDS: ASCORBIC ACID 500 MG TAB PO SCH (09:11)
[2018-11-11] MEDS: NYSTATIN 30 GM POWDER BTL TOP SCH ×2 (13:32→21:59)
[2018-11-11] MEDS: ONDANSETRON 4 MG INJ IV PRN (13:32)
[2018-11-11] MEDS: BISACODYL (EC) 5 MG TAB PO PRN (13:34)
[2018-11-11 15:04] VITALS: BP 119/57; PULSE 74; RESP 20
[2018-11-11] MEDS ORDERED: MAGNESIUM HYDROXIDE 311 MG TAB PO PRN (15:30)
[2018-11-11] MEDS: CEFTRIAXONE 1 GM/50 ML (PMX) 50 ML IVPB SCH (17:20)
[2018-11-11 20:00] VITALS: BP 123/57; PULSE 72; RESP 16
[2018-11-11] MEDS: ATORVASTATIN 20 MG TAB PO SCH (22:00)
[2018-11-12 02:00] VITALS: BP 124/62; PULSE 76; RESP 18
[2018-11-12] MEDS: PANTOPRAZOLE 40 MG INJ IV SCH ×2 (06:25→18:12)
[2018-11-12] MEDS: LEVOTHYROXINE 88 MCG TAB PO SCH (06:32)
[2018-11-12] MEDS: HYDROmorphONE 0.5 MG/0.5 ML SYG IV PRN ×5 (07:08→23:39)
[2018-11-12 08:05] VITALS: BP 120/65; PULSE 72; RESP 16
[2018-11-12] MEDS: METOCLOPRAMIDE 5 MG TAB PO SCH ×3 (08:55→20:41)
[2018-11-12] MEDS: EUCERIN 113 GM CR TOP SCH ×2 (08:55→20:42)
[2018-11-12] MEDS: TIOTROPIUM 18 MCG CAPSULE INHA DEV INH SCH (08:55)
[2018-11-12] MEDS: ASCORBIC ACID 500 MG TAB PO SCH (08:55)
[2018-11-12] MEDS: NYSTATIN 30 GM POWDER BTL TOP SCH ×2 (08:55→20:43)
[2018-11-12] MEDS: FLUTICASONE/VILANTEROL 100-25 INH SCH (08:56)
[2018-11-12] MEDS: METOPROLOL 25 MG TAB PO SCH (08:57)
[2018-11-12] MEDS: HEPARIN 5,000 UNIT/1 ML VIAL SC SCH ×2 (09:02→20:46)
[2018-11-12] MEDS: ONDANSETRON 4 MG INJ IV PRN ×2 (11:26→19:34)
[2018-11-12 13:07] VITALS: BP 106/55; PULSE 73; RESP 18
[2018-11-12] MEDS ORDERED: TRIMETHOBENZAMIDE 300 MG CAP PO PRN (17:00)
[2018-11-12] MEDS: CEFTRIAXONE 1 GM/50 ML (PMX) 50 ML IVPB SCH (18:12)
[2018-11-12 19:58] VITALS: BP 112/54; PULSE 65; RESP 16
[2018-11-12] MEDS: ATORVASTATIN 20 MG TAB PO SCH (20:41)
[2018-11-13 02:00] VITALS: BP 112/58; PULSE 65; RESP 16
[2018-11-13] MEDS: HYDROmorphONE 0.5 MG/0.5 ML SYG IV PRN ×5 (04:06→20:04)
[2018-11-13] MEDS: LEVOTHYROXINE 88 MCG TAB PO SCH (06:05)
[2018-11-13] MEDS: PANTOPRAZOLE 40 MG INJ IV SCH ×2 (06:05→18:27)
[2018-11-13 08:01] VITALS: BP 124/63; PULSE 64; RESP 20
[2018-11-13] MEDS: EUCERIN 113 GM CR TOP SCH ×3 (09:00→21:51)
[2018-11-13] MEDS: NYSTATIN 30 GM POWDER BTL TOP SCH ×3 (09:00→21:52)
[2018-11-13] MEDS: TIOTROPIUM 18 MCG CAPSULE INHA DEV INH SCH (09:52)
[2018-11-13] MEDS: FLUTICASONE/VILANTEROL 100-25 INH SCH (09:52)
[2018-11-13] MEDS: METOCLOPRAMIDE 5 MG TAB PO SCH ×3 (09:53→21:45)
[2018-11-13] MEDS: ASCORBIC ACID 500 MG TAB PO SCH (09:53)
[2018-11-13] MEDS: METOPROLOL 25 MG TAB PO SCH (09:54)
[2018-11-13] MEDS: HEPARIN 5,000 UNIT/1 ML VIAL SC SCH ×2 (09:56→21:49)
[2018-11-13 14:25] VITALS: BP 142/65; PULSE 64; RESP 20
[2018-11-13 19:43] VITALS: BP 122/58; PULSE 65; RESP 17
[2018-11-13] MEDS: ONDANSETRON 4 MG INJ IV PRN (20:04)
[2018-11-13] MEDS: ATORVASTATIN 20 MG TAB PO SCH (21:44)
[2018-11-13] MEDS: OXYCODONE/ACETAMINOPHEN (10/325) TAB PO PRN (23:11)
[2018-11-14] MEDS: HYDROmorphONE 0.5 MG/0.5 ML SYG IV PRN ×6 (00:07→21:11)
[2018-11-14 02:29] VITALS: BP 117/59; PULSE 63; RESP 16
[2018-11-14] MEDS: ONDANSETRON 4 MG INJ IV PRN ×3 (04:00→21:10)
[2018-11-14] MEDS: PANTOPRAZOLE 40 MG INJ IV SCH ×2 (06:29→17:03)
[2018-11-14] MEDS: LEVOTHYROXINE 88 MCG TAB PO SCH (06:29)
[2018-11-14] MEDS: ASCORBIC ACID 500 MG TAB PO SCH (08:07)
[2018-11-14] MEDS: METOCLOPRAMIDE 5 MG TAB PO SCH ×3 (08:07→21:15)
[2018-11-14] MEDS: HEPARIN 5,000 UNIT/1 ML VIAL SC SCH ×2 (08:07→21:36)
[2018-11-14] MEDS: METOPROLOL 25 MG TAB PO SCH (08:08)
[2018-11-14] MEDS: EUCERIN 113 GM CR TOP SCH ×2 (08:13→21:17)
[2018-11-14] MEDS: NYSTATIN 30 GM POWDER BTL TOP SCH ×2 (08:13→21:17)
[2018-11-14] MEDS: FLUTICASONE/VILANTEROL 100-25 INH SCH (08:14)
[2018-11-14 08:21] VITALS: BP 136/62; PULSE 60; RESP 16
[2018-11-14] MEDS: TIOTROPIUM 18 MCG CAPSULE INHA DEV INH SCH (09:30)
[2018-11-14 20:03] VITALS: BP 128/65; PULSE 70; RESP 17
[2018-11-14] MEDS: ATORVASTATIN 20 MG TAB PO SCH (21:15)
[2018-11-14] MEDS: NITROFURANTOIN (SR) 100 MG CAP PO SCH (21:15)
[2018-11-15] MEDS: HYDROmorphONE 0.5 MG/0.5 ML SYG IV PRN ×5 (01:02→18:31)
[2018-11-15 01:43] VITALS: BP 127/58; PULSE 61; RESP 18
[2018-11-15] MEDS: PANTOPRAZOLE 40 MG INJ IV SCH ×2 (05:22→18:31)
[2018-11-15] MEDS: LEVOTHYROXINE 88 MCG TAB PO SCH (07:27)
[2018-11-15 08:09] VITALS: BP 134/61; PULSE 65; RESP 16
[2018-11-15] MEDS: OXYCODONE/ACETAMINOPHEN (10/325) TAB PO PRN (08:35)
[2018-11-15] MEDS: NYSTATIN 30 GM POWDER BTL TOP SCH ×2 (09:40→20:54)
[2018-11-15] MEDS: METOCLOPRAMIDE 5 MG TAB PO SCH ×3 (09:41→20:54)
[2018-11-15] MEDS: NITROFURANTOIN (SR) 100 MG CAP PO SCH ×2 (09:41→20:54)
[2018-11-15] MEDS: FLUTICASONE/VILANTEROL 100-25 INH SCH (09:41)
[2018-11-15] MEDS: TIOTROPIUM 18 MCG CAPSULE INHA DEV INH SCH (09:41)
[2018-11-15] MEDS: EUCERIN 113 GM CR TOP SCH ×2 (09:41→20:54)
[2018-11-15] MEDS: ASCORBIC ACID 500 MG TAB PO SCH (09:42)
[2018-11-15] MEDS: METOPROLOL 25 MG TAB PO SCH (09:43)
[2018-11-15] MEDS: HEPARIN 5,000 UNIT/1 ML VIAL SC SCH ×2 (09:46→21:10)
[2018-11-15] MEDS: BISACODYL (EC) 5 MG TAB PO PRN (13:57)
[2018-11-15] MEDS: DOCUSATE SODIUM 100 MG CAP PO PRN (13:57)
[2018-11-15] MEDS: ONDANSETRON 4 MG INJ IV PRN (13:57)
[2018-11-15 14:22] VITALS: BP 132/62; PULSE 60; RESP 17
[2018-11-15 20:00] VITALS: BP 129/60; PULSE 58; RESP 18
[2018-11-15] MEDS: ATORVASTATIN 20 MG TAB PO SCH (20:54)
[2018-11-15] MEDS: METHYLNALTREXONE 12 MG/0.6 ML VIAL SC SCH (20:55)
[2018-11-16] VITALS (8 sets, daily range): BP systolic 128–142; BP diastolic 62–77; PULSE 67–83; RESP 18–31
[2018-11-16] MEDS: ONDANSETRON 4 MG INJ IV PRN (00:34)
[2018-11-16] MEDS: D5W-0.45 NACL + KCL 20 MEQ 1,000 ML IV SCH ×3 (00:35→22:01)
[2018-11-16] MEDS: HYDROmorphONE 0.5 MG/0.5 ML SYG IV PRN ×4 (00:35→22:01)
[2018-11-16] MEDS: LEVOTHYROXINE 88 MCG TAB PO SCH (05:42)
[2018-11-16] MEDS: PANTOPRAZOLE (EC) 40 MG TAB PO SCH ×2 (05:42→18:36)
[2018-11-16] MEDS: NYSTATIN 30 GM POWDER BTL TOP SCH ×2 (08:31→20:19)
[2018-11-16] MEDS: TIOTROPIUM 18 MCG CAPSULE INHA DEV INH SCH (08:31)
[2018-11-16] MEDS: FLUTICASONE/VILANTEROL 100-25 INH SCH (08:31)
[2018-11-16] MEDS: EUCERIN 113 GM CR TOP SCH ×2 (08:31→20:19)
[2018-11-16] MEDS: METHYLNALTREXONE 12 MG/0.6 ML VIAL SC SCH (08:33)
[2018-11-16] MEDS: HEPARIN 5,000 UNIT/1 ML VIAL SC SCH ×2 (09:00→20:43)
[2018-11-16] MEDS: METOPROLOL 25 MG TAB PO SCH (09:00)
[2018-11-16] MEDS: ASCORBIC ACID 500 MG TAB PO SCH (09:00)
[2018-11-16] MEDS: METOCLOPRAMIDE 5 MG TAB PO SCH ×3 (09:00→20:19)
[2018-11-16] MEDS: NITROFURANTOIN (SR) 100 MG CAP PO SCH ×2 (09:00→20:18)
[2018-11-16] MEDS: ATORVASTATIN 20 MG TAB PO SCH (20:18)
[2018-11-17 02:28] VITALS: BP 128/63; PULSE 69; RESP 16
[2018-11-17] MEDS: D5W-0.45 NACL + KCL 20 MEQ 1,000 ML IV SCH ×2 (06:00→16:00)
[2018-11-17] MEDS: LEVOTHYROXINE 88 MCG TAB PO SCH (06:18)
[2018-11-17] MEDS: PANTOPRAZOLE (EC) 40 MG TAB PO SCH ×2 (06:19→17:32)
[2018-11-17 07:38] VITALS: BP 157/74; PULSE 85; RESP 18
[2018-11-17] MEDS ORDERED: BARIUM SULFATE 135 ML (E-Z HD) PO ONE (08:09)
[2018-11-17] MEDS: HYDROmorphONE 0.5 MG/0.5 ML SYG IV PRN ×2 (08:14→14:17)
[2018-11-17] MEDS: METHYLNALTREXONE 12 MG/0.6 ML VIAL SC SCH (08:15)
[2018-11-17] MEDS: METOCLOPRAMIDE 5 MG TAB PO SCH ×2 (08:16→13:17)
[2018-11-17] MEDS: ASCORBIC ACID 500 MG TAB PO SCH (08:16)
[2018-11-17] MEDS: NITROFURANTOIN (SR) 100 MG CAP PO SCH (08:16)
[2018-11-17] MEDS: EUCERIN 113 GM CR TOP SCH (08:17)
[2018-11-17] MEDS: METOPROLOL 25 MG TAB PO SCH (08:17)
[2018-11-17] MEDS: NYSTATIN 30 GM POWDER BTL TOP SCH (08:17)
[2018-11-17] MEDS: FLUTICASONE/VILANTEROL 100-25 INH SCH (08:18)
[2018-11-17] MEDS: TIOTROPIUM 18 MCG CAPSULE INHA DEV INH SCH (08:19)
[2018-11-17] MEDS: HEPARIN 5,000 UNIT/1 ML VIAL SC SCH (08:28)
[2018-11-17 14:07] VITALS: BP 115/63; PULSE 71; RESP 18
[2018-11-17] MEDS: DOCUSATE SODIUM 100 MG CAP PO PRN (14:24)
[2018-11-17] MEDS: BISACODYL (EC) 5 MG TAB PO PRN (14:24)
[2018-11-17] MEDS ORDERED: DOCUSATE SODIUM 100 MG CAP PO SCH (21:00)
== END 2018-11-17 19:50 | disposition home or self-care (01) | DRG 442 ==
LOC: E/R 08:48 → 2NE 12:13 → OBSVTOIN 11-09 14:42
PROVIDERS: ADMIT Internal Medicine; ATTEND Internal Medicine
PROC: 0FB13ZX Excision of Right Lobe Liver, Percutaneous Approach, Diagnostic (ICD-10-PCS; principal; 2018-11-10)
PROC: 0DB58ZX Excision of Esophagus, Via Natural or Artificial Opening Endoscopic, Diagnostic (ICD-10-PCS; 2018-11-12)
PROC: 0DB68ZX Excision of Stomach, Via Natural or Artificial Opening Endoscopic, Diagnostic (ICD-10-PCS; 2018-11-12)
DX: K76.0 Fatty (change of) liver, not elsewhere classified (principal); N39.0 Urinary tract infection, site not specified; J45.901 Unspecified asthma with (acute) exacerbation; M80.88XA Other osteoporosis with current pathological fracture, vertebra(e), initial encounter for fracture; R16.0 Hepatomegaly, not elsewhere classified; J44.9 Chronic obstructive pulmonary disease, unspecified; E86.0 Dehydration; M06.9 Rheumatoid arthritis, unspecified; I10 Essential (primary) hypertension; G89.4 Chronic pain syndrome; I70.0 Atherosclerosis of aorta; E78.5 Hyperlipidemia, unspecified; E03.9 Hypothyroidism, unspecified; Z66 Do not resuscitate; F41.9 Anxiety disorder, unspecified; K20.9 Esophagitis, unspecified; B35.1 Tinea unguium; K29.30 Chronic superficial gastritis without bleeding
CPT/HCPCS: 36415; 74176; 74178; 74240; 76705; 77012; 80048; 80053; 81001; 82105; 82378; 83036; 83605; 83690; 83735; 84436; 84443; 84479; 84484; 85025; 85610; 86300; 86301; 86304; 87086; 88305; 88307; 88313; 93005; 96361; 96374; 96375; 99217; C9113; G0378; J0696; J1170; J1644; J2405; J3010; J3475; J3480; J7030; Q9967

== ENCOUNTER 2018-11-29 17:10 | Emergency (ER) | payer MEDICARE ==
[~2018-11-29] VITALS: Ht 152.4 cm; Wt 55.0 kg
[~2018-11-29 17:10] MED LIST changes: -ASPI-817 PO; -CHOL100062 PO; -CRES20 PO; -FER325 PO; -FOLI-49 PO; -GABA100C14 PO; -GABA300C16 PO; -LACT1CAP47 PO; -MEGE400O4 PO; -MELA10CA PO; -MET25 PO; -MONT10TA24 PO; -NALO25TA PO; -ONDA4TAB95 PO; -TIOT4MIS2 INH; -[UNRECOGNIZED DRUG - CODE] TP
[2018-11-29 17:17] VITALS: Ht 152.4 cm; Wt 55.0 kg
[2018-11-29] MEDS ORDERED: morphine 4 MG/ML VIAL IV STA (17:28)
[2018-11-29] MEDS ORDERED: SODIUM CHLORIDE 0.9% 1L BAG IV* STA (17:28)
[2018-11-29] MEDS ORDERED: ONDANSETRON 4 MG INJ IV STA (17:28)
[2018-11-29] MEDS ORDERED: KETOROLAC 15 MG INJ IV STA (18:27)
[2018-11-29 19:26] VITALS: BP 130/89; PULSE 75; RESP 23
== END 2018-11-29 20:33 | disposition home or self-care (01) ==
LOC: E/R 17:10
DX: R11.2 Nausea with vomiting, unspecified (principal); J45.909 Unspecified asthma, uncomplicated; R10.11 Right upper quadrant pain; Z96.643 Presence of artificial hip joint, bilateral
CPT/HCPCS: 36415; 71045; 74176; 80053; 83605; 84484; 85025; 85610; 85730; 87040; 93005; 96374; 96375; 99285; J1885; J2270; J2405; J7030